=== PATIENT | female | born 1950 | race African-American/Black ===

== ENCOUNTER 2017-02-05 13:53 | Inpatient (IN) | payer MEDICARE, MEDICAID ==
[~2017-02-05] VITALS: Ht 165.1 cm; Wt 55.8 kg
[~2017-02-05 13:53] MED LIST: AMITIZA24 MCG ORAL; BISACODYL5 MG ORAL; IMIPRAMINE HCL50 MG PO; METOPROLOL TART50 M1 ORAL; NORVASC5 MG ORAL; PERCOCET 10-321 EACH ORAL; PLAVIX75 MG ORAL; PROTONIX40 MG ORAL; ZOFRAN8 MG ORAL; ZOLPIDEM TARTRA10 MG ORAL
[2017-02-05] MEDS ORDERED: RANITIDINE HCL150 M2 (19:43)
[2017-02-05] MEDS ORDERED: OXYCODONE-ACET1 EAC5 (19:43)
[2017-02-05] MEDS ORDERED: METOPROLOL TART25 MG (19:43)
[2017-02-05] MEDS ORDERED: ATORVASTATIN CA10 MG (19:43)
[2017-02-05] MEDS ORDERED: BETHANECHOL CHL10 MG (19:43)
[2017-02-05 20:05] VITALS: BP 154/96
[2017-02-05] MEDS ORDERED: Metoclopramide 10mg/2ml Inj IVP PRN (20:15)
[2017-02-05] MEDS ORDERED: TOFRANIL50 MG ORAL (20:31)
[2017-02-05] MEDS ORDERED: Bisacodyl EC 5mg tab ORAL PRN (21:00)
[2017-02-05 21:41] LABS: TROPONIN I < 0.30 ng/mL (<=0.30)
[2017-02-05] MEDS: Amitiza 24mcg cap ORAL SCH (21:48)
[2017-02-05] MEDS: Metoprolol 25mg tab ORAL SCH (21:48)
[2017-02-05] MEDS: D5NS 1,000 ML IV SCH (22:13)
[2017-02-05] MEDS: Nitroglycerin 2% oint pkt TOPIC SCH (23:45)
[2017-02-06 00:20] VITALS: BP 108/77
[2017-02-06 01:25] LABS: APPEARANCE,URINE CLEAR; KETONES,URINE 3+ (NEGATIVE); LEUKOCYTE ESTERASE ,URINE 1+ (NEGATIVE); NITRITE,URINE NEGATIVE (NEGATIVE); PH,URINE 5 (4.5-8.0); PROTEIN,URINE 2+ (NEGATIVE); UROBILINOGEN,URINE NORMAL MG/DL (0.0-1.0)
[2017-02-06 01:35] LABS: SQUAMOUS EPITHELIAL CELL,UR MANY /LPF (NONE/OCC)
[2017-02-06 01:36] LABS: BACTERIA,URINE FEW /HPF; MUCUS,URINE FEW /LPF (NONE/OCC)
--- NOTE | 2017-02-06 01:58 | Consultation ---
DATE OF CONSULTATION: 02/05/2017 CARDIOLOGY CONSULTATION REQUESTING PHYSICIAN: Sudhakar Conti M.D. REASON FOR CONSULTATION: Management of uncontrolled hypertension in the setting of intractable vomiting and ischemic cardiomyopathy. HISTORY OF PRESENT ILLNESS: This is a pleasant 66-year-old, female, known to me from prior care. She has a known history of ischemic heart disease with prior myocardial infarction and multivessel coronary artery stenting. She also has a history of labile hypertension complicated by episodes of cyclic vomiting that limit oral intake the later of which then began over the past day or two. The patient has not had any chest pain or shortness of breath but has had severe abdominal pain due to vomiting. PAST MEDICAL HISTORY: Includes coronary artery disease, hypertensive heart disease, gastroparesis with cyclic vomiting, hyperlipidemia, osteoarthritis, degenerative disk disease, and fibromyalgia. MEDICATION: Reviewed and reconciled. ALLERGIES: None. SOCIAL HISTORY: Former smoker. No alcohol or substance abuse. FAMILY HISTORY: Notable for hypertension in her mother. REVIEW OF SYSTEMS: Outpatient echocardiogram in the last six months has revealed normal ejection fraction with concentric hypertrophy and a diastolic relaxation abnormality. An exercise stress test was negative for inducible ischemia although exercise capacity was limited. There is no history of seizure or stroke. There is no history of diabetes or thyroid impairment. There is no history of blood clots in the legs. She has been on anti-lipid therapy. PHYSICAL EXAMINATION: GENERAL: Thin and frail, in moderate distress. VITAL SIGNS: Blood pressure 154/96, pulse 79, respirations 20, and afebrile. Room air oxygen saturation is 98%. HEENT: Conjunctivae are pink. Oropharynx is clear. Mucous membranes dry. NECK: Supple. No jugular venous distention. LUNGS: Clear. CARDIAC: Regular rhythm and rate. Normal S1 and S2 with a fourth heart sound. ABDOMEN: Soft and nondistended. Mild diffuse tenderness. No guarding or rebound. EXTREMITIES: Without edema. LABORATORY DATA: Troponin is negative. IMPRESSION: 1. Cyclic vomiting with acute episode at this time. 2. Mild hypovolemia and dehydration. 3. Hypertensive heart disease with accelerated blood pressure. 4. Ischemic cardiomyopathy presently with stable angina. PLAN: 1. Antiemetics. 2. Hydration. 3. Topical antihypertensives and nitrates. 4. Continue anti-platelet therapy and beta-blockade as tolerated. 5. May hold anti-lipid drug at this time. Jamar Pabon M.D. DR: CARLO JOB#: [id number] CC:
[2017-02-06 04:00] VITALS: BP 129/74
[2017-02-06] MEDS: Nitroglycerin 2% oint pkt TOPIC SCH ×3 (06:00→19:55)
[2017-02-06] MEDS: D5NS 1,000 ML IV SCH ×2 (06:10→19:55)
[2017-02-06 07:24] LABS: BASOPHILS % (AUTO) 1.1 % (0.0-2.0); EOSINOPHILS % (AUTO) 0.1 % (0.0-3.0); LYMPHOCYTES % (AUTO) 16.1 % (20.0-45.0); MEAN CORPUSCULAR HEMOGLOBIN 27.3 PG (27.0-31.0); MEAN CORPUSCULAR VOLUME 83 FL (80-99); MEAN PLATELET VOLUME 6.6 FL (6.5-10.1); MONOCYTES % (AUTO) 6.4 % (1.0-10.0); NEUTROPHILS % (AUTO) 76.3 % (45.0-75.0); PLATELET COUNT 334 K/UL (150-450); RED BLOOD COUNT 4.82 M/UL (4.20-5.40); RED CELL DISTRIBUTION WIDTH 13.4 % (11.6-14.8); WHITE BLOOD COUNT 10.7 K/UL (4.8-10.8)
[2017-02-06 07:43] LABS: ALANINE AMINOTRANSFERASE 8 U/L (3-33); ALBUMIN/GLOBULIN RATIO 1.4 (1.0-2.7); ANION GAP 17 (5-15); ASPARTATE AMINO TRANSFERASE 13 U/L (5-40); CARBON DIOXIDE 26 mEQ/L (20-30); CHLORIDE 100 mEQ/L (98-107); CREATININE 0.7 mg/dL (0.5-0.9); GLOMERULAR FILTRATION RATE > 60 mL/min (>60); HEMOLYSIS 1; POTASSIUM 3.7 mEQ/L (3.4-4.9); SODIUM 143 mEQ/L (135-145); TOTAL PROTEIN 7.2 g/dL (6.6-8.7)
[2017-02-06 08:01] VITALS: BP 125/73
[2017-02-06] MEDS: Metoprolol 25mg tab ORAL SCH ×2 (08:16→22:00)
[2017-02-06] MEDS: Amitiza 24mcg cap ORAL SCH ×2 (08:16→21:59)
[2017-02-06] MEDS ORDERED: Lidocaine 1% Plain 30 ml INJ ONE (10:00)
[2017-02-06] MEDS ORDERED: Heparin 2000 units/Ns 1000ml INJ ONE (10:00)
--- NOTE | 2017-02-06 12:23 | Diagnostic Imaging Report ---
Indication: Abdominal pain Technique: Spiral acquisitions obtained through the abdomen and pelvis. Patient given oral contrast. No IV contrast utilized, per referring physician request.. Multiplanar reconstructions were generated. Total dose length product 721 mGycm. CTDIvol(s) 14 mGy Comparison: 06/25/2015 Findings: Normal appendix. There is colonic diverticulosis again demonstrated. No evidence of acute diverticulitis. No small bowel distention or small bowel wall thickening. No free or loculated intraperitoneal air or fluid. There is equivocal mild wall thickening of the distal esophagus. There is equivocal mild diffuse wall thickening of the stomach, although this is probably artifact of under distention. Lack of IV contrast limits assessment of solid organs. The liver, gallbladder, bile ducts, are unremarkable. The pancreatic duct is mildly ectatic. The pancreas is otherwise unremarkable. Spleen, adrenals, kidneys are unremarkable. No mesenteric or retroperitoneal mass or adenopathy. No pelvic mass or adenopathy. Uterus, ovaries, bladder are unremarkable. The lung bases demonstrate posterior dependent atelectatic changes. The bones are unremarkable. Numerous bilateral buttock calcified injection granulomata are again demonstrated. Impression: Equivocal mild distal esophageal wall thickening, could indicate process such as esophagitis Equivocal mild gastric wall thickening, probably artifact of under distention, inflammation and not completely excludable. Correlate with clinical findings No definite acute abnormality otherwise Colonic diverticulosis. No evidence of diverticulitis. Other findings as noted, including bilateral basilar pulmonary dependent atelectatic changes, bilateral buttock calcified injection granulomata The CT scanner at [facility] is accredited by the [employer] [place] [employer] and the scans are performed using protocols designed to limit radiation exposure to as low as reasonably achievable to attain images of sufficient resolution adequate for diagnostic evaluation.
[2017-02-06 12:43] VITALS: BP 128/79
--- NOTE | 2017-02-06 13:29 | Diagnostic Imaging Report ---
Indications: Needs long-term IV access Technique: Ultrasound confirms patent compressible left basilic vein. Total sterile technique, including sterile probe cover and sterile gel, hat, mask,, sterile gown, large sterile drape, and preparation with 2% chlorhexidine utilized. Local anesthesia with 1% lidocaine. Under real-time ultrasound guidance, puncture basilic vein using 21-gauge needle, documented and archived, passage 0.018 guidewire under direct fluoroscopy, which was used to determine appropriate catheter length, exchange for 5 Lao peel-away sheath. 5 Lao Bard dual-lumen power PICC cut to 42 cm. It was inserted through the peel-away sheath. Peel-away sheath and guidewire removed. Catheter fixed to the skin. Both catheter ports aspirated and flushed. Patient tolerated procedure well, without immediate complication. Digital radiograph documents satisfactory catheter tip position, at the cavoatrial junction. Total fluoroscopy time 0.7 minutes. Total dose area product 7.4 dGycm2 Impression: Successful placement of left arm PICC under sonographic and fluoroscopic guidance, as described above.
[2017-02-06 16:00] VITALS: BP 129/73
--- NOTE | 2017-02-06 16:58 | History and Physical Report ---
DATE OF ADMISSION: 02/05/2017 CHIEF COMPLAINT: Intractable nausea and vomiting and possible gastrointestinal bleed. HISTORY OF PRESENT ILLNESS: The patient is a 66-year-old female, well known to me. She has a history of ischemic cardiomyopathy, hypertension, and fibromyalgia. She has a history of degenerative disk disease and cervical radiculopathy. She has had prior episodes of cyclic vomiting for the last several days. She has had intractable nausea and vomiting with over 20 episodes of vomiting a day. She had been unable to tolerate fluids or orals and was becoming progressively weaker. persistent nausea, vomiting, and dehydration. She is now admitted for further evaluation and care. The patient has had several episodes now of coffee-ground bloody emesis. She continues to have abdominal pain. There are no reports of any melena. The patient is on antiplatelet therapy for her coronary artery disease. PAST MEDICAL HISTORY: As above. PAST SURGICAL HISTORY: Includes neck and shoulder surgery. CURRENT MEDICATIONS: Reconciled and reviewed. ALLERGIES: Include oranges. FAMILY HISTORY: Noncontributory. SOCIAL HISTORY: Negative for tobacco, ethanol, or drugs. REVIEW OF SYSTEMS: General: No fever or chills. HEENT: No headaches or visual changes. Cardiopulmonary: No chest pain. No shortness of breath. GASTROINTESTINAL: Positive nausea and vomiting. Positive hematemesis. No melena. GENITOURINARY: No urgency or frequency. MUSCULOSKELETAL: Positive history of chronic lower back pain, neck pain, and shoulder pain. NEUROLOGIC: No evidence of seizures. PHYSICAL EXAMINATION: VITAL SIGNS: Temperature was 98 degrees, blood pressure 108/77, pulse 122, and respirations 20. GENERAL: The patient is a well-developed thin female, in no apparent distress. She is awake, alert, and oriented x4. HEENT: Her mucous membranes are dry. NECK: Supple. There is no jugular venous distention. HEART: Regular rate and rhythm. LUNGS: Clear. ABDOMEN: Soft, but diffusely tender with guarding, but there is no rebound. EXTREMITIES: Without clubbing, cyanosis, or edema. LABORATORY DATA: White count 11, hemoglobin 13, hematocrit 39, and platelet count 334,000. Sodium 143. Creatinine was 0.7. Alkaline phosphatase is 116. UA was clear. ASSESSMENT: This is a pleasant female admitted with complaints of intractable nausea and vomiting. She does have some coffee ground and bloody emesis, therefore, she may have a gastrointestinal bleed possible Zkaiya-Garvin tear. 1. Cyclic vomiting. 2. Possible upper gastrointestinal bleed. 3. Hypertension. 4. Ischemic cardiomyopathy. 5. History of chronic lower back pain and fibromyalgia. PLAN: 1. NPO. 2. Intravenous fluids. 3. Intravenous antiemetic therapy. 4. Continue IV proton pump inhibitor. 5. We will order a CAT scan of the abdomen and Cardiology evaluation has been obtained. 6. We will reassess the patient's anti-platelet therapy if she continues to have bloody emesis. Sudhakar Conti M.D. DR: DEREK JOB#: [id number] CC:
[2017-02-06 20:00] VITALS: BP 129/73
[2017-02-06] MEDS ORDERED: Imipramine 10mg tab ORAL ONE (21:00)
--- NOTE | 2017-02-06 21:38 | Consultation ---
DATE OF CONSULTATION: 02/06/2017 GASTROENTEROLOGY CONSULTATION: CHIEF COMPLAINT: I was asked to see this patient for evaluation of nausea and vomiting. HISTORY OF PRESENT ILLNESS: The patient is a pleasant 66-year-old woman with a previous history of cyclic nausea and vomiting syndrome, who comes in with vomiting. The patient states that this episode of vomiting subsided just one day prior to admission, but was severe and eventually resulted in hematemesis which is another reason for the consultation. The patient states that she gets these episodes about two times a year and that they only last a few days. She has been diagnosed with cyclic nausea and vomiting syndrome and she has been given imipramine. The patient also has severe chronic constipation and I have placed the patient as an outpatient on Linzess and Amitiza with effective results. I have advised the patient to always take the Amitiza with food. The patient saw me about a week or so ago for recurrent nausea and vomiting. At that time, she was placed on bethanechol at night for motility support and she was advised to return if symptoms persist. PAST MEDICAL HISTORY: History of coronary artery disease, history of hiatal hernia, gastritis, hypertension, gastroparesis, gastroesophageal reflux disease, recent incomplete colonoscopy, history of fibromyalgia, history of degenerative joint disease, osteoarthritis, status post cardiac stent placement, status post shoulder surgery, and carpal tunnel surgery. ALLERGIES: None. FAMILY HISTORY: Positive for hypertension in mother. SOCIAL HISTORY: The patient is a former smoker, but she does not drink alcohol. REVIEW OF SYSTEMS: Otherwise negative. PHYSICAL EXAMINATION: GENERAL: This is a pleasant woman, seen in her room HEENT: Normocephalic and atraumatic. Sclerae anicteric. Oropharynx clear. NECK: Supple. CHEST: Clear to auscultation. CARDIOVASCULAR: Revealed regular rate. ABDOMEN: Soft with good bowel sounds. There is no organomegaly. EXTREMITIES: Revealed no edema. NEUROLOGIC: Nonfocal. LABORATORY DATA: Noted . ASSESSMENT: This patient presents with recurrent bouts of nausea, vomiting, and now with hematemesis. The amount of hematemesis small and I suspect this may be due to Zakiya-Garvin tear. More importantly however, management for long-term recurrent nausea and vomiting which has presumably been diagnosed with cyclic nausea vomiting syndrome. Imipramine has been tried, but a trial of Elavil can be given instead. I would also resume bethanechol for motility support since Reglan with complication of of long-term side effects. Should the patient's symptoms persist, further evaluation may be necessary. RECOMMENDATIONS: 1. Proton pump inhibitor. 2. Elavil trial . 3. Oral diet to clear liquids as tolerated. 4. Follow symptoms and her vomiting pattern. Thank you for asking me to participate in care of this patient . Kim Varghese M.D. DR: Lilia JOB#: [id number] CC:
[2017-02-07] VITALS (10 sets, daily range): BP systolic 114–154; BP diastolic 69–97
--- NOTE | 2017-02-07 02:58 | Progress Note ---
DATE: 02/06/2017 CARDIOLOGY PROGRESS NOTE SUBJECTIVE: The patient has had vomiting and retching with some blood in the emesis as well. She notes pain in her chest with the vomiting, but pressure-like sensation as well. She is pretty sure, "that it is not her heart pain." OBJECTIVE: VITAL SIGNS: Blood pressure of 129/73, pulse 70, respirations 20, and afebrile. NECK: Supple. LUNGS: Clear. CARDIAC: Regular rhythm and rate. Normal S1 and S2. ABDOMEN: Soft, mildly distended, and mildly tender. EXTREMITIES: No edema. LABORATORY AND DIAGNOSTIC DATA: CAT scan of the abdomen, gastric wall thickening and esophageal wall thickening distally. Hemoglobin is 13.2. Potassium is 3.7. Urinalysis with 2 to 4 white cells. IMPRESSION: 1. Hematemesis. 2. Possible esophagitis and gastritis. 3. History of cyclic vomiting. 4. Ischemic cardiomyopathy with history of myocardial infarction and multivessel coronary stents. 5. Possible anginal syndrome. PLAN: 1. NPO. 2. Hold anti-platelet therapy. 3. Check troponin level. 4. Proton pump inhibitor. 5. Anticipate endoscopy. Jamar Pabon M.D. DR: GUNNAR JOB#: [id number] CC:
[2017-02-07] MEDS: D5NS 1,000 ML IV SCH ×2 (05:02→13:00)
[2017-02-07] MEDS: Nitroglycerin 2% oint pkt TOPIC SCH ×3 (05:15→18:42)
[2017-02-07 06:37] LABS: BASOPHILS % (AUTO) 0.8 % (0.0-2.0); EOSINOPHILS % (AUTO) 1.2 % (0.0-3.0); LYMPHOCYTES % (AUTO) 26.4 % (20.0-45.0); MEAN CORPUSCULAR HEMOGLOBIN 27.5 PG (27.0-31.0); MEAN CORPUSCULAR HGB CONC 32.5 G/DL (32.0-36.0); MEAN CORPUSCULAR VOLUME 85 FL (80-99); MEAN PLATELET VOLUME 6.5 FL (6.5-10.1); MONOCYTES % (AUTO) 6.6 % (1.0-10.0); NEUTROPHILS % (AUTO) 64.9 % (45.0-75.0); PLATELET COUNT 267 K/UL (150-450); RED BLOOD COUNT 4.24 M/UL (4.20-5.40); RED CELL DISTRIBUTION WIDTH 13.6 % (11.6-14.8); WHITE BLOOD COUNT 8.1 K/UL (4.8-10.8)
[2017-02-07 07:02] LABS: TROPONIN I < 0.30 ng/mL (<=0.30)
[2017-02-07 07:03] LABS: ALANINE AMINOTRANSFERASE 7 U/L (3-33); ALBUMIN/GLOBULIN RATIO 1.5 (1.0-2.7); ANION GAP 16 (5-15); ASPARTATE AMINO TRANSFERASE 17 U/L (5-40); CALCIUM 8.8 mg/dL (8.6-10.2); CARBON DIOXIDE 26 mEQ/L (20-30); CHLORIDE 102 mEQ/L (98-107); CREATININE 0.7 mg/dL (0.5-0.9); GLOMERULAR FILTRATION RATE > 60 mL/min (>60); HEMOLYSIS 2; MAGNESIUM 1.7 mg/dL (1.7-2.5); POTASSIUM 3.1 mEQ/L (3.4-4.9); SODIUM 144 mEQ/L (135-145); TOTAL PROTEIN 6.2 g/dL (6.6-8.7)
[2017-02-07] MEDS: Amitiza 24mcg cap ORAL SCH ×2 (09:13→21:41)
[2017-02-07] MEDS: Metoprolol 25mg tab ORAL SCH ×2 (09:15→21:41)
--- NOTE | 2017-02-07 09:44 | General Progress Note ---
Assessment/Plan Problem List: (1) tachy (2) Dehydration ICD Codes: E86.0 - Dehydration SNOMED: 61786382 (3) Intractable nausea and vomiting ICD Codes: R11.10 - Intractable nausea and vomiting SNOMED: 233155503 (4) Cyclic vomiting syndrome ICD Codes: G43.A0 - Cyclical vomiting, not intractable SNOMED: 66533841 (5) GIB (gastrointestinal bleeding) ICD Codes: K92.2 - Gastrointestinal hemorrhage, unspecified SNOMED: 24905530 (6) CAD (coronary artery disease) ICD Codes: I25.10 - Atherosclerotic heart disease of [place] coronary artery without angina pectoris SNOMED: 66053943 (7) Hypertension ICD Codes: I10 - Essential (primary) hypertension SNOMED: 94395221 Status: stable, progressing Assessment/Plan cont ivf pain rx antiemtics egd PPI rx improving slowly Subjective ROS Limited/Unobtainable: No Constitutional: Reports: malaise, weakness HEENT: Reports: no symptoms Cardiovascular: Reports: no symptoms Respiratory: Reports: no symptoms Gastrointestinal/Abdominal: Reports: abdominal pain, poor fluid intake, vomiting Genitourinary: Reports: no symptoms Neurologic/Psychiatric: Reports: no symptoms Endocrine: Reports: no symptoms Hematologic/Lymphatic: Reports: no symptoms Allergies: Coded Allergies: ORANGE JUICE (Verified Allergy, Unknown, 06/25/14) All Systems: reviewed and negative except above Subjective less vomiting. still has some blood in vomitus. on iv pain rx no chest pain no sob no fever or chills npo for egd. Objective Last 24 Hour Vital Signs Date Time Temp Pulse Resp B/P Pulse Ox O2 Delivery O2 Flow Rate FiO2 02/07/17 09:15 80 138/88 02/07/17 05:40 98.2 02/07/17 05:15 137/73 02/07/17 04:00 97.7 75 18 137/73 99 Room Air 02/07/17 00:00 97.2 68 18 117/73 99 Room Air 02/06/17 22:00 70 129/73 02/06/17 20:00 97.3 70 20 129/73 91 Room Air 02/06/17 19:55 129/73 02/06/17 16:00 97.3 70 20 129/73 91 Room Air 02/06/17 12:57 128/79 02/06/17 12:43 98.2 69 20 128/79 95 Room Air Intake and Output 02/06/17 02/07/17 19:00 07:00 Intake Total 900 ml 1480 ml Balance 900 ml 1480 ml Intake Oral 480 ml IV Total 900 ml 1000 ml # Voids 2 Laboratory Tests 02/07/17 05:00: White Blood Count 8.1, Red Blood Count 4.24, Hemoglobin 11.7L, Hematocrit 35.9L , Mean Corpuscular Volume 85, Mean Corpuscular Hemoglobin 27.5, Mean Corpuscular Hemoglobin Concent 32.5, Red Cell Distribution Width 13.6, Platelet Count 267, Mean Platelet Volume 6.5, Neutrophils (%) (Auto) 64.9, Lymphocytes (% ) (Auto) 26.4, Monocytes (%) (Auto) 6.6, Eosinophils (%) (Auto) 1.2, Basophils ( %) (Auto) 0.8, Sodium Level 144, Potassium Level 3.1L, Chloride Level 102, Carbon Dioxide Level 26, Anion Gap 16H, Blood Urea Nitrogen 4L, Creatinine 0.7, Estimat Glomerular Filtration Rate > 60, Glucose Level 93, Calcium Level 8.8, Magnesium Level 1.7, Total Bilirubin 0.2, Aspartate Amino Transf (AST/SGOT) 17, Alanine Aminotransferase (ALT/SGPT) 7, Alkaline Phosphatase 109H, Troponin I < 0.30, Total Protein 6.2L, Albumin 3.8, Globulin 2.4, Albumin/Globulin Ratio 1.5 Height (Feet): 5 Height (Inches): 5.00 Weight (Pounds): 123 General Appearance: WD/WN, alert, mild distress Neck: supple Cardiovascular: normal rate, regular rhythm Respiratory/Chest: chest wall non-tender, lungs clear, normal breath sounds, no respiratory distress, no accessory muscle use Abdomen: normal bowel sounds, soft, no organomegaly, no mass, tender Edema: no edema noted Arm (L), no edema noted Arm (R), no edema noted Leg (L), no edema noted Leg (R), no edema noted Pedal (L), no edema noted Pedal (R), no edema noted Generalized LACY DUFFY Feb 07, 2017 09:44
[2017-02-07] MEDS ORDERED: LR 1000ml ONE (13:00)
[2017-02-07] MEDS ORDERED: Lidocaine 1% MPF 10mg/ml 5ml ONE (13:00)
[2017-02-07] MEDS ORDERED: Propofol 10mg/ml 20ml IV ONE (13:00)
--- NOTE | 2017-02-07 13:21 | Anethesia Preoperative Eval ---
Anesthesia Pre-op PMH/ROS General Date of Evaluation: Feb 07, 2017 Time of Evaluation: 13:19 Anesthesiologist: tracee ASA Score: ASA 2 Mallampati Score Class I : Soft palate, uvula, fauces, pillars visible Class II: Soft palate, uvula, fauces visible Class III: Soft palate, base of uvula visible Class IV: Only hard plate visible Mallampati Classification: Class II Surgeon: romero Diagnosis: vomiting Surgical Procedure: egd Anesthesia History: none Family History: no anesthesia problems Allergies: Coded Allergies: ORANGE JUICE (Verified Allergy, Unknown, 06/25/14) Medications: see eMAR Past Medical History Cardiovascular: Reports: CAD, HTN Pulmonary: Denies: COPD, JEFF, asthma, other Neurologic/Psychiatric: Denies: CVA, TIA, dementia, depression/anxiety, other Endocrine: Denies: DM, hypothyroidism, other, steroids HEENT: Denies: [place] (L), [place] (R), cataract (L), cataract (R), glaucoma, other Hematology/Immune: Denies: DVT, anemia, bleeding disorder, other Musculoskeletal/Integumentary: Denies: DDD, DJD, OA, RA, edema, other PMH Narrative: 1. Cyclic vomiting. 2. Possible upper gastrointestinal bleed. 3. Hypertension. 4. Ischemic cardiomyopathy. 5. History of chronic lower back pain and fibromyalgia. Anesthesia Pre-op Phys. Exam Physician Exam Last Vital Signs Date Time Temp Pulse Resp B/P Pulse Ox O2 Delivery O2 Flow Rate FiO2 02/07/17 11:28 148/97 02/07/17 09:15 80 02/07/17 05:40 98.2 02/07/17 04:00 18 99 Room Air Constitutional: NAD Neurologic: CN 2-12 intact Cardiovascular: RRR Respiratory: CTA Gastrointestinal: S/NT/ND Airway Exam Mallampati Classification 2 Mallampati Score: Class II MO: full ROM: full Dentures: no lower, no upper Anesthesia Pre-op A/P Labs Hematology Test 02/07/17 05:00 White Blood Count 8.1 K/UL (4.8-10.8) Red Blood Count 4.24 M/UL (4.20-5.40) Hemoglobin 11.7 G/DL (12.0-16.0) L Hematocrit 35.9 % (37.0-47.0) L Mean Corpuscular Volume 85 FL (80-99) Mean Corpuscular Hemoglobin 27.5 PG (27.0-31.0) Mean Corpuscular Hemoglobin Concent 32.5 G/DL (32.0-36.0) Red Cell Distribution Width 13.6 % (11.6-14.8) Platelet Count 267 K/UL (150-450) Mean Platelet Volume 6.5 FL (6.5-10.1) Neutrophils (%) (Auto) 64.9 % (45.0-75.0) Lymphocytes (%) (Auto) 26.4 % (20.0-45.0) Monocytes (%) (Auto) 6.6 % (1.0-10.0) Eosinophils (%) (Auto) 1.2 % (0.0-3.0) Basophils (%) (Auto) 0.8 % (0.0-2.0) Chemistry Test 02/07/17 05:00 Sodium Level 144 mEQ/L (135-145) Potassium Level 3.1 mEQ/L (3.4-4.9) L Chloride Level 102 mEQ/L (98-107) Carbon Dioxide Level 26 mEQ/L (20-30) Anion Gap 16 (5-15) H Blood Urea Nitrogen 4 mg/dL (7-23) L Creatinine 0.7 mg/dL (0.5-0.9) Estimat Glomerular Filtration Rate > 60 mL/min (>60) Glucose Level 93 mg/dL (74-106) Calcium Level 8.8 mg/dL (8.6-10.2) Magnesium Level 1.7 mg/dL (1.7-2.5) Total Bilirubin 0.2 mg/dL (0.0-1.2) Aspartate Amino Transf (AST/SGOT) 17 U/L (5-40) Alanine Aminotransferase (ALT/SGPT) 7 U/L (3-33) Alkaline Phosphatase 109 U/L (35-104) H Troponin I < 0.30 ng/mL (<=0.30) Total Protein 6.2 g/dL (6.6-8.7) L Albumin 3.8 g/dL (3.5-5.2) Globulin 2.4 g/dL Albumin/Globulin Ratio 1.5 (1.0-2.7) Studies Pre-op Studies: EKG - sr Risk Assessment & Plan Plan: mac Status Change Before Surgery: No Pre-Antibiotics Drug: KANNAN Morrissey CRNA Feb 07, 2017 13:21
--- NOTE | 2017-02-07 13:31 | General Progress Note ---
Assessment/Plan Assessment/Plan Assessment - mildly elevated alk phos - h/o cycliic N/V syndrome - UGIB Recommendation - check GGT - NPO - PPI - Elavil trial - EGD today Subjective Allergies: Coded Allergies: ORANGE JUICE (Verified Allergy, Unknown, 06/25/14) Subjective Feels OK no vomiting wants to eat Objective Last 24 Hour Vital Signs Date Time Temp Pulse Resp B/P Pulse Ox O2 Delivery O2 Flow Rate FiO2 02/07/17 11:28 148/97 02/07/17 09:15 80 138/88 02/07/17 05:40 98.2 02/07/17 05:15 137/73 02/07/17 04:00 97.7 75 18 137/73 99 Room Air 02/07/17 00:00 97.2 68 18 117/73 99 Room Air 02/06/17 22:00 70 129/73 02/06/17 20:00 97.3 70 20 129/73 91 Room Air 02/06/17 19:55 129/73 02/06/17 16:00 97.3 70 20 129/73 91 Room Air Intake and Output 02/06/17 02/07/17 19:00 07:00 Intake Total 900 ml 1480 ml Balance 900 ml 1480 ml Intake Oral 480 ml IV Total 900 ml 1000 ml # Voids 2 Laboratory Tests 02/07/17 05:00: White Blood Count 8.1, Red Blood Count 4.24, Hemoglobin 11.7L, Hematocrit 35.9L , Mean Corpuscular Volume 85, Mean Corpuscular Hemoglobin 27.5, Mean Corpuscular Hemoglobin Concent 32.5, Red Cell Distribution Width 13.6, Platelet Count 267, Mean Platelet Volume 6.5, Neutrophils (%) (Auto) 64.9, Lymphocytes (% ) (Auto) 26.4, Monocytes (%) (Auto) 6.6, Eosinophils (%) (Auto) 1.2, Basophils ( %) (Auto) 0.8, Sodium Level 144, Potassium Level 3.1L, Chloride Level 102, Carbon Dioxide Level 26, Anion Gap 16H, Blood Urea Nitrogen 4L, Creatinine 0.7, Estimat Glomerular Filtration Rate > 60, Glucose Level 93, Calcium Level 8.8, Magnesium Level 1.7, Total Bilirubin 0.2, Aspartate Amino Transf (AST/SGOT) 17, Alanine Aminotransferase (ALT/SGPT) 7, Alkaline Phosphatase 109H, Troponin I < 0.30, Total Protein 6.2L, Albumin 3.8, Globulin 2.4, Albumin/Globulin Ratio 1.5 Height (Feet): 5 Height (Inches): 5.00 Weight (Pounds): 123 Objective WDWN AA woman NCAT supple CTA RRR soft ND NT no edema non focal TD QUINN Feb 07, 2017 13:31
--- NOTE | 2017-02-07 13:31 | Pre-Procedure Note/Attestation ---
Pre-Procedure Note/Attestation Complete Prior to Procedure Planned Procedure: not applicable Procedure Narrative: egd Indications for Procedure Pre-Operative Diagnosis: ugib Attestation I attest that I discussed the nature of the procedure; its benefits; risks and complications; and alternatives (and the risks and benefits of such alternatives ), prior to the procedure, with the patient (or the patient's legal distribution sales representative). I attest that, if there was a reasonable possibility of needing a blood transfusion, the patient (or the patient's legal distribution sales representative) was given the [facility] standardized written summary, pursuant to the [place] Blood Safety Act ([place] Health and Safety Code # 1645, as amended). I attest that I re-evaluated the patient just prior to the surgery and that there has been no change in the patient's H&P, except as documented below: TD QUINN Feb 07, 2017 13:31
--- NOTE | 2017-02-07 13:48 | Endoscopy Procedure Note ---
Endoscopy Procedure Note Indication for Procedure: UGIB Procedures Performed: EGD Operative Findings/Diagnosis: 3 cm HH, GERD with 1/2 esoph erosions, bx mid esoph, stomach normal Anesthesiologist: Miranda Anesthesia: moderate sedation Medication Given: see anesthesia record 50 yrs or older w/o bx or poly: Not Applicable 10yrs. F/U not recommended: Not Applicable If not recommended, why?: TD QUINN Feb 07, 2017 13:48
--- NOTE | 2017-02-07 13:49 | Brief Operative Note ---
Immediate Post Operative Note Operative Note Pre-op Diagnosis: ugib Procedure: 3 cm HH, GERD with 1/2 esoph erosions, bx mid esoph, stomach normal Surgeon: aidee Anesthesia: MAC, moderate sedation Specimen: yes Complications: none Condition: stable Estimated Blood Loss: none Drains: none Implant(s) used?: No TD QUINN Feb 07, 2017 13:49
--- NOTE | 2017-02-07 13:50 | Immediate Post-Op Evaluation ---
Immediate Post-Op Evalulation Immediate Post-Op Evalulation Procedure: EGD Date of Evaluation: Feb 07, 2017 Time of Evaluation: 13:49 IV Fluids: 500 Blood Pressure Systolic: 117 Blood Pressure Diastolic: 75 Pulse Rate: 75 Respiratory Rate: 14 O2 Sat by Pulse Oximetry: 97 Temperature (Fahrenheit): 97.0 Nausea: No Vomiting: No Complications none Patient Status: awake, reacts, patent Hydration Status: adequate Drug: none KANNAN IGLESIAS CRNA Feb 07, 2017 13:50
--- NOTE | 2017-02-07 18:33 | Cardiology Report ---
APPROVED REPORT EKG Measurement Heart [id number] Normal sinus rhythm Abnormal QRS-T angle, consider primary T wave abnormality Prolonged QT Abnormal ECG
--- NOTE | 2017-02-07 19:08 | Operative Note - Dictated ---
DATE OF OPERATION: 02/07/2017 PROCEDURE: Upper gastroendoscopy with biopsy. SURGEON: Kim Varghese M.D. ANESTHESIA: Please see the separate anesthesiologist notes for details. PRE-ENDOSCOPIC DIAGNOSIS: Upper gastrointestinal bleeding. POST-ENDOSCOPIC DIAGNOSES: 1. A 1.3 cm hiatal hernia. 2. Extensive gastroesophageal reflux disease with reflux-related erosions in the lower one-third of the esophagus. 3. without evidence of inflammation or other abnormalities. 4. Status post random biopsy of the mid esophagus. PROCEDURE: The procedure, its risks, indications, alternatives, and possible complications were explained. An informed consent was obtained. The patient was then sedated in the left lateral decubitus position. A diagnostic upper endoscope was introduced through the oropharynx and advanced to the duodenum. The endoscope was then gradually withdrawn and the mucosa examined carefully. Examination was notable for above findings. No active bleeding was identified. The endoscope was removed. The patient was sent to recovery in good condition. COMPLICATIONS: None. RECOMMENDATIONS: 1. Followup biopsy results. 2. Reflux precautions. 3. Proton pump inhibitor. 4. By mouth diet. Kim Varghese M.D. DR: JANINE JOB#: [id number] CC:
--- NOTE | 2017-02-07 22:38 | Progress Note ---
DATE: 02/07/2017 CARDIOLOGY PROGRESS NOTE: SUBJECTIVE: The patient had an upper endoscopy today. Findings were notable for esophageal ulcerations and hiatal hernia. The patient still has nausea and vomiting, but less frequent. OBJECTIVE: VITAL SIGNS: Blood pressure is 114/69, pulse 75, respirations 20, and afebrile. NECK: Supple. LUNGS: Clear. CARDIAC: Regular rhythm and rate. Normal S1 and S2 with a fourth heart sound. ABDOMEN: Soft, mildly distended, and tender in the midepigastrium. EXTREMITIES: Without edema. LABORATORY DATA: White count is 8.1 and hemoglobin 11.7. Sodium is 144, potassium 3.1, BUN 4, creatinine 0.7, and bicarbonate 26. Albumin is 3.8. Troponin is negative. Magnesium is 1.7. IMPRESSION: 1. Frequent vomiting. 2. Esophagitis with gastrointestinal bleeding. 3. Ischemic cardiomyopathy. 4. Anginal episode. 5. Hypertensive heart disease. 6. Hypokalemia. 7. Anemia following gastrointestinal blood loss. PLAN: 1. Advanced diet. 2. Replace potassium. 3. Empiric magnesium therapy. 4. Hold anti-platelet drugs. 5. Monitor blood counts. Jamar Pabon M.D. DR: Melida JOB#: [id number] CC:
[2017-02-08] VITALS: BP 136/79
[2017-02-08 04:00] VITALS: BP 129/69
[2017-02-08] MEDS: Nitroglycerin 2% oint pkt TOPIC SCH ×3 (06:56→17:54)
[2017-02-08 07:08] LABS: ANION GAP 15 (5-15); CALCIUM 8.8 mg/dL (8.6-10.2); CARBON DIOXIDE 30 mEQ/L (20-30); CHLORIDE 95 mEQ/L (98-107); CREATININE 0.6 mg/dL (0.5-0.9); GLOMERULAR FILTRATION RATE > 60 mL/min (>60); HEMOLYSIS 3; POTASSIUM 3.1 mEQ/L (3.4-4.9); SODIUM 140 mEQ/L (135-145)
[2017-02-08 07:12] LABS: BASOPHILS % (AUTO) 1.1 % (0.0-2.0); EOSINOPHILS % (AUTO) 3.2 % (0.0-3.0); LYMPHOCYTES % (AUTO) 24.7 % (20.0-45.0); MEAN CORPUSCULAR HEMOGLOBIN 26.9 PG (27.0-31.0); MEAN CORPUSCULAR VOLUME 84 FL (80-99); MONOCYTES % (AUTO) 7.3 % (1.0-10.0); NEUTROPHILS % (AUTO) 63.7 % (45.0-75.0); PLATELET COUNT 242 K/UL (150-450); RED BLOOD COUNT 4.54 M/UL (4.20-5.40); RED CELL DISTRIBUTION WIDTH 13.6 % (11.6-14.8); WHITE BLOOD COUNT 7.5 K/UL (4.8-10.8)
--- NOTE | 2017-02-08 07:37 | General Progress Note ---
Assessment/Plan Problem List: (1) Vomiting ICD Codes: R11.10 - Vomiting, unspecified SNOMED: 746448132 (2) GIB (gastrointestinal bleeding) ICD Codes: K92.2 - Gastrointestinal hemorrhage, unspecified SNOMED: 50542353 Assessment/Plan change protonix to BID add carafate fu labs KCL advance diet Subjective ROS Limited/Unobtainable: Yes Allergies: Coded Allergies: ORANGE JUICE (Verified Allergy, Unknown, 06/25/14) Subjective no event Objective Last 24 Hour Vital Signs Date Time Temp Pulse Resp B/P Pulse Ox O2 Delivery O2 Flow Rate FiO2 02/08/17 07:33 97.9 02/08/17 06:56 129/69 02/08/17 04:00 97.9 78 18 129/69 97 Room Air 02/08/17 00:00 97.5 90 20 136/79 95 Room Air 02/07/17 21:41 75 154/88 02/07/17 20:00 97.5 75 20 154/88 96 Room Air 02/07/17 18:42 146/82 02/07/17 16:00 97.9 74 20 146/82 98 Room Air 02/07/17 14:00 97.3 75 20 114/69 100 Room Air 02/07/17 13:50 75 20 130/79 100 Room Air 02/07/17 13:50 75 14 97 02/07/17 13:45 77 20 125/77 97 Simple Mask 8.0 02/07/17 13:40 97.3 77 20 117/75 97 Simple Mask 8.0 02/07/17 12:00 97.7 95 20 148/97 95 Room Air 02/07/17 11:28 148/97 02/07/17 09:15 80 138/88 02/07/17 08:00 97.0 77 20 145/89 95 Room Air Intake and Output 02/07/17 02/08/17 19:00 07:00 Intake Total 750 ml 1230 ml Balance 750 ml 1230 ml Intake Oral 480 ml IV Total 750 ml 750 ml # Voids 5 Laboratory Tests 02/08/17 06:00: White Blood Count 7.5, Red Blood Count 4.54, Hemoglobin 12.2, Hematocrit 38.2, Mean Corpuscular Volume 84, Mean Corpuscular Hemoglobin 26.9L, Mean Corpuscular Hemoglobin Concent 32.0, Red Cell Distribution Width 13.6, Platelet Count 242, Mean Platelet Volume 6.0L, Neutrophils (%) (Auto) 63.7, Lymphocytes (%) (Auto) 24.7, Monocytes (%) (Auto) 7.3, Eosinophils (%) (Auto) 3.2H, Basophils (%) (Auto ) 1.1, Sodium Level 140, Potassium Level 3.1L, Chloride Level 95L, Carbon Dioxide Level 30, Anion Gap 15, Blood Urea Nitrogen 3L, Creatinine 0.6, Estimat Glomerular Filtration Rate > 60, Glucose Level 100, Calcium Level 8.8 Height (Feet): 5 Height (Inches): 5.00 Weight (Pounds): 123 General Appearance: alert EENT: normal ENT inspection Neck: supple Cardiovascular: normal rate Respiratory/Chest: lungs clear Abdomen: normal bowel sounds, non tender, soft Extremities: non-tender JULIUS SAHU Feb 08, 2017 07:37
[2017-02-08 08:00] VITALS: BP 158/87
[2017-02-08] MEDS: Metoprolol 25mg tab ORAL SCH ×2 (09:02→22:57)
[2017-02-08] MEDS: Amitiza 24mcg cap ORAL SCH ×2 (09:02→22:57)
[2017-02-08] MEDS: Sucralfate 1gm tab ORAL SCH ×4 (09:02→22:56)
--- NOTE | 2017-02-08 11:39 | General Progress Note ---
Assessment/Plan Problem List: (1) tachy (2) Dehydration ICD Codes: E86.0 - Dehydration SNOMED: 64101302 (3) Intractable nausea and vomiting ICD Codes: R11.10 - Intractable nausea and vomiting SNOMED: 640377042 (4) Cyclic vomiting syndrome ICD Codes: G43.A0 - Cyclical vomiting, not intractable SNOMED: 54111838 (5) GIB (gastrointestinal bleeding) ICD Codes: K92.2 - Gastrointestinal hemorrhage, unspecified SNOMED: 62615960 (6) CAD (coronary artery disease) ICD Codes: I25.10 - Atherosclerotic heart disease of [place] coronary artery without angina pectoris SNOMED: 43166633 (7) Hypertension ICD Codes: I10 - Essential (primary) hypertension SNOMED: 90396360 Status: stable, progressing Assessment/Plan cont ivf pain rx antiemtics replace k PPI rx improving slowly advance diet Subjective ROS Limited/Unobtainable: No Constitutional: Reports: weakness HEENT: Reports: no symptoms Cardiovascular: Reports: no symptoms Respiratory: Reports: no symptoms Gastrointestinal/Abdominal: Reports: abdominal pain, vomiting Genitourinary: Reports: no symptoms Neurologic/Psychiatric: Reports: no symptoms Endocrine: Reports: no symptoms Hematologic/Lymphatic: Reports: no symptoms Allergies: Coded Allergies: ORANGE JUICE (Verified Allergy, Unknown, 06/25/14) All Systems: reviewed and negative except above Subjective no vomiting. only tolerating clears. still with severe abd pain but less. no hematemesis Objective Last 24 Hour Vital Signs Date Time Temp Pulse Resp B/P Pulse Ox O2 Delivery O2 Flow Rate FiO2 02/08/17 09:02 76 158/87 02/08/17 08:00 98.1 76 16 158/87 98 Room Air 02/08/17 07:33 97.9 02/08/17 06:56 129/69 02/08/17 04:00 97.9 78 18 129/69 97 Room Air 02/08/17 00:00 97.5 90 20 136/79 95 Room Air 02/07/17 21:41 75 154/88 02/07/17 20:00 97.5 75 20 154/88 96 Room Air 02/07/17 18:42 146/82 02/07/17 16:00 97.9 74 20 146/82 98 Room Air 02/07/17 14:00 97.3 75 20 114/69 100 Room Air 02/07/17 13:50 75 20 130/79 100 Room Air 02/07/17 13:50 75 14 97 02/07/17 13:45 77 20 125/77 97 Simple Mask 8.0 02/07/17 13:40 97.3 77 20 117/75 97 Simple Mask 8.0 02/07/17 12:00 97.7 95 20 148/97 95 Room Air Intake and Output 02/07/17 02/08/17 19:00 07:00 Intake Total 750 ml 1230 ml Balance 750 ml 1230 ml Intake Oral 480 ml IV Total 750 ml 750 ml # Voids 5 Laboratory Tests 02/08/17 06:00: White Blood Count 7.5, Red Blood Count 4.54, Hemoglobin 12.2, Hematocrit 38.2, Mean Corpuscular Volume 84, Mean Corpuscular Hemoglobin 26.9L, Mean Corpuscular Hemoglobin Concent 32.0, Red Cell Distribution Width 13.6, Platelet Count 242, Mean Platelet Volume 6.0L, Neutrophils (%) (Auto) 63.7, Lymphocytes (%) (Auto) 24.7, Monocytes (%) (Auto) 7.3, Eosinophils (%) (Auto) 3.2H, Basophils (%) (Auto ) 1.1, Sodium Level 140, Potassium Level 3.1L, Chloride Level 95L, Carbon Dioxide Level 30, Anion Gap 15, Blood Urea Nitrogen 3L, Creatinine 0.6, Estimat Glomerular Filtration Rate > 60, Glucose Level 100, Calcium Level 8.8 Height (Feet): 5 Height (Inches): 5.00 Weight (Pounds): 123 Objective General Appearance: WD/WN, alert, mild distress Neck: supple Cardiovascular: normal rate, regular rhythm Respiratory/Chest: chest wall non-tender, lungs clear, normal breath sounds, no respiratory distress, no accessory muscle use Abdomen: normal bowel sounds, soft, no organomegaly, no mass, tender Edema: no edema noted Arm (L), no edema noted Arm (R), no edema noted Leg (L), no edema noted Leg (R), no edema noted Pedal (L), no edema noted Pedal (R), no edema noted Generalized LACY DUFFY Feb 08, 2017 11:39
[2017-02-08 11:59] VITALS: BP 144/83
[2017-02-08 16:00] VITALS: BP 133/85
[2017-02-08 20:00] VITALS: BP 136/81
[2017-02-08] MEDS ORDERED: ceFAZolin sod 1 GM in D5W 55 ML IVPB SCH (23:45)
[2017-02-09] VITALS: BP 130/77
--- NOTE | 2017-02-09 00:18 | Progress Note ---
DATE: 02/08/2017 CARDIOLOGY PROGRESS NOTE SUBJECTIVE: The patient with less pain, less nausea. Tolerating some intake. No chest pain. OBJECTIVE: VITAL SIGNS: Blood pressure 158/87, earlier 129/69, heart rate 76, respiratory rate 16, and afebrile. NECK: Supple. LUNGS: Clear. CARDIAC: Regular. Normal S1 and S2 with a fourth heart sound. ABDOMEN: Soft. Minimal midepigastric pain. No edema. LABORATORY AND DIAGNOSTIC DATA: Urine culture with E. coli. White count 7.5 and hemoglobin 12.2. Potassium 3.1, BUN 3, and creatinine 0.6. IMPRESSION: 1. Cyclic vomiting. 2. Hiatal hernia. 3. Esophageal ulcers. 4. Hypokalemia. 5. Hypomagnesemia. 6. Coronary artery disease. 7. Stable angina. 8. Escherichia coli urinary tract infection. 9. Hypertensive heart disease. PLAN: Continue beta-liz, advance dosing, topical nitrates, intravenous antibiotics, and proton pump inhibitor. Hold antiplatelet therapy. Jamar Pabon M.D. DR: Vanessa JOB#: [id number] CC:
[2017-02-09 04:00] VITALS: BP 116/55
[2017-02-09] MEDS: Nitroglycerin 2% oint pkt TOPIC SCH ×3 (05:41→18:06)
[2017-02-09 06:20] LABS: BASOPHILS % (AUTO) 1.1 % (0.0-2.0); EOSINOPHILS % (AUTO) 4.8 % (0.0-3.0); LYMPHOCYTES % (AUTO) 28.3 % (20.0-45.0); MEAN CORPUSCULAR HEMOGLOBIN 26.5 PG (27.0-31.0); MEAN CORPUSCULAR HGB CONC 31.4 G/DL (32.0-36.0); MEAN CORPUSCULAR VOLUME 84 FL (80-99); MEAN PLATELET VOLUME 6.9 FL (6.5-10.1); MONOCYTES % (AUTO) 8.2 % (1.0-10.0); NEUTROPHILS % (AUTO) 57.6 % (45.0-75.0); PLATELET COUNT 241 K/UL (150-450); RED BLOOD COUNT 4.42 M/UL (4.20-5.40); RED CELL DISTRIBUTION WIDTH 13.5 % (11.6-14.8)
[2017-02-09 06:33] LABS: MAGNESIUM 1.8 mg/dL (1.7-2.5)
[2017-02-09 06:38] LABS: ALANINE AMINOTRANSFERASE 13 U/L (3-33); ALBUMIN/GLOBULIN RATIO 1.4 (1.0-2.7); ANION GAP 16 (5-15); ASPARTATE AMINO TRANSFERASE 28 U/L (5-40); CALCIUM 9.1 mg/dL (8.6-10.2); CARBON DIOXIDE 28 mEQ/L (20-30); CHLORIDE 97 mEQ/L (98-107); CREATININE 0.7 mg/dL (0.5-0.9); GLOMERULAR FILTRATION RATE > 60 mL/min (>60); HEMOLYSIS 2; POTASSIUM 3.7 mEQ/L (3.4-4.9); SODIUM 141 mEQ/L (135-145); TOTAL PROTEIN 6.2 g/dL (6.6-8.7)
[2017-02-09 08:00] VITALS: BP 133/74
--- NOTE | 2017-02-09 08:02 | General Progress Note ---
Assessment/Plan Problem List: (1) Vomiting ICD Codes: R11.10 - Vomiting, unspecified SNOMED: 077788811 (2) GIB (gastrointestinal bleeding) ICD Codes: K92.2 - Gastrointestinal hemorrhage, unspecified SNOMED: 35017559 Assessment/Plan protonix to BID carafate reflux measures fu labs tolerates diet Subjective ROS Limited/Unobtainable: Yes Allergies: Coded Allergies: ORANGE JUICE (Verified Allergy, Unknown, 06/25/14) Subjective no event Objective Last 24 Hour Vital Signs Date Time Temp Pulse Resp B/P Pulse Ox O2 Delivery O2 Flow Rate FiO2 02/09/17 06:23 97.9 02/09/17 05:41 132/80 02/09/17 04:00 97.9 75 19 116/55 91 Room Air 02/09/17 00:00 98.1 78 19 130/77 96 Room Air 02/08/17 22:57 90 136/81 02/08/17 20:00 97.9 90 18 136/81 98 Room Air 02/08/17 17:54 133/85 02/08/17 16:00 98.2 75 18 133/85 99 Room Air 02/08/17 12:53 144/83 02/08/17 11:59 98.4 74 16 144/83 97 Room Air 02/08/17 09:02 76 158/87 Intake and Output 02/08/17 02/09/17 19:00 07:00 Intake Total 800 ml 775 ml Balance 800 ml 775 ml Intake Oral 800 ml 720 ml IV Total 55 ml # Voids 2 3 Laboratory Tests 02/09/17 05:00: White Blood Count 6.0, Red Blood Count 4.42, Hemoglobin 11.7L, Hematocrit 37.3, Mean Corpuscular Volume 84, Mean Corpuscular Hemoglobin 26.5L, Mean Corpuscular Hemoglobin Concent 31.4L, Red Cell Distribution Width 13.5, Platelet Count 241, Mean Platelet Volume 6.9, Neutrophils (%) (Auto) 57.6, Lymphocytes (%) (Auto) 28.3, Monocytes (%) (Auto) 8.2, Eosinophils (%) (Auto) 4.8H, Basophils (%) (Auto ) 1.1, Sodium Level 141, Potassium Level 3.7, Chloride Level 97L, Carbon Dioxide Level 28, Anion Gap 16H, Blood Urea Nitrogen 5L, Creatinine 0.7, Estimat Glomerular Filtration Rate > 60, Glucose Level 89, Calcium Level 9.1, Magnesium Level 1.8, Total Bilirubin 0.3, Aspartate Amino Transf (AST/SGOT) 28, Alanine Aminotransferase (ALT/SGPT) 13, Alkaline Phosphatase 131H, Pro-B-Type Natriuretic Peptide 158H, Total Protein 6.2L, Albumin 3.7, Globulin 2.5, Albumin /Globulin Ratio 1.4 Height (Feet): 5 Height (Inches): 5.00 Weight (Pounds): 123 General Appearance: alert EENT: PERRL/EOMI Neck: supple Cardiovascular: normal rate Respiratory/Chest: lungs clear Abdomen: normal bowel sounds, non tender, soft Extremities: non-tender JULIUS SAHU Feb 09, 2017 08:01
[2017-02-09] MEDS: Amitiza 24mcg cap ORAL SCH ×2 (08:07→22:06)
[2017-02-09] MEDS: Sucralfate 1gm tab ORAL SCH ×4 (08:07→22:05)
[2017-02-09] MEDS: Metoprolol 25mg tab ORAL SCH ×2 (08:07→22:06)
[2017-02-09] MEDS: ceFAZolin sod 1 GM in NS 55 ML IVPB SCH ×3 (08:08→23:42)
--- NOTE | 2017-02-09 08:33 | General Progress Note ---
Assessment/Plan Problem List: (1) tachy (2) Dehydration ICD Codes: E86.0 - Dehydration SNOMED: 68600223 (3) Intractable nausea and vomiting ICD Codes: R11.10 - Intractable nausea and vomiting SNOMED: 399439947 (4) Cyclic vomiting syndrome ICD Codes: G43.A0 - Cyclical vomiting, not intractable SNOMED: 09792454 (5) GIB (gastrointestinal bleeding) ICD Codes: K92.2 - Gastrointestinal hemorrhage, unspecified SNOMED: 22767484 (6) CAD (coronary artery disease) ICD Codes: I25.10 - Atherosclerotic heart disease of [place] coronary artery without angina pectoris SNOMED: 96939483 (7) Hypertension ICD Codes: I10 - Essential (primary) hypertension SNOMED: 78216679 Status: stable, progressing Assessment/Plan cont ivf until pos better pain rx antiemtics replace k asnneded PPI rx improving slowly advance diet tylenol and fiorecet for SANTA Subjective ROS Limited/Unobtainable: No Constitutional: Reports: malaise, weakness HEENT: Reports: no symptoms Cardiovascular: Reports: no symptoms Respiratory: Reports: no symptoms Gastrointestinal/Abdominal: Reports: abdominal pain, nausea Genitourinary: Reports: no symptoms Neurologic/Psychiatric: Reports: headache Endocrine: Reports: no symptoms Hematologic/Lymphatic: Reports: no symptoms Allergies: Coded Allergies: ORANGE JUICE (Verified Allergy, Unknown, 06/25/14) All Systems: reviewed and negative except above Subjective no vomiting. only small amounts po. 1/2 muffin. severe headache. Objective Last 24 Hour Vital Signs Date Time Temp Pulse Resp B/P Pulse Ox O2 Delivery O2 Flow Rate FiO2 02/09/17 08:07 90 133/74 02/09/17 06:23 97.9 02/09/17 05:41 132/80 02/09/17 04:00 97.9 75 19 116/55 91 Room Air 02/09/17 00:00 98.1 78 19 130/77 96 Room Air 02/08/17 22:57 90 136/81 02/08/17 20:00 97.9 90 18 136/81 98 Room Air 02/08/17 17:54 133/85 02/08/17 16:00 98.2 75 18 133/85 99 Room Air 02/08/17 12:53 144/83 02/08/17 11:59 98.4 74 16 144/83 97 Room Air 02/08/17 09:02 76 158/87 Intake and Output 02/08/17 02/09/17 19:00 07:00 Intake Total 800 ml 775 ml Balance 800 ml 775 ml Intake Oral 800 ml 720 ml IV Total 55 ml # Voids 2 3 Laboratory Tests 02/09/17 05:00: White Blood Count 6.0, Red Blood Count 4.42, Hemoglobin 11.7L, Hematocrit 37.3, Mean Corpuscular Volume 84, Mean Corpuscular Hemoglobin 26.5L, Mean Corpuscular Hemoglobin Concent 31.4L, Red Cell Distribution Width 13.5, Platelet Count 241, Mean Platelet Volume 6.9, Neutrophils (%) (Auto) 57.6, Lymphocytes (%) (Auto) 28.3, Monocytes (%) (Auto) 8.2, Eosinophils (%) (Auto) 4.8H, Basophils (%) (Auto ) 1.1, Sodium Level 141, Potassium Level 3.7, Chloride Level 97L, Carbon Dioxide Level 28, Anion Gap 16H, Blood Urea Nitrogen 5L, Creatinine 0.7, Estimat Glomerular Filtration Rate > 60, Glucose Level 89, Calcium Level 9.1, Magnesium Level 1.8, Total Bilirubin 0.3, Aspartate Amino Transf (AST/SGOT) 28, Alanine Aminotransferase (ALT/SGPT) 13, Alkaline Phosphatase 131H, Pro-B-Type Natriuretic Peptide 158H, Total Protein 6.2L, Albumin 3.7, Globulin 2.5, Albumin /Globulin Ratio 1.4 Height (Feet): 5 Height (Inches): 5.00 Weight (Pounds): 123 Objective General Appearance: WD/WN, alert, mild distress Neck: supple Cardiovascular: normal rate, regular rhythm Respiratory/Chest: chest wall non-tender, lungs clear, normal breath sounds, no respiratory distress, no accessory muscle use Abdomen: normal bowel sounds, soft, no organomegaly, no mass, tender Edema: no edema noted Arm (L), no edema noted Arm (R), no edema noted Leg (L), no edema noted Leg (R), no edema noted Pedal (L), no edema noted Pedal (R), no edema noted Generalized LACY DUFFY Feb 09, 2017 08:33
[2017-02-09 12:00] VITALS: BP 119/81
[2017-02-09 16:56] VITALS: BP 135/75
[2017-02-09] MEDS ORDERED: NS 275ml ONE (16:58)
[2017-02-09] MEDS ORDERED: D5NS 1000ml IV ONE (16:58)
[2017-02-09] MEDS ORDERED: Tubing IV Secondary IV ONE (16:58)
[2017-02-09 20:39] VITALS: BP 146/87
--- NOTE | 2017-02-09 22:29 | Progress Note ---
DATE: 02/09/2017 CARDIOLOGY PROGRESS NOTE SUBJECTIVE: The patient continues to have poor appetite, severe headaches, and nausea, but no vomiting. No signs of bleeding noted. The patient had a panendoscopy notable for hiatal hernia and esophagitis with bleeding. The patient remains off anti-platelet therapy. OBJECTIVE: VITAL SIGNS: Blood pressure 133/74, heart rate 90, respiratory rate 19, and afebrile. HEENT: Conjunctivae pallor. NECK: Supple. LUNGS: Clear. CARDIAC: Regular rhythm and rate. Normal S1, S2. Fourth heart sound. ABDOMEN: Soft, slightly tender, and mildly distended. No guarding. EXTREMITIES: No edema. NEUROLOGIC: Nonfocal. LABORATORY RESULTS: Potassium 3.7, magnesium 1.8, and pro-natriuretic peptide 158. IMPRESSION: 1. Gastroparesis. 2. Vomiting. 3. Esophagitis. 4. Gastrointestinal bleeding. 5. Ischemic cardiomyopathy. 6. Stable angina. 7. History of multi-vessel coronary stenting. 8. Hypertensive heart disease. 9. Hyperlipidemia. 10. Hypokalemia. 11. Tension headache. 12. Chronic diastolic congestive heart failure. PLAN: 1. Intravenous fluids, narcotic analgesics, and antiemetics. 2. Continue to hold anti-platelet drugs. 3. We will need to address resumption with Gastrointestinal attending. 4. Continue topical nitrates and beta-blockade. 5. Follow up potassium and magnesium levels and replace as needed. Jamar Pabon M.D. DR: GERTRUDE JOB#: [id number] CC:
[2017-02-10] VITALS: BP 120/77
[2017-02-10 04:20] VITALS: BP 131/78
[2017-02-10] MEDS: Nitroglycerin 2% oint pkt TOPIC SCH ×3 (06:16→17:54)
[2017-02-10 06:57] LABS: ALANINE AMINOTRANSFERASE 27 U/L (3-33); ALBUMIN/GLOBULIN RATIO 1.3 (1.0-2.7); ANION GAP 13 (5-15); ASPARTATE AMINO TRANSFERASE 64 U/L (5-40); CALCIUM 9.3 mg/dL (8.6-10.2); CARBON DIOXIDE 30 mEQ/L (20-30); CHLORIDE 98 mEQ/L (98-107); CREATININE 0.7 mg/dL (0.5-0.9); GLOMERULAR FILTRATION RATE > 60 mL/min (>60); HEMOLYSIS 3; POTASSIUM 3.6 mEQ/L (3.4-4.9); SODIUM 141 mEQ/L (135-145); TOTAL PROTEIN 6.4 g/dL (6.6-8.7)
[2017-02-10] MEDS: ceFAZolin sod 1 GM in NS 55 ML IVPB SCH ×2 (08:07→16:03)
[2017-02-10] MEDS: Sucralfate 1gm tab ORAL SCH ×4 (08:08→20:42)
[2017-02-10] MEDS: Amitiza 24mcg cap ORAL SCH ×2 (08:08→20:41)
[2017-02-10] MEDS: Metoprolol 25mg tab ORAL SCH ×2 (08:08→20:42)
[2017-02-10 08:17] VITALS: BP 141/88
[2017-02-10 11:45] VITALS: BP 125/80
--- NOTE | 2017-02-10 11:59 | General Progress Note ---
Assessment/Plan Assessment/Plan Assessment - mildly elevated LFT, negative CT - h/o cycliic N/V syndrome - UGIB due to GERD Recommendation - push po - PPI - Elavil - OK for anti-platelet therapy from GI standpoint Subjective Allergies: Coded Allergies: ORANGE JUICE (Verified Allergy, Unknown, 06/25/14) Subjective Feels OK no vomiting able to tolerate solids no BM (off of Linzess) Objective Last 24 Hour Vital Signs Date Time Temp Pulse Resp B/P Pulse Ox O2 Delivery O2 Flow Rate FiO2 02/10/17 11:45 97.0 80 20 125/80 94 Room Air 02/10/17 08:17 97.9 92 20 141/88 99 Room Air 02/10/17 08:08 98 131/78 02/10/17 06:57 97.9 02/10/17 06:16 131/78 02/10/17 04:20 97.9 20 131/78 95 Room Air 02/10/17 00:00 98.1 20 120/77 94 Room Air 02/09/17 22:06 98 146/87 02/09/17 20:39 97.0 18 146/87 96 Room Air 02/09/17 18:06 135/75 02/09/17 16:56 98.2 98 18 135/75 98 Room Air 02/09/17 12:38 119/81 02/09/17 12:00 98.2 88 16 119/81 97 Room Air Intake and Output 02/09/17 02/10/17 19:00 07:00 Intake Total 590 ml 655 ml Balance 590 ml 655 ml Intake Oral 480 ml 600 ml IV Total 110 ml 55 ml # Voids 1 3 Laboratory Tests 02/10/17 05:00: Sodium Level 141, Potassium Level 3.6, Chloride Level 98, Carbon Dioxide Level 30, Anion Gap 13, Blood Urea Nitrogen 6L, Creatinine 0.7, Estimat Glomerular Filtration Rate > 60, Glucose Level 102, Calcium Level 9.3, Total Bilirubin 0.3 , Aspartate Amino Transf (AST/SGOT) 64H, Alanine Aminotransferase (ALT/SGPT) 27 , Alkaline Phosphatase 149H, Total Protein 6.4L, Albumin 3.7, Globulin 2.7, Albumin/Globulin Ratio 1.3 Height (Feet): 5 Height (Inches): 5.00 Weight (Pounds): 123 Objective WDWN AA woman NCAT supple CTA RRR soft ND NT no edema non focal TD QUINN Feb 10, 2017 11:59
--- NOTE | 2017-02-10 13:36 | General Progress Note ---
Assessment/Plan Problem List: (1) tachy (2) Dehydration ICD Codes: E86.0 - Dehydration SNOMED: 74370585 (3) Intractable nausea and vomiting ICD Codes: R11.10 - Intractable nausea and vomiting SNOMED: 651819961 (4) Cyclic vomiting syndrome ICD Codes: G43.A0 - Cyclical vomiting, not intractable SNOMED: 66477669 (5) GIB (gastrointestinal bleeding) ICD Codes: K92.2 - Gastrointestinal hemorrhage, unspecified SNOMED: 41336851 (6) CAD (coronary artery disease) ICD Codes: I25.10 - Atherosclerotic heart disease of [place] coronary artery without angina pectoris SNOMED: 35791771 (7) Hypertension ICD Codes: I10 - Essential (primary) hypertension SNOMED: 21122132 Status: stable, progressing Assessment/Plan cont ivf until pos better pain rx antiemtics ?laxatives dc topical nitrates- dc planning today or tomorrow if able to have bm Subjective ROS Limited/Unobtainable: No Constitutional: Reports: malaise, weakness HEENT: Reports: other - headache Cardiovascular: Reports: no symptoms Respiratory: Reports: no symptoms Gastrointestinal/Abdominal: Reports: constipated Neurologic/Psychiatric: Reports: headache Endocrine: Reports: no symptoms Hematologic/Lymphatic: Reports: no symptoms Allergies: Coded Allergies: ORANGE JUICE (Verified Allergy, Unknown, 06/25/14) All Systems: reviewed and negative except above Subjective no vomiting. still with severe headaches. c/o constipation. Objective Last 24 Hour Vital Signs Date Time Temp Pulse Resp B/P Pulse Ox O2 Delivery O2 Flow Rate FiO2 02/10/17 12:11 125/80 02/10/17 11:45 97.0 80 20 125/80 94 Room Air 02/10/17 11:12 97.0 02/10/17 08:17 97.9 92 20 141/88 99 Room Air 02/10/17 08:08 98 131/78 02/10/17 06:16 131/78 02/10/17 04:20 97.9 20 131/78 95 Room Air 02/10/17 00:00 98.1 20 120/77 94 Room Air 02/09/17 22:06 98 146/87 02/09/17 20:39 97.0 18 146/87 96 Room Air 02/09/17 18:06 135/75 02/09/17 16:56 98.2 98 18 135/75 98 Room Air Intake and Output 02/09/17 02/10/17 19:00 07:00 Intake Total 590 ml 655 ml Balance 590 ml 655 ml Intake Oral 480 ml 600 ml IV Total 110 ml 55 ml # Voids 1 3 Laboratory Tests 02/10/17 05:00: Sodium Level 141, Potassium Level 3.6, Chloride Level 98, Carbon Dioxide Level 30, Anion Gap 13, Blood Urea Nitrogen 6L, Creatinine 0.7, Estimat Glomerular Filtration Rate > 60, Glucose Level 102, Calcium Level 9.3, Total Bilirubin 0.3 , Aspartate Amino Transf (AST/SGOT) 64H, Alanine Aminotransferase (ALT/SGPT) 27 , Alkaline Phosphatase 149H, Total Protein 6.4L, Albumin 3.7, Globulin 2.7, Albumin/Globulin Ratio 1.3 Height (Feet): 5 Height (Inches): 5.00 Weight (Pounds): 123 Objective General Appearance: WD/WN, alert, mild distress Neck: supple Cardiovascular: normal rate, regular rhythm Respiratory/Chest: chest wall non-tender, lungs clear, normal breath sounds, no respiratory distress, no accessory muscle use Abdomen: normal bowel sounds, soft, no organomegaly, no mass, tender Edema: no edema noted Arm (L), no edema noted Arm (R), no edema noted Leg (L), no edema noted Leg (R), no edema noted Pedal (L), no edema noted Pedal (R), no edema noted Generalized LACY DUFFY Feb 10, 2017 13:36
[2017-02-10 15:55] VITALS: BP 148/99
[2017-02-10 20:00] VITALS: BP 138/101
[2017-02-11] MEDS: ceFAZolin sod 1 GM in NS 55 ML IVPB SCH ×2 (00:10→08:46)
[2017-02-11 00:19] VITALS: BP 130/99
[2017-02-11 04:00] VITALS: BP 131/93
[2017-02-11] MEDS: Nitroglycerin 2% oint pkt TOPIC SCH (06:00)
[2017-02-11 08:25] VITALS: BP 126/71
[2017-02-11 08:44] VITALS: BP 126/71
[2017-02-11] MEDS: Metoprolol 25mg tab ORAL SCH (08:44)
[2017-02-11] MEDS: Sucralfate 1gm tab ORAL SCH (08:44)
[2017-02-11] MEDS: Amitiza 24mcg cap ORAL SCH (08:44)
[2017-02-11] MEDS ORDERED: NS 275ml ONE (13:59)
--- NOTE | 2017-02-12 01:48 | Progress Note ---
DATE: 02/11/2017 CARDIOLOGY PROGRESS NOTE SUBJECTIVE: The patient has no chest pain. No shortness of breath. Headache improved of nitrates. She has not had any nausea, vomiting, or bleeding. Appetite is improving. She is tolerating some diet. OBJECTIVE: GENERAL: Afebrile. VITAL SIGNS: Blood pressure 131/93, pulse 96, and respirations 16. NECK: Supple. LUNGS: Clear. CARDIAC: Regular rhythm and rate. Normal S1 and S2 with a fourth heart sound. ABDOMEN: Soft. EXTREMITIES: No edema. IMPRESSION: 1. Gastrointestinal bleeding due to esophagitis has recovered. 2. Hiatal hernia, improved. 3. Ischemic cardiomyopathy with stable angina. 4. History of coronary stent. PLAN: 1. Resume anti-platelet therapy. 2. Maintain current gastrointestinal workup. 3. Observe for signs of recurring blood loss. 4. Outpatient followup. Jamar Pabon M.D. DR: CARLO JOB#: [id number] CC:
--- NOTE | 2017-02-12 05:08 | Progress Note ---
DATE: 02/10/2017 CARDIOLOGY PROGRESS NOTE Late entry for 02/10/2017. SUBJECTIVE: The patient was seen and evaluated. No nausea or vomiting. No chest pain. Appetite still poor, but improved. OBJECTIVE: VITAL SIGNS: Blood pressure 125/80, pulse 80, and respirations 20. NECK: Supple. LUNGS: Clear. CARDIAC: Regular rate. Normal S1 and S2. ABDOMEN: Soft. No focal tenderness. EXTREMITIES: No edema. NEUROLOGICAL: The patient has had a worsening headache noted. LABORATORY DATA: Noted from 02/09/2017, potassium today 3.6, BUN 6, creatinine 0.7, and albumin 3.7. IMPRESSION: 1. Gastrointestinal bleed. 2. Esophagitis. 3. Hiatal hernia. 4. Ischemic cardiomyopathy. 5. Nitrate headache. PLAN: Discontinue nitrates. Continue to hold antiplatelet therapy. Maintain beta blockade where they assess safety for resumption of nitrates and final resumption of anti-platelet drugs discussion with GI attending. Jamar Pabon M.D. DR: MICAELA JOB#: [id number] CC:
--- NOTE | 2017-02-13 16:18 | Discharge Summary ---
Discharge Summary Hospital Course Date of Admission Feb 05, 2017 at 18:08 Date of Discharge Feb 11, 2017 at 14:00 Admitting Diagnosis HPI Rena Coy is a 66 year old female who was admitted on Feb 05, 2017 at 18: 08 for Intractable Vomiting Hospital Course [id number] Discharge Discharge Disposition Patient was discharged to Home (01) Discharge Diagnoses: Ingrid Desai NP Feb 13, 2017 16:18
--- NOTE | 2017-02-14 02:08 | Discharge Summary 2 SIG ---
DATE OF ADMISSION: 02/05/2017 DATE OF DISCHARGE: 02/11/2017 CONSULTANTS: 1. Kim Varghese M.D. 2. Jamar Pabon M.D. BRIEF HOSPITAL COURSE: The patient is a 66-year-old female with history of ischemic cardiomyopathy, hypertension, fibromyalgia, history of degenerative disk disease and cervical radiculopathy. She had episodes of cyclic vomiting for the last several days and had intractable nausea and vomiting for over 20 episodes a day. She has been unable to tolerate fluids or orals and has become progressively weak. She had persistent nausea, vomiting and dehydration with several episodes of coffee-ground bloody emesis. The patient is on antiplatelet therapy for coronary artery disease. She was admitted for further workup and was initially placed on NPO and given IV proton pump inhibitors and p.r.n. antiemetics therapy. CAT scan of the abdomen showed equivocal mild distal esophageal wall thickening. Otherwise, no acute definite pathology. She had a PICC line inserted on the left arm. Dr. Varghese was consulted. She was given a trial of Elavil for cyclic nausea and vomiting syndrome and underwent upper GI endoscopy on 02/07/2017 with findings of 1.3 cm hiatal hernia and extensive gastroesophageal reflux disease with reflux related erosions in the lower 1/3 of the esophagus with no evidence of inflammation or other abnormalities. Diet was advanced. She was given Carafate and Protonix b.i.d. Advised reflux measures. Dr. Pabon was also consulted. Antiplatelet therapy was placed on hold. Electrolytes were repleted. GI bleeding due to esophagitis was recovered. The patient was tolerating diet. Antiplatelet therapy was continued to be hold. Nitrates were discontinued. The patient was eventually discharged to home. FINAL DIAGNOSES: 1. Upper gastrointestinal bleed due to esophagitis. 2. Hiatal hernia. 3. Ischemic cardiomyopathy. 4. Nitrate headache. 5. Hypertension. 6. Coronary artery disease. 7. Cyclic vomiting syndrome. 8. Dehydration. 9. Status post esophagogastroduodenoscopy. 10. Gastroesophageal reflux disease. Sudhakar Conti M.D. I have been assigned to dictate discharge summary on this account and I was not involved in the patient's management. Ingrid Desai N.P. DR: WICHO JOB#: [id number] CC: RANDY
== END 2017-02-11 14:00 | disposition home or self-care (01) | DRG 392 ==
LOC: 4W 18:08 → 3E 02-10 23:43
DX: K21.0 Gastro-esophageal reflux disease with esophagitis (principal); I11.9 Hypertensive heart disease without heart failure; K22.8 Other specified diseases of esophagus; G43.A0 Cyclical vomiting, in migraine, not intractable; K44.9 Diaphragmatic hernia without obstruction or gangrene; I25.5 Ischemic cardiomyopathy; I25.2 Old myocardial infarction; M79.7 Fibromyalgia; E86.0 Dehydration; Z95.5 Presence of coronary angioplasty implant and graft; I25.118 Atherosclerotic heart disease of native coronary artery with other forms of angina pectoris; M50.10 Cervical disc disorder with radiculopathy, unspecified cervical region; E86.1 Hypovolemia; R00.0 Tachycardia, unspecified; G44.40 Drug-induced headache, not elsewhere classified, not intractable; T46.3X5A Adverse effect of coronary vasodilators, initial encounter; Y92.239 Unspecified place in hospital as the place of occurrence of the external cause
CPT/HCPCS: 36415; 36569; 74176; 76937; 80048; 80053; 81001; 83735; 83880; 84484; 85025; 87086; 87181; 93005; 94003; 94150; J2405; J2765; J8499

== ENCOUNTER → 2017-04-16 | Outpatient (CLI) | payer MEDICARE, MEDICAID ==
[~2017-04-16] MED LIST changes: +ATORVASTATIN CA10 MG; +BETHANECHOL CHL10 MG; +METOPROLOL TART25 MG; +OXYCODONE-ACET1 EAC5; +RANITIDINE HCL150 M2; +TOFRANIL50 MG ORAL
--- NOTE | 2017-04-16 15:56 | Diagnostic Imaging Report ---
Indication: Abdominal pain Technique: Continuous helical transaxial imaging of the abdomen and pelvis was obtained from the lung bases to the pubic symphysis. No intravenous contrast was administered. Coronal 2-D reformats were also obtained. Total Dose length Product (DLP): [address] Dose Index Volume (CTDIvol): 14 mGy Comparison: 02/06/2017 Findings: The lung bases are clear. There is a small hiatal hernia. There is a tiny hypodensity in the right lobe of the liver too small to characterize. Arterial vascular calcifications are present. Suspect small stones or sludge in the gallbladder. Diverticula noted throughout the colon. In the cecum along the lateral wall there is a suggestion of wall thickening. There is some pericolonic fluid and soft tissue stranding. Findings suspicious for acute diverticulitis. Please correlate clinically. Most of the diverticula of involved sigmoid colon and descending colon but no diverticulitis seen in that area. There is no evidence of abscess. The appendix is seen and appears normal. The uterus is present. Urinary bladder is unremarkable. There is no nephrolithiasis or hydronephrosis. Impression: Suspected acute diverticulitis involving the lateral wall of the cecum. No abscess identified. Normal appendix Atherosclerotic vascular disease Sludge versus small stones in the gallbladder. Small hiatal hernia Tiny low-density focus in the liver too small to characterize. The CT scanner at [facility] is accredited by the [employer] and the scans are performed using dose optimization techniques as appropriate to a performed exam including Automatic Exposure control.
== END | disposition home or self-care (01) ==
LOC: CAT 12:25
DX: R10.31 Right lower quadrant pain (principal); I70.90 Unspecified atherosclerosis; K44.9 Diaphragmatic hernia without obstruction or gangrene
CPT/HCPCS: 74176

== ENCOUNTER 2018-04-13 14:48 | Inpatient (IN) | payer MEDICARE, MEDICAID ==
[~2018-04-13] VITALS: Ht 162.6 cm; Wt 65.6 kg
[2018-04-13 16:00] VITALS: BP 116/79
[2018-04-13] MEDS ORDERED: LINZESS145 MCG PO (16:06)
[2018-04-13] MEDS ORDERED: Morphine Sulfate 4mg/ml Inj IM PRN (17:30)
[2018-04-13] MEDS: Morphine Sulfate 4mg/ml Inj IVP PRN (20:09)
[2018-04-13 21:00] VITALS: BP 139/90
[2018-04-13] MEDS: Zolpidem 5mg tab ORAL PRN (22:54)
[2018-04-13] MEDS: Metoprolol 25mg tab ORAL SCH (22:54)
[2018-04-14] MEDS: Morphine Sulfate 4mg/ml Inj IVP PRN ×6 (02:13→22:33)
[2018-04-14 07:04] LABS: BILIRUBIN, URINE NEGATIVE (NEGATIVE); GLUCOSE, URINE (UA) NEGATIVE (NEGATIVE); KETONES,URINE 1+ (NEGATIVE); LEUKOCYTE ESTERASE ,URINE 2+ (NEGATIVE); NITRITE,URINE NEGATIVE (NEGATIVE); PH,URINE 5 (4.5-8.0); PROTEIN,URINE 2+ (NEGATIVE); UROBILINOGEN,URINE NORMAL MG/DL (0.0-1.0)
[2018-04-14 07:32] LABS: APPEARANCE,URINE SLIGHTLY CLOUDY; COLOR,URINE YELLOW
[2018-04-14 08:00] VITALS: BP 129/85
[2018-04-14] MEDS: Metoprolol 25mg tab ORAL SCH ×2 (09:39→21:00)
[2018-04-14] MEDS: Aspirin Baby 81mg ORAL SCH (09:39)
[2018-04-14] MEDS ORDERED: Lidocaine 1% Plain 30 ml INJ ONE (10:15)
[2018-04-14] MEDS ORDERED: Heparin 2000 units/Ns 1000ml INJ ONE (10:15)
[2018-04-14 12:00] VITALS: BP 111/76
--- NOTE | 2018-04-14 12:23 | Diagnostic Imaging Report ---
Indications: Needs long-term IV access Technique: Ultrasound confirms patent compressible left basilic vein. Total sterile technique, including sterile probe cover and sterile gel, hat, mask,, sterile gown, large sterile drape, and preparation with 2% chlorhexidine utilized. Local anesthesia with 1% lidocaine. Under real-time ultrasound guidance, puncture basilic vein using 21-gauge needle, documented and archived, passage 0.018 guidewire under direct fluoroscopy, which was used to determine appropriate catheter length, exchange for 5 Portuguese peel-away sheath. 5 Portuguese Bard dual-lumen power PICC cut to 40 cm. It was inserted through the peel-away sheath. Peel-away sheath and guidewire removed. Catheter fixed to the skin. Both catheter ports aspirated and flushed. Patient tolerated procedure well, without immediate complication. Digital radiograph documents satisfactory catheter tip position, at the cavoatrial junction. Total fluoroscopy time 0.4 minutes. Total dose area product 7.4 dGycm2 Impression: Successful placement of left arm PICC under sonographic and fluoroscopic guidance, as described above.
[2018-04-14 16:00] VITALS: BP 108/64
--- NOTE | 2018-04-14 17:30 | History and Physical Report ---
DATE OF ADMISSION: 04/13/2018 CHIEF COMPLAINT: Intractable nausea and cyclic vomiting. HISTORY OF PRESENT ILLNESS: The patient is an unfortunate 67-year-old female. She has a history of hypertensive heart disease, degenerative disc disease, and cervical radiculopathy. She has a history of ischemic cardiomyopathy status post stent. She has a history of cyclic vomiting. She presented with complaints of intractable nausea and vomiting for several days. She initially presented to an outside emergency room. At that time, she received IV pain medications, antiemetics, and IV fluids and felt improved and went home, but she had recurrent nausea and vomiting. After her failure to respond to outpatient therapy, she is now admitted for further evaluation and care. PAST MEDICAL HISTORY: As above. PAST SURGICAL HISTORY: History of multiple back and neck surgeries. CURRENT MEDICATIONS: Reconciled and reviewed. ALLERGIES: [place] juice. FAMILY HISTORY: Noncontributory. SOCIAL HISTORY: Negative for tobacco, ethanol, or drugs. REVIEW OF SYSTEMS: GENERAL: No fevers or chills. Positive malaise and weakness. HEENT: No headaches or visual changes. CARDIOPULMONARY: No chest pain. No shortness of breath. GASTROINTESTINAL: Positive nausea and vomiting. Positive abdominal pain. No diarrhea. No melena. No hematemesis. GENITOURINARY: No urgency or frequency. MUSCULOSKELETAL: No joint pain or swelling. NEUROLOGIC: No evidence of seizures. PHYSICAL EXAMINATION: VITAL SIGNS: Temperature 99, pulse 98, respirations 20, and blood pressure 139/90. GENERAL: The patient is well-developed, and in no apparent distress. She appears acutely ill. NECK: Supple. HEART: Regular rate and rhythm. LUNGS: Clear. ABDOMEN: Soft, nontender, and nondistended. EXTREMITIES: Without clubbing or cyanosis. LABORATORY DATA: Pending. ASSESSMENT: This is a pleasant female, admitted with complaints of intractable nausea and vomiting, suspect secondary to exacerbation of her underlying cyclic vomiting. She has a history of hypertension and ischemic cardiomyopathy. PLAN: Clear liquid diet. Advance as tolerated. IV pain medications. IV antiemetics. Continue pain medications and antiemetics. We will follow up pending laboratories and KUB. Sudhakar Conti M.D. DR: DEREK JOB#: [id number] CC:
[2018-04-14 20:00] VITALS: BP 98/60
[2018-04-14 21:48] VITALS: BP 98/60
[2018-04-14] MEDS: Dyna-Hex 2% Top Sol 2oz TOPIC SCH (21:50)
[2018-04-14 22:35] VITALS: BP 108/66
[2018-04-14] MEDS: Zolpidem 5mg tab ORAL PRN (23:19)
[2018-04-15] VITALS: BP 99/60
--- NOTE | 2018-04-15 03:15 | Consultation ---
DATE OF CONSULTATION: 04/13/2018 CARDIOLOGY CONSULTATION CONSULTING PHYSICIAN: Jamar Pabon M.D. REQUESTING PHYSICIAN: Sudhakar Conti M.D. REASON FOR CONSULTATION: Nausea, vomiting, and dehydration in the setting of ischemic cardiomyopathy. HISTORY OF PRESENT ILLNESS: This is a 67-year-old female with a known history of ischemic and hypertensive cardiomyopathy, who also has a known history of cyclic vomiting. She presented to the hospital after several days of recurring vomiting episodes, worsening nausea, and inability to tolerate any oral intake. She could not arrange for outpatient intravenous fluid hydration due to insurance restrictions for payment of the intravenous fluids. She was brought to the hospital for hydration and intravenous antiemetic therapy. Concern has been raised over her underlying cardiomyopathy and I have been asked to assist with care. The patient has not noted any chest pain, but has had some palpitations. PAST MEDICAL HISTORY: 1. Coronary artery disease. 2. History of coronary stenting. 3. History of myocardial infarction. 4. Hypertension. 5. Hyperlipidemia. 6. Cervical radiculopathy. 7. Degenerative disk disease. 8. Fibromyalgia. 9. Cyclic vomiting. 10. Prior laminectomies. MEDICATIONS PRIOR TO ADMISSION: Reviewed and reconciled. ALLERGIES: [place] juice. FAMILY HISTORY: Hypertension and chronic kidney disease in her mother. SOCIAL HISTORY: Nonsmoker. No alcohol or substance abuse. REVIEW OF SYSTEMS: She has class 2 angina. An outpatient echocardiogram in the last three months revealed normal ejection fraction with mild concentric hypertrophy. Her most recent stress echo revealed no inducible ischemia. There is no history of diabetes or thyroid impairment. There is no history of asthma or blood clots in the legs. She is on anti-lipid drugs as well as aspirin. She had been on Plavix as well up until about a year ago. PHYSICAL EXAMINATION: VITAL SIGNS: Blood pressure 116/79, pulse 94, respirations 20, and afebrile. Room air oxygen saturation 96%. HEENT: Normocephalic and atraumatic. Conjunctivae pink. Arcus senilis. Sclerae are anicteric. Oropharynx clear. Mucous membranes dry. NECK: Supple. Jugular venous pressure normal. Carotid upstrokes without delay. LUNGS: Clear. No chest wall deformity or masses. No breast masses. CARDIAC: Regular rhythm and rate. Normal S1, S2 with a fourth heart sound. ABDOMEN: Soft. Mild diffuse tenderness. No guarding or rebound. No masses. EXTREMITIES: No clubbing, cyanosis, or edema. Capillary refill is adequate. NEUROLOGIC: Nonfocal. IMPRESSION: 1. Acute exacerbation of cyclic vomiting syndrome. 2. Hypovolemia and dehydration. 3. Ischemic heart disease with stable angina. 4. History of hyperlipidemia. 5. History of hypertension. PLAN: 1. Peripheral intravenous access. If unobtainable due to her poor venous access, a PICC line will be considered. 2. Intravenous fluid hydration. 3. Continue anti-platelet therapy. 4. Hold statin drugs. 5. Antiemetics. 6. Continue beta-liz. 7. Hold parameters for antihypertensives based on clinical parameters. 8. DVT prophylaxis. Jamar Pabon M.D. DR: GUNNAR JOB#: [id number] CC:
--- NOTE | 2018-04-15 03:45 | Progress Note ---
DATE: 04/14/2018 CARDIOLOGY PROGRESS NOTE SUBJECTIVE: The patient has nausea and less vomiting. No chest pain. No shortness of breath. Intravenous access has been difficult. Laboratories have not been drawn as a result due to poor peripheral access sites and hypovolemia. OBJECTIVE: VITAL SIGNS: Blood pressure 98/60, pulse 78, and respiratory rate 18. HEENT: Conjunctivae are pink. Sclerae are anicteric. Oropharynx clear. NECK: Supple. LUNGS: Clear. CARDIAC: Regular. Normal S1, S2 with a fourth heart sound. ABDOMEN: Soft. No focal tenderness. Mild diffuse tenderness. No guarding or rebound. No edema. IMPRESSION: 1. Intractable vomiting. 2. Dehydration. 3. Hypovolemia. 4. Ischemic cardiomyopathy. 5. Poor peripheral intravenous access. 6. History of coronary stent. PLAN: 1. Central intravenous access with PICC line. 2. Intravenous fluid hydration. 3. Check chemistry panel. 4. Antiemetics. 5. Hold statin drugs. 6. Continue with anti-platelet therapy. 7. Hold beta-liz for low range blood pressure. 8. May need fluid challenge if blood pressure parameters fail to improve. Jamar Pabon M.D. DR: GERTRUDE JOB#: [id number] CC:
[2018-04-15 04:52] VITALS: BP 137/77
[2018-04-15] MEDS: Morphine Sulfate 4mg/ml Inj IVP PRN ×5 (04:54→22:09)
[2018-04-15 07:11] LABS: BASOPHILS % (AUTO) 0.9 % (0.0-2.0); EOSINOPHILS % (AUTO) 3.5 % (0.0-3.0); HEMATOCRIT 34.2 % (37.0-47.0); HEMOGLOBIN 11.1 G/DL (12.0-16.0); LYMPHOCYTES % (AUTO) 33.5 % (20.0-45.0); MEAN CORPUSCULAR VOLUME 82 FL (80-99); MONOCYTES % (AUTO) 9.5 % (1.0-10.0); NEUTROPHILS % (AUTO) 52.6 % (45.0-75.0); PLATELET COUNT 304 K/UL (150-450); RED BLOOD COUNT 4.19 M/UL (4.20-5.40); RED CELL DISTRIBUTION WIDTH 12.7 % (11.6-14.8); WHITE BLOOD COUNT 5.6 K/UL (4.8-10.8)
--- NOTE | 2018-04-15 07:51 | General Progress Note ---
Assessment/Plan Problem List: (1) Dehydration ICD Codes: E86.0 - Dehydration SNOMED: 69942343 (2) Hypertensive urgency ICD Codes: I10 - Hypertensive urgency SNOMED: 957840039 (3) Cyclical vomiting associated with migraine ICD Codes: G43.A0 - Cyclical vomiting associated with migraine SNOMED: 027756878 (4) CAD (coronary artery disease) ICD Codes: I25.10 - Atherosclerotic heart disease of [place] coronary artery without angina pectoris SNOMED: 50219173 (5) Hypertension ICD Codes: I10 - Essential (primary) hypertension SNOMED: 03447525 (6) Vomiting ICD Codes: R11.10 - Vomiting, unspecified SNOMED: 976372140 Status: stable, progressing Assessment/Plan ivf antiemetics pain rx try to advance diet kub ct hips antiplt rx PPI Subjective ROS Limited/Unobtainable: No Constitutional: Reports: malaise, weakness HEENT: Reports: no symptoms Cardiovascular: Reports: no symptoms Respiratory: Reports: no symptoms Gastrointestinal/Abdominal: Reports: abdominal pain, poor appetite, vomiting Genitourinary: Reports: no symptoms Neurologic/Psychiatric: Reports: no symptoms Endocrine: Reports: no symptoms Hematologic/Lymphatic: Reports: no symptoms Allergies: Coded Allergies: ORANGE JUICE (Verified Allergy, Unknown, 06/25/14) All Systems: reviewed and negative except above Subjective still with pain. nausea. poor pos. c/o severe hip pain Objective Last 24 Hour Vital Signs Date Time Temp Pulse Resp B/P (MAP) Pulse Ox O2 Delivery O2 Flow Rate FiO2 04/15/18 04:52 137/77 04/15/18 00:00 98.0 80 18 99/60 97 Room Air 98.0 04/14/18 22:35 82 108/66 04/14/18 21:48 98.2 78 18 98/60 95 Room Air 98.2 04/14/18 21:00 78 98/60 04/14/18 20:00 98.2 78 18 98/60 95 98.2 04/14/18 16:00 98.5 76 17 108/64 100 Room Air 98.5 04/14/18 12:00 98.4 80 19 111/76 100 Room Air 98.4 04/14/18 09:39 104 139/88 04/14/18 08:00 98.8 83 17 129/85 96 Room Air 98.8 Intake and Output 04/14/18 04/15/18 19:00 07:00 Intake Total 1375 ml 1375 ml Balance 1375 ml 1375 ml IV Total 1375 ml 1375 ml # Voids 3 2 Laboratory Tests 04/15/18 06:30: White Blood Count 5.6, Red Blood Count 4.19L, Hemoglobin 11.1L, Hematocrit 34.2L , Mean Corpuscular Volume 82, Mean Corpuscular Hemoglobin 26.5L, Mean Corpuscular Hemoglobin Concent 32.4, Red Cell Distribution Width 12.7, Platelet Count 304, Mean Platelet Volume 5.7L, Neutrophils (%) (Auto) 52.6, Lymphocytes ( %) (Auto) 33.5, Monocytes (%) (Auto) 9.5, Eosinophils (%) (Auto) 3.5H, Basophils (%) (Auto) 0.9 Height (Feet): 5 Height (Inches): 4.00 Weight (Pounds): 144 General Appearance: WD/WN, lethargic Neck: supple Cardiovascular: regular rhythm Respiratory/Chest: chest wall non-tender, lungs clear, normal breath sounds Abdomen: normal bowel sounds, no organomegaly, hyperactive bowel sounds, tender Edema: no edema noted Arm (L), no edema noted Arm (R), no edema noted Leg (L), no edema noted Leg (R), no edema noted Pedal (L), no edema noted Pedal (R), no edema noted Generalized Sudhakar oCnti MD Apr 15, 2018 07:51
[2018-04-15 08:00] VITALS: BP 103/64
[2018-04-15] MEDS: Metoprolol 25mg tab ORAL SCH ×2 (09:00→20:43)
[2018-04-15] MEDS: Aspirin Baby 81mg ORAL SCH (09:50)
--- NOTE | 2018-04-15 09:52 | Diagnostic Imaging Report ---
Indication: Bilateral hip pain Technique: Noncontrast spiral acquisitions obtained through the pelvis. Multiplanar reconstructions generated. Total dose length product 411.41 mGycm. CTDIvol(s) 14.54 mGy. Dose reduction achieved using automated exposure control Comparison: Abdomen pelvis CT dated 04/16/2017 Findings: No acute fractures. No dislocations. The bilateral hip joint spaces are preserved, and there are no findings of arthrosis or arthritis. There are mild degenerative proliferative changes of the lumbosacral junction. There is minimal vacuum formation within the bilateral sacroiliac joints. There appears to be transitional lumbosacral anatomy. There are numerous injection granulomata within the bilateral hips and buttocks. No significant soft tissue contusion. There is extensive colonic diverticulosis. No evidence of diverticulitis. The appendix is visualized, unremarkable. The remaining visualized pelvic viscera appear unremarkable. No unusual fluid collections. Previously reported pericecal inflammatory changes are no longer evident Impression: No significant osseous or articular abnormality of the pelvis or either hip to assess etiology of stated clinical history of bilateral hip pain. If clinically indicated, consider MRI to rule out internal derangement Mild degenerative changes of the lumbosacral junction and bilateral sacroiliac joints. Colonic diverticulosis The CT scanner at [facility] is accredited by the [employer] and the scans are performed using protocols designed to limit radiation exposure to as low as reasonably achievable to attain images of sufficient resolution adequate for diagnostic evaluation.
[2018-04-15 10:56] LABS: ALANINE AMINOTRANSFERASE 12 U/L (12-78); ALBUMIN 2.8 G/DL (3.4-5.0); ALBUMIN/GLOBULIN RATIO 0.8 (1.0-2.7); ALKALINE PHOSPHATASE 96 U/L (46-116); ANION GAP 9 mmol/L (5-15); ASPARTATE AMINO TRANSFERASE 15 U/L (15-37); BILIRUBIN,TOTAL 0.3 MG/DL (0.2-1.0); BLOOD UREA NITROGEN 9 mg/dL (7-18); CALCIUM 8.1 MG/DL (8.5-10.1); CARBON DIOXIDE 26 MMOL/L (21-32); CHLORIDE 106 MMOL/L (98-107); CREATININE 0.6 MG/DL (0.55-1.30); POTASSIUM 3.4 MMOL/L (3.5-5.1); SODIUM 141 MMOL/L (136-145)
[2018-04-15 12:00] VITALS: BP 124/66
--- NOTE | 2018-04-15 12:03 | Diagnostic Imaging Report ---
Indication: Nausea Technique: Supine view of the abdomen Comparison: 03/02/2015 Findings: Gas pattern is unremarkable. No unusual masses. There are extensive bilateral hip and buttock injection granulomata noted. Impression: No acute process
[2018-04-15 16:00] VITALS: BP 141/77
[2018-04-15 20:00] VITALS: BP 118/89
[2018-04-15] MEDS: Dyna-Hex 2% Top Sol 2oz TOPIC SCH (20:42)
[2018-04-15] MEDS: Zolpidem 5mg tab ORAL PRN (22:50)
[2018-04-16] VITALS: BP 115/80
[2018-04-16] MEDS: KCL IV SCH ×5 (02:24→22:30)
[2018-04-16] MEDS: NS IV SCH ×5 (02:24→22:30)
[2018-04-16] MEDS: Morphine Sulfate 4mg/ml Inj IVP PRN ×5 (02:25→20:09)
--- NOTE | 2018-04-16 02:30 | Progress Note ---
DATE: 04/15/2018 CARDIOLOGY PROGRESS NOTE SUBJECTIVE: No vomiting today. Still nauseated. Just started a diet and had a small amount of salad. A PICC line was placed yesterday. OBJECTIVE: VITAL SIGNS: Blood pressure 124/66, pulse 92, respiratory rate 18, afebrile. LUNGS: Clear. CARDIAC: Regular. Normal S1, S2 with a fourth heart sound. ABDOMEN: Soft, diffusely tender, but no guarding. EXTREMITIES: No edema. SKIN: Left upper extremity PICC site clean and dry. LABORATORY DATA: Potassium 3.4. Albumin 2.8. White count 5.6, hemoglobin 11.1. IMPRESSION: 1. Cyclic vomiting. 2. Dehydration. 3. Hypovolemia. 4. Hypokalemia. 5. Moderate protein-calorie malnutrition. 6. Ischemic cardiomyopathy. 7. History of coronary stents. 8. Anemia. PLAN: 1. Follow up imaging studies. 2. Continue IV fluid hydration. 3. Replace potassium. 4. Pain control. 5. Maintain central access. 6. Continue beta-liz and anti-platelet therapy. 7. Hold statin drug for now. Jamar Pabon M.D. DR: Herbert JOB#: [id number] CC:
[2018-04-16 04:00] VITALS: BP 120/69
[2018-04-16 07:27] LABS: ANION GAP 8 mmol/L (5-15); BLOOD UREA NITROGEN 5 mg/dL (7-18); CALCIUM 7.9 MG/DL (8.5-10.1); CARBON DIOXIDE 25 MMOL/L (21-32); CHLORIDE 109 MMOL/L (98-107); CREATININE 0.6 MG/DL (0.55-1.30); POTASSIUM 3.6 MMOL/L (3.5-5.1); SODIUM 142 MMOL/L (136-145)
[2018-04-16 07:32] LABS: % IRON SATURATION 14 % (15-50); IRON 35 ug/dL (50-175); TOTAL IRON BINDING CAPACITY 248 ug/dL (250-450)
[2018-04-16 08:00] VITALS: BP 148/89
--- NOTE | 2018-04-16 08:19 | General Progress Note ---
Assessment/Plan Problem List: (1) Dehydration ICD Codes: E86.0 - Dehydration SNOMED: 19081452 (2) Hypertensive urgency ICD Codes: I10 - Hypertensive urgency SNOMED: 928794132 (3) Cyclical vomiting associated with migraine ICD Codes: G43.A0 - Cyclical vomiting associated with migraine SNOMED: 216164391 (4) CAD (coronary artery disease) ICD Codes: I25.10 - Atherosclerotic heart disease of [place] coronary artery without angina pectoris SNOMED: 11659582 (5) Hypertension ICD Codes: I10 - Essential (primary) hypertension SNOMED: 11950606 (6) Vomiting ICD Codes: R11.10 - Vomiting, unspecified SNOMED: 829481929 Status: stable, progressing Assessment/Plan ivf antiemetics pain rx try to advance diet repeat urine studies antiplt rx PPI Subjective ROS Limited/Unobtainable: No Constitutional: Reports: malaise, weakness HEENT: Reports: no symptoms Cardiovascular: Reports: no symptoms Respiratory: Reports: cough Gastrointestinal/Abdominal: Reports: nausea, poor appetite, vomiting Genitourinary: Reports: no symptoms Neurologic/Psychiatric: Reports: no symptoms Endocrine: Reports: no symptoms Hematologic/Lymphatic: Reports: anemia Allergies: Coded Allergies: ORANGE JUICE (Verified Allergy, Unknown, 06/25/14) All Systems: reviewed and negative except above Subjective still with pain. nausea. poor pos. c/o severe hip pain. ct noted. ?abnormal UA vs contaminant Objective Last 24 Hour Vital Signs Date Time Temp Pulse Resp B/P (MAP) Pulse Ox O2 Delivery O2 Flow Rate FiO2 04/16/18 04:00 97.7 87 19 120/69 96 Room Air 97.7 04/16/18 00:00 97.5 71 18 115/80 97 Room Air 97.5 04/15/18 20:43 85 118/89 04/15/18 20:00 98.5 85 18 118/89 97 Room Air 98.5 04/15/18 16:00 98.3 93 20 141/77 97 Room Air 98.3 04/15/18 12:00 98.5 92 18 124/66 100 Room Air 98.5 04/15/18 09:00 79 103/64 Intake and Output 04/15/18 04/16/18 19:00 07:00 Intake Total 1500 ml 1296 ml Balance 1500 ml 1296 ml IV Total 1500 ml 1296 ml # Voids 3 3 Laboratory Tests 04/15/18 09:50: Sodium Level 141, Potassium Level 3.4L, Chloride Level 106, Carbon Dioxide Level 26, Anion Gap 9, Blood Urea Nitrogen 9, Creatinine 0.6, Estimat Glomerular Filtration Rate > 60, Glucose Level 84, Calcium Level 8.1L, Total Bilirubin 0.3, Aspartate Amino Transf (AST/SGOT) 15, Alanine Aminotransferase ( ALT/SGPT) 12, Alkaline Phosphatase 96, Total Protein 6.2L, Albumin 2.8L, Globulin 3.4, Albumin/Globulin Ratio 0.8L 04/16/18 06:30: Sodium Level 142, Potassium Level 3.6, Chloride Level 109H, Carbon Dioxide Level 25, Anion Gap 8, Blood Urea Nitrogen 5L, Creatinine 0.6, Estimat Glomerular Filtration Rate > 60, Glucose Level 90, Calcium Level 7.9L, Magnesium Level 1.8, Iron Level 35L, Total Iron Binding Capacity 248L, Percent Iron Saturation 14L, Unsaturated Iron Binding 213 Height (Feet): 5 Height (Inches): 4.00 Weight (Pounds): 144 Objective General Appearance: WD/WN, lethargic Neck: supple Cardiovascular: regular rhythm Respiratory/Chest: chest wall non-tender, lungs clear, normal breath sounds Abdomen: normal bowel sounds, no organomegaly, hyperactive bowel sounds, tender Edema: no edema noted Arm (L), no edema noted Arm (R), no edema noted Leg (L), no edema noted Leg (R), no edema noted Pedal (L), no edema noted Pedal (R), no edema noted Generalized Sudhakar Conti MD Apr 16, 2018 08:19
[2018-04-16] MEDS: Aspirin Baby 81mg ORAL SCH (08:26)
[2018-04-16] MEDS: Metoprolol 25mg tab ORAL SCH ×2 (08:26→21:28)
[2018-04-16 11:25] LABS: APPEARANCE,URINE CLEAR; BILIRUBIN, URINE NEGATIVE (NEGATIVE); COLOR,URINE PALE YELLOW; GLUCOSE, URINE (UA) NEGATIVE (NEGATIVE); KETONES,URINE NEGATIVE (NEGATIVE); LEUKOCYTE ESTERASE ,URINE NEGATIVE (NEGATIVE); NITRITE,URINE NEGATIVE (NEGATIVE); PH,URINE 6.5 (4.5-8.0); PROTEIN,URINE NEGATIVE (NEGATIVE); UROBILINOGEN,URINE NORMAL MG/DL (0.0-1.0)
[2018-04-16 12:00] VITALS: BP 134/89
[2018-04-16 17:00] VITALS: BP 123/74
[2018-04-16 20:00] VITALS: BP 135/85
[2018-04-16] MEDS: Dyna-Hex 2% Top Sol 2oz TOPIC SCH (20:09)
[2018-04-16] MEDS: Zolpidem 5mg tab ORAL PRN (22:30)
--- NOTE | 2018-04-16 22:45 | Progress Note ---
DATE: 04/16/2018 CARDIOLOGY PROGRESS NOTE SUBJECTIVE: Still with nausea, abdominal pain and poor appetite. She also has severe pain in her left hip. Her left upper extremity PICC line is functioning appropriately. OBJECTIVE: VITAL SIGNS: Blood pressure 120/69, pulse 87, and respiratory rate 19. LUNGS: Clear. CARDIAC: Regular. Normal S1 and S2 with a fourth heart sound. ABDOMEN: Slightly distended, but soft. Diffuse mild tenderness. No guarding. EXTREMITIES: No edema. PICC line site with no bleeding. LABORATORY AND DIAGNOSTIC DATA: Repeat urinalysis with 0 to 2 white cells. Potassium is 3.6, BUN 5 and creatinine 0.6. Magnesium 1.8. IMPRESSION: 1. Cyclic vomiting. 2. Hypovolemia and dehydration, corrected. 3. Anemia of chronic disease. 4. Ischemic cardiomyopathy. 5. Stable angina. 6. Hyperlipidemia. 7. Poor peripheral IV access status post PICC line. 8. Hypokalemia, improving. 9. Moderate protein-calorie malnutrition. PLAN: 1. Adjust IV fluids. 2. Replace potassium. 3. Continue anti-platelet therapy. 4. Resume statin drug once oral intake and nausea recovered. Jamar Pabon M.D. DR: SHANA JOB#: [id number] CC:
[2018-04-17] VITALS: BP 133/81
[2018-04-17] MEDS: NS IV SCH ×5 (03:27→23:18)
[2018-04-17] MEDS: KCL IV SCH ×5 (03:27→23:18)
[2018-04-17] MEDS: Morphine Sulfate 4mg/ml Inj IVP PRN ×5 (03:59→21:10)
[2018-04-17 04:00] VITALS: BP 137/76
[2018-04-17 08:00] VITALS: BP 147/84
[2018-04-17] MEDS: Aspirin Baby 81mg ORAL SCH (08:17)
[2018-04-17] MEDS: Metoprolol 25mg tab ORAL SCH ×2 (08:17→20:25)
--- NOTE | 2018-04-17 09:38 | General Progress Note ---
Assessment/Plan Problem List: (1) Dehydration ICD Codes: E86.0 - Dehydration SNOMED: 97076494 (2) Hypertensive urgency ICD Codes: I10 - Hypertensive urgency SNOMED: 707138345 (3) Cyclical vomiting associated with migraine ICD Codes: G43.A0 - Cyclical vomiting associated with migraine SNOMED: 150675607 (4) CAD (coronary artery disease) ICD Codes: I25.10 - Atherosclerotic heart disease of [place] coronary artery without angina pectoris SNOMED: 43550280 (5) Hypertension ICD Codes: I10 - Essential (primary) hypertension SNOMED: 42438348 (6) Vomiting ICD Codes: R11.10 - Vomiting, unspecified SNOMED: 392156551 Status: stable, progressing Assessment/Plan ivf start iv abx for uti await cultures/sensitivity antiemetics pain rx mri lumbar spine try to advance diet antiplt rx PPI Subjective ROS Limited/Unobtainable: No Constitutional: Reports: malaise, weakness HEENT: Reports: no symptoms Cardiovascular: Reports: no symptoms Respiratory: Reports: no symptoms Gastrointestinal/Abdominal: Reports: nausea Genitourinary: Reports: no symptoms Neurologic/Psychiatric: Reports: no symptoms Endocrine: Reports: no symptoms Hematologic/Lymphatic: Reports: no symptoms Allergies: Coded Allergies: ORANGE JUICE (Verified Allergy, Unknown, 06/25/14) All Systems: reviewed and negative except above Subjective c/o severe back pain. less nausea and abd pain. requiring iv pain rx atc.Ucx with GNR. Objective Last 24 Hour Vital Signs Date Time Temp Pulse Resp B/P (MAP) Pulse Ox O2 Delivery O2 Flow Rate FiO2 04/17/18 08:17 99.0 04/17/18 08:17 99 147/84 04/17/18 04:00 99.0 74 18 137/76 98 Room Air 99.0 04/17/18 00:00 99.1 75 18 133/81 96 Room Air 99.1 04/16/18 21:28 84 135/85 04/16/18 20:00 98.6 84 18 135/85 97 Room Air 98.6 04/16/18 17:00 97.3 69 19 123/74 96 Room Air 97.3 04/16/18 12:00 97.3 69 19 134/89 96 Room Air 97.3 Intake and Output 04/16/18 04/17/18 19:00 07:00 Intake Total 439 ml 2240 ml Balance 439 ml 2240 ml Intake Oral 240 ml 250 ml IV Total 199 ml 1990 ml # Voids 4 3 Laboratory Tests 04/16/18 10:40: Urine Color Pale yellow, Urine Appearance Clear, Urine pH 6.5, Urine Specific [place] 1.010, Urine Protein Negative, Urine Glucose (UA) Negative, Urine Ketones Negative, Urine Occult Blood 3+H, Urine Nitrite Negative, Urine Bilirubin Negative, Urine Urobilinogen Normal, Urine Leukocyte Esterase Negative , Urine RBC 5-10H, Urine WBC 0-2, Urine Squamous Epithelial Cells Occasional, Urine Bacteria Occasional Height (Feet): 5 Height (Inches): 4.00 Weight (Pounds): 144 Objective General Appearance: WD/WN, lethargic Neck: supple Cardiovascular: regular rhythm Respiratory/Chest: chest wall non-tender, lungs clear, normal breath sounds Abdomen: normal bowel sounds, no organomegaly, hyperactive bowel sounds, tender Edema: no edema noted Arm (L), no edema noted Arm (R), no edema noted Leg (L), no edema noted Leg (R), no edema noted Pedal (L), no edema noted Pedal (R), no edema noted Generalized Sudhakar Conti MD Apr 17, 2018 09:38
[2018-04-17] MEDS: Piperacillin/Tazobactam 3.375 GM in D5W 110 ML IVPB SCH ×2 (11:34→19:41)
[2018-04-17 11:59] VITALS: BP 140/86
--- NOTE | 2018-04-17 12:56 | Diagnostic Imaging Report ---
Indication: Back pain Technique: MRI examination of the Lumbar spine was performed in a 1.5 Priti magnet. Sequences obtained include sagittal and axial T1 and T2 fast spin echo, and sagittal STIR. Comparison: none Findings: Bone marrow signal and alignment are normal. The height and signal of the intervertebral discs are within normal limits. There is no fracture or evidence of an acute injury. The ligaments are unremarkable. Conus medullaris is seen at L1. The visualized part of the distal spinal cord is normal in appearance. L1-2 is unremarkable. L2-3 is unremarkable. L3-4 shows a very mild concentric disc bulge. Mild hypertrophied facets noted. No stenosis of the central canal, lateral recess or neural foramen demonstrated. L4-5 shows mild concentric disc bulge and facet hypertrophy. There is no stenosis of the central canal, lateral recess or neural foramen. L5-S1 disc is mildly narrowed. There are conjoined nerve roots bilaterally present. There is no stenosis of the central canal lateral recess or neural foramen. At S2 there is a slightly left of midline Tarlov cyst measuring 1 cm. IMPRESSION: Mild degenerative disease of the lumbar spine with facet arthropathy at L3-4, L4-5 and L5-S1. Mild degenerative disc disease at L5-S1. 1 cm left sacral perineural cyst at S2
[2018-04-17 16:00] VITALS: BP 163/88
[2018-04-17 20:00] VITALS: BP 149/74
[2018-04-17] MEDS: Dyna-Hex 2% Top Sol 2oz TOPIC SCH (20:25)
[2018-04-17] MEDS: Zolpidem 5mg tab ORAL PRN (22:33)
[2018-04-18] VITALS: BP 142/92
--- NOTE | 2018-04-18 01:15 | Progress Note ---
DATE: 04/17/2018 CARDIOLOGY PROGRESS NOTE SUBJECTIVE: Back pain now is worsening. She is on [id number] pain medications. Urine culture is abnormal. No chest pain or shortness of breath. Blood pressure is trending up. OBJECTIVE: VITAL SIGNS: Blood pressure 147/84, pulse 99, respiratory rate 18, and temperature 99 degrees. NECK: Supple. LUNGS: Clear. CARDIAC: Regular. Normal S1 and S2 with a fourth heart sound. ABDOMEN: Soft. EXTREMITIES: No edema. No CVA tenderness. Paraspinal tenderness is noted. PICC line in the left forearm is intact. IMPRESSION: 1. Acute back pain. 2. Acute urinary tract infection. 3. Ischemic cardiomyopathy with stable angina. 4. Hypertensive heart disease with increasing blood pressure trend, likely due to back pain. 5. Cyclic vomiting with exacerbation, now resolving. 6. Hypovolemia and dehydration, corrected. PLAN: MRI of the spine is pending. Hydration by IV route. Central venous access due to peripheral IV. Pain control. DVT prophylaxis. Maintain beta-liz, anti-platelet and anti-lipid drugs without change at this time. Jamar Pabon M.D. DR: SHANA JOB#: [id number] CC:
[2018-04-18] MEDS: Morphine Sulfate 4mg/ml Inj IVP PRN ×3 (01:17→09:33)
[2018-04-18] MEDS: Piperacillin/Tazobactam 3.375 GM in D5W 110 ML IVPB SCH ×2 (02:34→11:00)
[2018-04-18] MEDS: KCL IV SCH ×2 (02:39→09:22)
[2018-04-18] MEDS: NS IV SCH ×2 (02:39→09:22)
[2018-04-18 04:00] VITALS: BP 142/83
[2018-04-18 08:00] VITALS: BP 139/90
[2018-04-18 08:31] VITALS: BP 139/90
[2018-04-18] MEDS: Metoprolol 25mg tab ORAL SCH (08:31)
[2018-04-18] MEDS: Aspirin Baby 81mg ORAL SCH (09:00)
--- NOTE | 2018-04-18 10:15 | Discharge Summary ---
DATE OF ADMISSION: 04/13/2018 DATE OF DISCHARGE: 04/18/2018 ADMISSION DIAGNOSES: Intractable nausea and vomiting, dehydration, possible pyelonephritis, intractable back pain, hypertension, ischemic cardiomyopathy, and cyclic vomiting. DISCHARGE DIAGNOSES: Intractable nausea and vomiting, dehydration, possible pyelonephritis, intractable back pain, hypertension, ischemic cardiomyopathy, and cyclic vomiting. HOSPITAL COURSE: The patient is a very pleasant female, admitted with complaints of intractable nausea and vomiting. She was diagnosed with cyclic vomiting and pyelonephritis. Urine cultures grew gram-negative rods. She received IV antibiotics. Hospital course complicated by severe intractable back pain. She had an MRI that showed degenerative disc disease with a few disc herniation. She was treated with IV pain medications. She will be discharged home. We will follow up in 2 weeks. DISCHARGE MEDICATIONS: Please see discharge medication list for discharge medications. DIET: Cardiac diet. ACTIVITIES: Ad-osvaldo. FOLLOW-UP: The patient will follow up with me in one to two weeks in the office. Sudhakar Conti M.D. DR: SRI JOB#: [id number] CC:
--- NOTE | 2018-04-18 21:59 | Progress Note ---
DATE: 04/18/2018 SUBJECTIVE: The patient's back pain improved. She was on IV and pain medications yesterday. MRI was notable for some disc herniations. No acute process. Nausea and vomiting have resolved. No chest pain. No shortness of breath. OBJECTIVE: VITAL SIGNS: Blood pressure 142/83, pulse 81, respirations 18, and afebrile. LUNGS: Clear. CARDIAC: Regular. Normal S1, S2 with a fourth heart sound. ABDOMEN: Soft, nontender, no edema. IMPRESSION: 1. Cardiovascular parameters stable, although blood pressure trend is somewhat elevated. 2. At this time, we will continue her current cardiovascular regimen upon discharge including aspirin, statin and current dose of beta-liz. 3. We will further observe blood pressure as an outpatient and consider additional therapy if needed. A component contributing to her blood pressure elevations may be back pain. Jamar Pabon M.D. DR: PAXTON JOB#: [id number] CC:
== END 2018-04-18 11:30 | disposition home or self-care (01) | DRG 103 ==
LOC: 4E 15:00
PROC: 02HV33Z Insertion of Infusion Device into Superior Vena Cava, Percutaneous Approach (ICD-10-PCS; principal; 2018-04-14)
DX: G43.A0 Cyclical vomiting, in migraine, not intractable (principal); N12 Tubulo-interstitial nephritis, not specified as acute or chronic; E44.0 Moderate protein-calorie malnutrition; E86.0 Dehydration; B96.89 Other specified bacterial agents as the cause of diseases classified elsewhere; E86.1 Hypovolemia; I16.0 Hypertensive urgency; I11.9 Hypertensive heart disease without heart failure; M50.10 Cervical disc disorder with radiculopathy, unspecified cervical region; Z95.5 Presence of coronary angioplasty implant and graft; I25.2 Old myocardial infarction; E78.5 Hyperlipidemia, unspecified; M79.7 Fibromyalgia; I25.118 Atherosclerotic heart disease of native coronary artery with other forms of angina pectoris; Z79.02 Long term (current) use of antithrombotics/antiplatelets; E87.6 Hypokalemia; D64.9 Anemia, unspecified; M54.9 Dorsalgia, unspecified
CPT/HCPCS: 36415; 36569; 72148; 72192; 74018; 76937; 80048; 80053; 81001; 81003; 83540; 83550; 83690; 83735; 84484; 85025; 87081; 87086; 87181; J2405

== ENCOUNTER 2018-08-12 11:21 | Outpatient (CLI) | payer MEDICARE, MEDICAID ==
[~2018-08-12 11:21] MED LIST changes: +LINZESS145 MCG PO
--- NOTE | 2018-08-12 13:06 | Diagnostic Imaging Report ---
Indication: Pain, status post fall Technique: 2 views of the left hip Comparison: Hip/pelvic CT dated 04/15/2018 Findings: Numerous eggshell soft tissue calcifications are seen surrounding the hip. These probably represent injection granulomata. Bones are osteoporotic. No acute fractures. No dislocations. The joint spaces are preserved Impression: No acute bony trauma Note, however, that in older osteoporotic patients, displacement fractures can easily be occult. Consider cross-sectional imaging for more sensitive evaluation if there is high clinical suspicion
--- NOTE | 2018-08-12 13:13 | Diagnostic Imaging Report ---
Indications:Probable pain Technique: Three or 4 views of the left elbow Comparison: None Findings: Small ossific density posterior to the olecranon is not completely corticated, could represent a small avulsion fracture or detached osteophyte. There is minimal overlying soft tissue swelling. No joint effusion. No other evidence of fracture or dislocation. The bones appear somewhat demineralized Impression: Ossific density posterior to the olecranon, could represent a small avulsion fracture or detached osteophyte. Correlate with clinical findings. No acute bony trauma otherwise
--- NOTE | 2018-08-13 11:09 | Diagnostic Imaging Report ---
Indication: Knee Pain 3 views of the left knee were obtained. Findings: No acute fracture, malalignment, or joint effusion are identified. Joint space is relatively well-maintained. The lateral view is nondiagnostic due to overexposure. The bones are moderately osteopenic. Impression: Grossly negative for acute injury
== END 2018-08-12 13:21 | disposition home or self-care (01) ==
LOC: RAD 11:21
DX: M25.552 Pain in left hip (principal); M25.562 Pain in left knee; M79.89 Other specified soft tissue disorders
CPT/HCPCS: 72170; 73502

== ENCOUNTER 2020-02-07 21:02 | Inpatient (IN) | payer MEDICARE, MEDICAID ==
[~2020-02-07] VITALS: Ht 160 cm; Wt 70.8 kg
--- NOTE | 2020-02-07 23:13 | NUR ---
NURSE NOTES: Admitted patient direct from home. Brought up to unit via wheelchair. Patient able to transfer from chair to bed with no assistance. Belongings checked and list signed. Home medications at bedside. Patient AOx4. No IV access. Gown and non slip socks given to patient, changed independently Bed low and locked, 2 side rails up.
[2020-02-07] MEDS: HYDROmorphone 1mg/ml Carpuject IVP PRN (23:38)
[2020-02-08] VITALS: BP 147/89
[2020-02-08] MEDS ORDERED: HYDROcodone/Acetamin 10/325 tab ORAL PRN (01:15)
[2020-02-08 01:34] LABS: HEMATOCRIT 41.5 % (37.0-47.0); HEMOGLOBIN 14.5 G/DL (12.0-16.0); MEAN CORPUSCULAR VOLUME 80 FL (80-99); PLATELET COUNT 372 K/UL (150-450); RED BLOOD COUNT 5.22 M/UL (4.20-5.40); RED CELL DISTRIBUTION WIDTH 11.9 % (11.6-14.8); WHITE BLOOD COUNT 11.4 K/UL (4.8-10.8)
[2020-02-08 01:56] LABS: ALANINE AMINOTRANSFERASE 23 U/L (12-78); ALBUMIN 4.3 G/DL (3.4-5.0); ALKALINE PHOSPHATASE 157 U/L (46-116); AMYLASE 74 U/L (25-115); ANION GAP 15 mmol/L (5-15); ASPARTATE AMINO TRANSFERASE 21 U/L (15-37); BILIRUBIN,TOTAL 0.3 MG/DL (0.2-1.0); BLOOD UREA NITROGEN 10 mg/dL (7-18); CALCIUM 9.9 MG/DL (8.5-10.1); CARBON DIOXIDE 24 MMOL/L (21-32); CHLORIDE 102 MMOL/L (98-107); CREATININE 0.8 MG/DL (0.55-1.30); POTASSIUM 3.5 MMOL/L (3.5-5.1); SODIUM 141 MMOL/L (136-145)
[2020-02-08] MEDS: HYDROmorphone 1mg/ml Carpuject IVP PRN (04:49)
--- NOTE | 2020-02-08 07:10 | NUR ---
HAND-OFF: Report given to RODRIGUEZ Kahn. Spoke with pharmacist Kayla, [address] will be brought up by lead pharmacy technician shortly.
[2020-02-08] MEDS: Linaclotide 72mcg ORAL SCH (07:21)
[2020-02-08 07:58] LABS: APPEARANCE,URINE CLEAR; BILIRUBIN, URINE NEGATIVE (NEGATIVE); COLOR,URINE PALE YELLOW; GLUCOSE, URINE (UA) 1+ (NEGATIVE); KETONES,URINE 3+ (NEGATIVE); LEUKOCYTE ESTERASE ,URINE NEGATIVE (NEGATIVE); NITRITE,URINE NEGATIVE (NEGATIVE); PH,URINE 6 (4.5-8.0); PROTEIN,URINE 2+ (NEGATIVE); UROBILINOGEN,URINE NORMAL MG/DL (0.0-1.0)
[2020-02-08 08:00] VITALS: BP 125/85
[2020-02-08] MEDS: Midodrine 10mg tab ORAL SCH ×2 (08:49→18:00)
[2020-02-08] MEDS: Aspirin Baby 81mg ORAL SCH (08:50)
[2020-02-08] MEDS: Pantoprazole Inj IVP SCH (08:50)
[2020-02-08] MEDS: Imdur 30mg tab ORAL SCH (08:50)
[2020-02-08] MEDS: Amitiza 24mcg cap ORAL SCH ×2 (08:50→18:00)
[2020-02-08] MEDS: Heparin 5000 units/ml inj SUBQ SCH ×2 (09:01→20:24)
--- NOTE | 2020-02-08 10:42 | NUR ---
NURSE NOTES: PT AXOX4, STATES PAIN 8-9/10 OF LOWER BACK. RN ADMINISTERED PRN DILAUDID 2MG IVP ORDERED. IN NO APPARENT DISTRESS AT THIS TIME. PT EDUCATED ON FALL/SAFETY PRECAUTIONS AND PT VERBALIZED UNDERSTANDING. PT UNDERSTANDS HOW TO USE CALL LIGHT TO CALL FOR ASSISTANCE. BED IN LOWEST POSITION WITH BEDSIDE RAILS X2 RAISED. WILL CONTINUE TO MONITOR.
[2020-02-08 12:00] VITALS: BP 126/82
[2020-02-08 16:00] VITALS: BP 126/81
--- NOTE | 2020-02-08 16:45 | History and Physical Report ---
DATE OF ADMISSION: 02/07/2020 CHIEF COMPLAINT: Intractable nausea and vomiting, cyclic vomiting, history of ischemic cardiomyopathy. HISTORY OF PRESENT ILLNESS: The patient is a pleasant 69-year-old female, well known to me. She has prior history of ischemic cardiomyopathy, status post stenting, hypertension, hyperlipidemia, history of chronic cervical radiculopathy, admitted with complaints of intractable nausea and vomiting consistent with her prior episodes of cyclic vomiting. According to the patient, she has been doing well until several days prior to admission when she developed intractable nausea and vomiting. She took oral antiemetics and clear liquids, but was unable to tolerate any p.o. She became progressively weaker and dehydrated, and is therefore admitted for further evaluation and care. PAST MEDICAL HISTORY: As above. PAST SURGICAL HISTORY: Includes neck surgery. CURRENT MEDICATIONS: Reconciled and reviewed. ALLERGIES: Include orange juice. FAMILY HISTORY: Noncontributory. SOCIAL HISTORY: There is no known history of tobacco, ethanol, or drugs. REVIEW OF SYSTEMS: GENERAL: No fevers or chills. HEENT: No headaches or visual changes. CARDIOPULMONARY: No chest pain. No shortness of breath. GASTROINTESTINAL: Multiple episodes of nausea and vomiting. No diarrhea. GENITOURINARY: No urgency or frequency. MUSCULOSKELETAL: No joint pain or swelling. NEUROLOGIC: No evidence of seizures. PHYSICAL EXAMINATION: VITAL SIGNS: Temperature 98, pulse 92, respirations 17, blood pressure 126/82. GENERAL: The patient is well developed, in no apparent distress. She is currently retching and dry heaving. NECK: Supple. No jugular venous distention. HEART: Regular rate and rhythm. LUNGS: Clear. ABDOMEN: Soft, nontender, nondistended. EXTREMITIES: Without clubbing, cyanosis, or edema. LABORATORY DATA: White count 11, hemoglobin 14. Sodium 141, potassium 3.5, glucose 161. UA showed 0-2 wbc's. ASSESSMENT: This is a pleasant female, admitted with complaints of intractable nausea and vomiting, consistent with prior episodes of cyclic vomiting. She has a history of ischemic cardiomyopathy as well as hypertension, hyperlipidemia, and chronic back pain. PLAN: Aggressive fluid resuscitation. Cardiology followup regarding the patient's cardiac regimen. GI consultation will also be obtained. We will consider a KUB. IV pain medications. Antiemetics as needed. Anticipate at least 48-hour admission. Sudhakar Conti M.D. DR: Kelli JOB#: [id number] CC:
--- NOTE | 2020-02-08 19:04 | NUR ---
HAND-OFF: Report given to Anibal OLIVAS RN.
--- NOTE | 2020-02-08 19:30 | NUR ---
NURSE NOTES: Patient awake, alert, and verbally responsive. Breathing unlabored on room air without distress. IV noted on right foot intact and patent running IVF. IV on right hand intact and saline locked. Bed placed at the lowest with brake and siderails up for safety. Call light placed within reach. Will continue to monitor.
[2020-02-08 20:00] VITALS: BP 142/79
--- NOTE | 2020-02-08 20:00 | NUR ---
NURSE NOTES: Patient continuously vomiting burgundy colored emesis after an episode of light red colored emesis. Informed Dr. Conti regarding the color of the emesis and patient's abdominal pain 07/20. Received order to perform a stat Abd/pelvis CT without contrast, stat cbc, and one time Dilaudid 2mg IVP for abdominal pain. Order confirmed. Will carry out the order as given.
[2020-02-08] MEDS: Atorvastatin 20mg tab ORAL SCH (20:24)
--- NOTE | 2020-02-08 20:30 | NUR ---
NURSE NOTES: Patient was able to walk independently to a wheelchair when going for a CT abd/pelvis. Minimal supervision needed. Patient preferred independence.
--- NOTE | 2020-02-08 20:50 | Diagnostic Imaging Report ---
Indication: Abdominal pain, nausea, vomiting, vomiting blood Technique: Spiral acquisitions obtained through the abdomen and pelvis. No oral contrast utilized, per emergency room physician request No IV contrast utilized, per referring physician request.. Multiplanar reconstructions were generated. Total dose length product 293 mGycm. CTDIvol(s) 5 mGy. Dose reduction achieved using automated exposure control Comparison: 04/16/2017 Findings: There is fairly extensive colonic diverticulosis. No evidence of acute diverticulitis. The appendix is normal. No small bowel distention. No free or loculated intraperitoneal gas or fluid is evident. There is a small slight type hiatal hernia. The remainder of the stomach and duodenum are unremarkable. There is a tiny umbilical hernia that contains only fat. A few small prominent nodes are seen adjacent to the cecum Lack of IV contrast limits assessment of the solid organs. The liver is unremarkable. The gallbladder contents are somewhat high in attenuation, may indicate milk of calcium bile. The spleen, adrenals, pancreas, kidneys are all unremarkable. No retroperitoneal or mesenteric mass or adenopathy. No pelvic mass or adenopathy. The included lung bases demonstrate some atelectatic changes and scarring. There is minimal bilateral basilar bronchiectasis as well. The bones are unremarkable. When compared to the prior exam, previously demonstrated pericecal inflammatory changes are no longer evident. Impression: No acute abnormality Colonic diverticulosis. No evidence of diverticulitis Small hiatal hernia Basilar pulmonary parenchymal atelectasis and scarring This agrees with the preliminary interpretation provided overnight by [facility] teleradiology service. The CT scanner at [facility] is accredited by the [employer] and the scans are performed using protocols designed to limit radiation exposure to as low as reasonably achievable to attain images of sufficient resolution adequate for diagnostic evaluation.
[2020-02-08 21:07] LABS: BASOPHILS % (AUTO) 1.5 % (0.0-2.0); EOSINOPHILS % (AUTO) 0.4 % (0.0-3.0); HEMATOCRIT 41.2 % (37.0-47.0); LYMPHOCYTES % (AUTO) 29.3 % (20.0-45.0); MEAN CORPUSCULAR VOLUME 84 FL (80-99); MONOCYTES % (AUTO) 7.8 % (1.0-10.0); PLATELET COUNT 406 K/UL (150-450); RED BLOOD COUNT 4.92 M/UL (4.20-5.40); RED CELL DISTRIBUTION WIDTH 14.1 % (11.6-14.8); WHITE BLOOD COUNT 9.4 K/UL (4.8-10.8)
[2020-02-08] MEDS ORDERED: Heparin1,000 units/500ml Premix(Conc:2 units/ml) IV SCH (23:30)
[2020-02-08] MEDS ORDERED: Lidocaine 1% Plain 30 ml INJ SCH (23:30)
[2020-02-09] VITALS: BP 128/80
--- NOTE | 2020-02-09 | Consultation ---
DATE OF CONSULTATION: 02/08/2020 CARDIOLOGY CONSULTATION CONSULTING PHYSICIAN: Jamar Pabon M.D. REQUESTING PHYSICIAN: Sudhakar Conti M.D. REASON FOR CONSULTATION: Management of volume status in the setting of intractable vomiting and ischemic cardiomyopathy. HISTORY OF PRESENT ILLNESS: This is a 69-year-old female with a known history of ischemic heart disease, prior myocardial infarction, and coronary stenting to the left anterior descending circumflex and circumflex distribution. She has been managed medically for a number of years. She has had a stable class 2 anginal pattern. She has been compliant with medications and she has been able to maintain favorable lipid parameters on therapy while continuing on anti-platelet drugs. The patient also has a history of cyclic vomiting and has had several days of intractable nausea with severe vomiting. She has not been able to keep food down for the past three days and has not had any remitting remission in the vomiting despite usual therapies. The patient has not had any chest pain, but notes severe discomfort in her upper chest and lower abdomen due to vomiting. She has not passed out, but has felt lightheaded and dizzy with her vomiting episodes. PAST MEDICAL HISTORY: As outlined above, includes coronary artery disease, hyperlipidemia, hypertension with hypertensive heart disease, cervical radiculopathy with degenerative disk disease, fibromyalgia. ALLERGIES: No known drug allergies. MEDICATIONS: Reviewed and reconciled. FAMILY HISTORY: Notable for hypertension and hyperlipidemia. SOCIAL HISTORY: Negative for smoking, alcohol, or substance abuse. REVIEW OF SYSTEMS: No history of diabetes or thyroid disorder. No history of seizure or stroke. LDL cholesterol has been less than 100. She is on anti-platelet therapy with no bleeding complications. There is no history of cardiac arrhythmias other than nonsustained atrial ectopics. There is no history of rheumatic heart disease or endocarditis. Her most recent echocardiogram revealed normal ejection fraction with mild concentric hypertrophy and minimal degenerative valve disease. Her most recent stress echocardiogram revealed no evidence of flow-limiting coronary artery disease with normal wall motion at peak exercise and good exercise capacity. There is no history of bronchospastic lung disease. PHYSICAL EXAMINATION: VITAL SIGNS: Afebrile, blood pressure 126/82, pulse 92, respirations 17. HEENT: Normocephalic, atraumatic. Conjunctivae pink. Oropharynx clear. Mucous membranes moist. NECK: Supple. Jugular venous pressure normal. LUNGS: Clear. BREASTS: Without discrete masses. CARDIAC: Regular rhythm and rate. Normal S1, S2 with a fourth heart sound. ABDOMEN: Soft. No focal guarding or rebound. There is mild tenderness in all quadrants. EXTREMITIES: No clubbing, cyanosis, or edema. NEUROLOGIC: Nonfocal. LABORATORY DATA: Urinalysis, 0 to 2 white cells. Potassium 3.5. White count 11 and hemoglobin 14. IMPRESSION: 1. Intractable vomiting. 2. History of cyclic vomiting. 3. Mild dehydration and hypovolemia. 4. Ischemic cardiomyopathy with stable angina. 5. Vasovagal mediated near syncope. 6. Hypertensive heart disease with controlled blood pressure. 7. Hyperlipidemia. 8. Poor peripheral intravenous access. PLAN: 1. Volume resuscitation by IV route. 2. Central venous access. 3. Hold statin drug. 4. Continue anti-platelet therapy and beta-liz. 5. Antiemetics as needed. 6. Review EKG. Jamar Pabon M.D. DR: SKY JOB#: [id number] CC:
--- NOTE | 2020-02-09 00:30 | NUR ---
NURSE NOTES: Patient verbalized "feeling better" after a sleep. No additional episodes of vomiting at this time. Will continue to monitor.
[2020-02-09 04:00] VITALS: BP 139/76
[2020-02-09] MEDS: Linaclotide 72mcg ORAL SCH (07:24)
--- NOTE | 2020-02-09 07:29 | NUR ---
HAND-OFF: Report given to RODRIGUEZ Kahn. Plan of care endorsed.
--- NOTE | 2020-02-09 07:47 | NUR ---
NURSE NOTES: PT AXOX4, CALM, RESTING IN BED. PT C/O CONTINUOUS NAUSEA AND VOMITING. PT EDUCATED ON PRN SCHEDULE OF ZOFRAN AND DILAUDID. PT VERBALIZED UNDERSTANDING. PER REPORT, PT WITH BURGUNDY EMESIS. DR DUFFY AWARE. PT TO GET PICC PLACEMENT TODAY. IN NO APPARENT DISTRESS AT THIS TIME. BED IN LOWEST POSITION WITH BEDSIDE RAILS X2 RAISED. CALL LIGHT WITHIN REACH. WILL CONTINUE TO MONITOR.
[2020-02-09 08:00] VITALS: BP 124/72
--- NOTE | 2020-02-09 09:22 | General Progress Note ---
Assessment/Plan Problem List: (1) cyclical vomiting, uti and hypertension (2) GIB (gastrointestinal bleeding) ICD Codes: K92.2 - Gastrointestinal hemorrhage, unspecified SNOMED: 58092635 (3) Dehydration ICD Codes: E86.0 - Dehydration SNOMED: 51213244 (4) Intractable nausea and vomiting ICD Codes: R11.10 - Vomiting, unspecified SNOMED: 230297317 (5) CAD (coronary artery disease) ICD Codes: I25.10 - Atherosclerotic heart disease of [place] coronary artery without angina pectoris SNOMED: 33777907 (6) Hypertension ICD Codes: I10 - Essential (primary) hypertension SNOMED: 89417505 Status: stable Assessment/Plan: Continue IV hydration. IV antiemetics and IV pain medications as needed. Continue IV PPI. We will follow-up pending CBC from this morning. Repeat CBC and labs have been ordered for tomorrow. Blood pressure treatment per cardiology. Cautious antiplatelet therapy. Will reassess after repeat CBC from this morning is back. We will follow-up CT scan. GI consultation is currently pending. Patient may require endoscopy. Subjective ROS Limited/Unobtainable: No Constitutional: Reports: malaise, weakness HEENT: Reports: no symptoms Cardiovascular: Reports: no symptoms Respiratory: Reports: no symptoms Gastrointestinal/Abdominal: Reports: nausea, vomiting Genitourinary: Reports: no symptoms Neurologic/Psychiatric: Reports: no symptoms Endocrine: Reports: no symptoms Hematologic/Lymphatic: Reports: no symptoms Allergies: Coded Allergies: ORANGE JUICE (Verified Allergy, Unknown, 06/25/14) All Systems: reviewed and negative except above Subjective Last night patient had worsening abdominal pain nausea and vomiting. She had a large amount of bright red blood/hematemesis. Stat hemoglobin was stable. This morning she feels improved. She has had no stool melena or bright red blood per rectum. Patient remains on IV hydration. She is on IV PPI. She is requiring IV pain medications and antiemetics [id number]. Objective Last 24 Hour Vital Signs Date Time Temp Pulse Resp B/P (MAP) Pulse Ox O2 Delivery O2 Flow Rate FiO2 02/09/20 09:00 Room Air 02/09/20 08:00 98.1 67 16 124/72 (89) 96 02/09/20 04:00 97.6 80 19 139/76 (97) 97 02/09/20 00:00 98.0 94 20 128/80 (96) 98 02/08/20 21:00 Room Air 02/08/20 20:24 85 142/79 02/08/20 20:00 97.0 85 20 142/79 (100) 94 02/08/20 16:00 98.4 98 20 126/81 (96) 99 02/08/20 12:00 98.3 90 17 126/82 (97) 97 Intake and Output 02/08/20 02/09/20 18:59 06:59 Intake Total 1625 ml 1020 ml Output Total 800 ml Balance 1625 ml 220 ml Intake Oral 800 ml 120 ml IV Total 825 ml 900 ml Output Urine Total 800 ml # Voids 2 # Bowel Movements 1 Laboratory Tests 02/08/20 20:48: White Blood Count 9.4, Red Blood Count 4.92, Hemoglobin 13.0, Hematocrit 41.2, Mean Corpuscular Volume 84, Mean Corpuscular Hemoglobin 26.5L, Mean Corpuscular Hemoglobin Concent 31.7L, Red Cell Distribution Width 14.1, Platelet Count 406, Mean Platelet Volume 6.7, Neutrophils (%) (Auto) 61.0, Lymphocytes (%) (Auto) 29.3, Monocytes (%) (Auto) 7.8, Eosinophils (%) (Auto) 0.4, Basophils (%) (Auto ) 1.5 Height (Feet): 5 Height (Inches): 4.00 Weight (Pounds): 156 General Appearance: WD/WN, alert Neck: supple Cardiovascular: normal rate, regular rhythm Respiratory/Chest: chest wall non-tender, lungs clear, normal breath sounds, no respiratory distress Abdomen: normal bowel sounds, non tender, soft, no organomegaly, no mass Edema: no edema noted Arm (L), no edema noted Arm (R), no edema noted Leg (L), no edema noted Leg (R), no edema noted Pedal (L), no edema noted Pedal (R), no edema noted Generalized Edema: trace edema 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
[2020-02-09] MEDS: Midodrine 10mg tab ORAL SCH ×2 (10:26→17:19)
[2020-02-09] MEDS: Pantoprazole Inj IVP SCH (10:26)
[2020-02-09] MEDS: Amitiza 24mcg cap ORAL SCH ×2 (10:26→17:19)
[2020-02-09] MEDS: Aspirin Baby 81mg ORAL SCH (10:27)
[2020-02-09] MEDS: Imdur 30mg tab ORAL SCH (10:27)
[2020-02-09] MEDS: Heparin 5000 units/ml inj SUBQ SCH ×2 (10:27→20:50)
[2020-02-09 12:00] VITALS: BP 145/76
--- NOTE | 2020-02-09 12:58 | NUR ---
CASE MANAGEMENT: INITIAL REVIEW 69YR OLD FEMALE FROM HOME HX: CYCLIC VOMITING, ISCHEMIC CARDIOMYOPATHY, MYOCARDIAL INFARCTION CC: INTRACTABLE NAUSEA AND VOMITING SI:INTRACTABLE VOMITING . EPISODE CYCLIC VOMITING 98.3 95 18 147/89 99% ON RA WBC 11.4 BG 161 ALKP 157 IS: IV NS@75ML/HR MIDODRINE PO BID AMITIZA PO BID IV PROTONIX QD LINACLOTIDE PO QAC LOPRESSOR PO BID IMDUR PO QD ASA PO QD HEPARIN SQ BID LIPITOR PO QHS \4E MED SURG UNIT DCP: HOME WHEN STABLE PLAN: CONTROL PAIN OBSERVE VOMITING AND RECORD AMOUNT MEDICATION ADJUSTMENT PATIENT REPORTS VOMITING BLOOD IV LINE PLACEMENT IN FOOT-DUE TO HARD STICK CASE MANAGEMENT: REVIEW 02/09/20 SI:INTRACTABLE VOMITING . EPISODE CYCLIC VOMITING . UTI . GI BLEED 98.0 94 20 128/80 98% ON RA IS: IV NS@75ML/HR MIDODRINE PO BID AMITIZA PO BID IV PROTONIX QD LINACLOTIDE PO QAC LOPRESSOR PO BID IMDUR PO QD ASA PO QD HEPARIN SQ BID LIPITOR PO QHS \4E MED SURG UNIT DCP: HOME WHEN STABLE PLAN: PICC LINE PLACEMENT- IV SITE IN FOOT CLEAR LIQ DIET VOMITING EARLIER THIS AM
[2020-02-09] MEDS: Heparin1,000 units/500ml Premix(Conc:2 units/ml) IV SCH (13:07)
[2020-02-09] MEDS: Lidocaine 1% Plain 30 ml INJ SCH (13:07)
--- NOTE | 2020-02-09 13:53 | Pre-Procedure Note/Attestation ---
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 I attest that, if there was a reasonable possibility of needing a blood transfusion, the patient (or the patient's legal sales representative education courses) was given the [facility] standardized written summary, pursuant to the [place] Blood Safety Act ([place] Health and Safety Code # 1645, as amended). I attest that I re-evaluated the patient just prior to the surgery and that there has been no change in the patient's H&P, except as documented below: Matthias Bolanos MD Feb 09, 2020 13:53
--- NOTE | 2020-02-09 13:54 | Brief Operative Note ---
Immediate Post Operative Note Operative Note Pre-op Diagnosis: GIB, needs ocean transportation intermediary venous access Procedure: PICC Post-op Diagnosis: same as pre-op Surgeon: Ray Gallego Anesthesia: local Specimen: none Complications: none Condition: stable Fluids: NONE Implant(s) used?: No Matthias Gallego MD Feb 09, 2020 13:54
--- NOTE | 2020-02-09 14:02 | NUR ---
RADIOLOGY NOTE: LEFT UPPER EXTREMITY 3L PICC LINE PLACED BY DR. ELISEO OCHOA AT 1300 HRS. FA
[2020-02-09 14:11] LABS: BASOPHILS % (AUTO) 1.5 % (0.0-2.0); HEMATOCRIT 36.9 % (37.0-47.0); HEMOGLOBIN 12.1 G/DL (12.0-16.0); LYMPHOCYTES % (AUTO) 25.2 % (20.0-45.0); MEAN CORPUSCULAR VOLUME 82 FL (80-99); MONOCYTES % (AUTO) 5.1 % (1.0-10.0); NEUTROPHILS % (AUTO) 67.3 % (45.0-75.0); PLATELET COUNT 338 K/UL (150-450); RED BLOOD COUNT 4.53 M/UL (4.20-5.40)
--- NOTE | 2020-02-09 14:16 | NUR ---
NURSE NOTES: PT WITH LEFT UPPER ARM PICC LINE, TRIPLE LUMEN. PT IS AXOX4, CALM, RESTING IN BED.
--- NOTE | 2020-02-09 14:35 | Diagnostic Imaging Report ---
Indications: Needs long-term IV access Technique: Ultrasound confirms patent compressible left basilic vein. Total sterile technique, including hand hygiene, sterile probe cover and sterile gel, hat, mask, sterile gown, large sterile drape, and preparation with 2% chlorhexidine utilized. Local anesthesia with 1% lidocaine. Under real-time ultrasound guidance, puncture left basilic vein using 21-gauge needle, documented and archived, passage 0.018 guidewire under direct fluoroscopy, which was used to determine appropriate catheter length, exchange for 4 Stateless peel-away sheath. 4 Stateless Bard dual-lumen power PICC cut to 40 cm. It was inserted through the peel-away sheath. Peel-away sheath and guidewire removed. Catheter fixed to the skin. Both catheter ports aspirated and flushed. Patient tolerated procedure well, without immediate complication. Digital radiograph documents satisfactory catheter tip position, at the cavoatrial junction. Total fluoroscopy time 17.8 seconds. Total dose area product 0.24806 mGym2 Total number of images: 1 Impression: Successful placement of left arm PICC under sonographic and fluoroscopic guidance, as described above.
[2020-02-09 16:00] VITALS: BP 117/73
--- NOTE | 2020-02-09 18:00 | NUR ---
NURSE NOTES: NO EMESIS REPORTED DURING RN'S SHIFT, BUT WITH CONTINUED NAUSEA.
--- NOTE | 2020-02-09 19:12 | NUR ---
HAND-OFF: Report given to Anibal PHILLIPS RN
--- NOTE | 2020-02-09 19:24 | NUR ---
NURSE NOTES: Received patient in bed, awake, alert, oriented x4, able to make her needs known, PICC line is in place, dressing is clean dry and intact, no acute distress noted, call light is within reach, bed is lowered, locked, alarm is on, will continue to monitor for comfort and safety. Will closely monitor episodes of nausea and vomiting.
[2020-02-09 20:00] VITALS: BP 134/80
--- NOTE | 2020-02-09 20:08 | NUR ---
HAND-OFF: Report given to Sarbjit FRIAS.
[2020-02-09] MEDS: Atorvastatin 20mg tab ORAL SCH (20:50)
[2020-02-09] MEDS: Dyna-Hex 2% Top Sol 2oz TOPIC SCH (20:51)
--- NOTE | 2020-02-09 20:59 | NUR ---
NURSE NOTES: Receive pt on the bed alert, oriented, and verbal. No complain of pain,no sob, and skin intact. Bed locked and lower position, call light within reach . We will continue monitoring her.
--- NOTE | 2020-02-09 22:31 | General Progress Note ---
Assessment/Plan Status: stable Assessment/Plan: Assessment - cyclic N/V syndrome - suspect UGIB from MW tear, likely resolved - s/p EGD/Colon 04/27 - gastritis and diverticulosis - mild anemia - chronic constipation Recommendations - PPI - clears - anti emetics - Elavil - no plans for endoscopy at this time, unless bleeding continues Thank you Kim Varghese MD Subjective Allergies: Coded Allergies: ORANGE JUICE (Verified Allergy, Unknown, 06/25/14) Objective Last 24 Hour Vital Signs Date Time Temp Pulse Resp B/P (MAP) Pulse Ox O2 Delivery O2 Flow Rate FiO2 02/09/20 21:00 Room Air 02/09/20 20:51 93 134/80 02/09/20 20:00 98.3 93 18 134/80 (98) 98 02/09/20 16:00 98.2 68 17 117/73 (88) 76 02/09/20 12:00 98.5 81 17 145/76 (99) 96 02/09/20 10:27 124/72 02/09/20 10:26 67 124/72 02/09/20 09:00 Room Air 02/09/20 08:00 98.1 67 16 124/72 (89) 96 02/09/20 04:00 97.6 80 19 139/76 (97) 97 02/09/20 00:00 98.0 94 20 128/80 (96) 98 Intake and Output 02/08/20 02/09/20 19:00 07:00 Intake Total 1625 ml 1020 ml Output Total 800 ml Balance 1625 ml 220 ml Intake Oral 800 ml 120 ml IV Total 825 ml 900 ml Output Urine Total 800 ml # Voids 2 # Bowel Movements 1 Laboratory Tests 02/09/20 13:35: White Blood Count 8.0, Red Blood Count 4.53, Hemoglobin 12.1, Hematocrit 36.9L, Mean Corpuscular Volume 82, Mean Corpuscular Hemoglobin 26.8L, Mean Corpuscular Hemoglobin Concent 32.9, Red Cell Distribution Width 12.0, Platelet Count 338, Mean Platelet Volume 5.5L, Neutrophils (%) (Auto) 67.3, Lymphocytes (%) (Auto) 25.2, Monocytes (%) (Auto) 5.1, Eosinophils (%) (Auto) 1.0, Basophils (%) (Auto ) 1.5 Height (Feet): 5 Height (Inches): 4.00 Weight (Pounds): 156 Kim Varghese MD Feb 09, 2020 22:31
--- NOTE | 2020-02-09 22:45 | Progress Note ---
DATE: 02/09/2020 SUBJECTIVE: The patient continues to have nausea and some vomiting. No chest pain. No shortness of breath. Poor intravenous access. Has necessitated insertion of a PICC line for IV access. OBJECTIVE: VITAL SIGNS: Blood pressure is 124/72, heart rate 67, respiratory rate 16, and afebrile. LUNGS: Clear. CARDIAC: Regular. Normal S1, S2 with a fourth heart sound. ABDOMEN: Distended, but soft. Tender diffusely. No guarding or rebound. EXTREMITIES: Without edema. PICC line site is clean and dry. IMPRESSION: 1. Cyclic vomiting. 2. Persistent vomiting. 3. Hypovolemia and dehydration. 4. Ischemic cardiomyopathy. 5. Stable angina. 6. Hypertensive heart disease with controlled blood pressure. 7. Hyperlipidemia. PLAN: 1. Continue hydration. 2. NPO. 3. Intravenous access. 4. Pain control. 5. Antiemetics. 6. Continue statin drug and anti-platelet therapy as well as beta-blockade. 7. ProAmatine can be discontinued. Jamar Pabon M.D. DR: GUNNAR JOB#: [id number] CC:
--- NOTE | 2020-02-09 23:45 | Consultation ---
DATE OF CONSULTATION: 02/09/2020 GASTROENTEROLOGY CONSULTATION CONSULTING PHYSICIAN: Kim Varghese M.D. CHIEF COMPLAINT: I was asked to see this patient by Dr. Sudhakar Conti for evaluation of upper gastrointestinal bleeding. HISTORY OF PRESENT ILLNESS: The patient is a pleasant 69-year-old woman with a history of cyclic nausea vomiting syndrome as well as a history of chronic constipation, who comes into the hospital with a 2-day history of vomiting and upper gastrointestinal bleeding. The patient has had a longstanding history of cyclic nausea and vomiting and gets an episode of profuse vomiting occasionally. Her last cycle of nausea and vomiting was April of 2019. On this occasion, she has had nausea and vomiting for about 2 days. Initially, it was nonbloody, but last night it became bloody and she was admitted. She has had an endoscopy and colonoscopy in April of 2018 showing gastritis and diverticulosis. She also has chronic constipation, which has been particularly refractory to treatment. She eventually did have a regular bowel regimen using a combination of Amitiza 24 mcg twice a day and Linzess 140 mg daily. She also is on Elavil on a nightly basis for treatment of her cyclic nausea and vomiting. She takes Pepcid 20 mg twice a day for acid suppression. PAST MEDICAL HISTORY: History of cyclic nausea vomiting syndrome, history of anemia, coronary artery disease, hiatal hernia, gastritis, hypertension, diverticulosis, gastroesophageal reflux, constipation. PAST SURGICAL HISTORY: Status post cardiac stent placement, status post shoulder surgery, carpal tunnel surgery. ALLERGIES: None. FAMILY HISTORY: Positive for lung cancer in her father. SOCIAL HISTORY: The patient is previous smoker. She does not drink alcohol. REVIEW OF SYSTEMS: Otherwise negative. PHYSICAL EXAMINATION: GENERAL: This is a pleasant woman, seen in her room, in no distress. HEENT: Normocephalic and atraumatic. Sclerae anicteric. Oropharynx clear. NECK: Supple. CHEST: Clear to auscultation. CARDIOVASCULAR: Revealed a regular rate. ABDOMEN: Soft. Good bowel sounds. There is some mild diffuse tenderness to palpation without guarding or rebound. EXTREMITIES: No edema. LABORATORY DATA: Noted. ASSESSMENT: This patient has a history of cyclic nausea vomiting syndrome, which is likely the cause of her profuse vomiting in this admission. She appears to have improved now and she has had no further hematemesis. It is possible that her condition is resolving spontaneously and could therefore be managed conservatively with some kind of supportive measures. Since the patient's hematocrit is noted to be intact, I would hold off on any plans for endoscopy unless the bleeding continues. In the meantime, she should be given antiemetics, acid blockade. RECOMMENDATIONS: Per above discussion and per orders written in the chart. Thank you for asking me to participate in the care of this patient. Kim Varghese M.D. DR: KANDI JOB#: [id number] CC: RANDY
[2020-02-10] VITALS: BP 138/77
[2020-02-10 04:00] VITALS: BP 128/80
[2020-02-10 06:09] LABS: BASOPHILS % (AUTO) 1.6 % (0.0-2.0); EOSINOPHILS % (AUTO) 1.9 % (0.0-3.0); HEMATOCRIT 35.7 % (37.0-47.0); HEMOGLOBIN 11.8 G/DL (12.0-16.0); LYMPHOCYTES % (AUTO) 30.8 % (20.0-45.0); MEAN CORPUSCULAR VOLUME 82 FL (80-99); MONOCYTES % (AUTO) 4.9 % (1.0-10.0); NEUTROPHILS % (AUTO) 60.9 % (45.0-75.0); PLATELET COUNT 299 K/UL (150-450); RED BLOOD COUNT 4.36 M/UL (4.20-5.40); WHITE BLOOD COUNT 7.5 K/UL (4.8-10.8)
[2020-02-10] MEDS: Linaclotide 72mcg ORAL SCH (07:06)
--- NOTE | 2020-02-10 07:30 | NUR ---
HAND-OFF: Report given to Brenda FRIAS.
--- NOTE | 2020-02-10 07:40 | NUR ---
NURSE NOTES: Received patient in bed awake. No SOB or acute distress. PICC line intact, dressing intact. HOB elevated. Bed locked in lowest position. Call light within reach. Will continue plan of care.
[2020-02-10 08:00] VITALS: BP 133/74
[2020-02-10] MEDS: Lidocaine 1% Plain 30 ml INJ SCH (08:00)
[2020-02-10] MEDS: Heparin1,000 units/500ml Premix(Conc:2 units/ml) IV SCH (08:00)
[2020-02-10] MEDS: Amitiza 24mcg cap ORAL SCH ×2 (09:18→17:45)
[2020-02-10] MEDS: Aspirin Baby 81mg ORAL SCH (09:18)
[2020-02-10] MEDS: Imdur 30mg tab ORAL SCH (09:18)
[2020-02-10] MEDS: Pantoprazole Inj IVP SCH (09:18)
[2020-02-10] MEDS: Heparin 5000 units/ml inj SUBQ SCH ×2 (09:20→21:50)
--- NOTE | 2020-02-10 09:20 | General Progress Note ---
Assessment/Plan Problem List: (1) cyclical vomiting, uti and hypertension (2) GIB (gastrointestinal bleeding) ICD Codes: K92.2 - Gastrointestinal hemorrhage, unspecified SNOMED: 31345764 (3) Dehydration ICD Codes: E86.0 - Dehydration SNOMED: 76763684 (4) Intractable nausea and vomiting ICD Codes: R11.10 - Vomiting, unspecified SNOMED: 908189743 (5) CAD (coronary artery disease) ICD Codes: I25.10 - Atherosclerotic heart disease of [place] coronary artery without angina pectoris SNOMED: 35105863 (6) Hypertension ICD Codes: I10 - Essential (primary) hypertension SNOMED: 04600134 Status: stable, progressing Assessment/Plan: Continue IV hydration. IV antiemetics and IV pain medications as needed. Continue IV PPI. monitor h/h. blood pressure treatment per cardiology. Cautious antiplatelet therapy. CT reviewed- negative Subjective Allergies: Coded Allergies: ORANGE JUICE (Verified Allergy, Unknown, 06/25/14) Subjective Patient continues have episodes of nausea and vomiting. There is no hematemesis. No melena or bright red blood per rectum. Hemoglobin is trended from 14 down to 11. Patient is currently n.p.o. and is scheduled for upper endoscopy today. She is on a proton pump inhibitor. Pain is better controlled. Patient is requiring antiemetics [id number]. Objective Last 24 Hour Vital Signs Date Time Temp Pulse Resp B/P (MAP) Pulse Ox O2 Delivery O2 Flow Rate FiO2 02/10/20 08:00 98.7 78 18 133/74 (93) 96 02/10/20 04:00 98.2 81 18 128/80 (96) 96 02/10/20 00:00 98.9 82 18 138/77 (97) 02/09/20 21:00 Room Air 02/09/20 21:00 Room Air 02/09/20 20:51 93 134/80 02/09/20 20:00 98.3 93 18 134/80 (98) 98 02/09/20 16:00 98.2 68 17 117/73 (88) 76 02/09/20 12:00 98.5 81 17 145/76 (99) 96 02/09/20 10:27 124/72 02/09/20 10:26 67 124/72 Intake and Output 02/09/20 02/10/20 19:00 07:00 Intake Total 990 ml 1380 ml Output Total 950 ml Balance 990 ml 430 ml Intake Oral 240 ml 480 ml IV Total 750 ml 900 ml Output Urine Total 950 ml # Voids 2 2 Laboratory Tests 02/09/20 13:35: White Blood Count 8.0, Red Blood Count 4.53, Hemoglobin 12.1, Hematocrit 36.9L, Mean Corpuscular Volume 82, Mean Corpuscular Hemoglobin 26.8L, Mean Corpuscular Hemoglobin Concent 32.9, Red Cell Distribution Width 12.0, Platelet Count 338, Mean Platelet Volume 5.5L, Neutrophils (%) (Auto) 67.3, Lymphocytes (%) (Auto) 25.2, Monocytes (%) (Auto) 5.1, Eosinophils (%) (Auto) 1.0, Basophils (%) (Auto ) 1.5 02/10/20 04:52: White Blood Count 7.5, Red Blood Count 4.36, Hemoglobin 11.8L, Hematocrit 35.7L , Mean Corpuscular Volume 82, Mean Corpuscular Hemoglobin 27.1, Mean Corpuscular Hemoglobin Concent 33.0, Red Cell Distribution Width 12.0, Platelet Count 299, Mean Platelet Volume 5.0L, Neutrophils (%) (Auto) 60.9, Lymphocytes ( %) (Auto) 30.8, Monocytes (%) (Auto) 4.9, Eosinophils (%) (Auto) 1.9, Basophils (%) (Auto) 1.6 Height (Feet): 5 Height (Inches): 4.00 Weight (Pounds): 156 General Appearance: WD/WN, alert, confused Neck: supple Cardiovascular: normal rate, regular rhythm Respiratory/Chest: chest wall non-tender, lungs clear, normal breath sounds, no respiratory distress Abdomen: normal bowel sounds, non tender, soft, no organomegaly Edema: no edema noted Arm (L), no edema noted Arm (R), no edema noted Leg (L), no edema noted Leg (R), no edema noted Pedal (L), no edema noted Pedal (R), no edema noted 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
--- NOTE | 2020-02-10 11:59 | NUR ---
CASE MANAGEMENT: REVIEW 02/10/20 SI:INTRACTABLE VOMITING . EPISODE CYCLIC VOMITING . UTI . GI BLEED 98.7 78 18 133/74 96% ON RA H/H 11.8/35.7 IS: IV NS@75ML/HR MIDODRINE PO BID AMITIZA PO BID IV PROTONIX QD LINACLOTIDE PO QAC LOPRESSOR PO BID IMDUR PO QD ASA PO QD HEPARIN SQ BID LIPITOR PO QHS \4E MED SURG UNIT DCP: HOME WHEN STABLE PLAN: PICC LINE PLACEMENT-OK TO USE CONT CLEAR LIQ DIET PATIENT CONTINUES TO VOMIT -NO EPISODE OF HEMATEMESIS
[2020-02-10 12:00] VITALS: BP 149/80
[2020-02-10 16:00] VITALS: BP 135/77
--- NOTE | 2020-02-10 18:44 | Progress Note ---
DATE: 02/10/2020 CARDIOLOGY PROGRESS NOTE SUBJECTIVE: The patient continues to have nausea and vomiting [id number]. She is on antiemetics. She has abdominal pain. No chest pain or shortness of breath. OBJECTIVE: VITAL SIGNS: Afebrile. Blood pressure 133/74, pulse 78, respirations 18. LUNGS: Clear. CARDIAC: Regular. Normal S1, S2 with a fourth heart sound. ABDOMEN: Tender diffusely mildly with no guarding or rebound. Bowel sounds are positive. EXTREMITIES: There is no edema. LABORATORY DATA: White count is 7.5, hemoglobin 11.8. IMPRESSION: 1. Refractory nausea and vomiting. 2. Ischemic cardiomyopathy. 3. Fibromyalgia. 4. Hypertensive heart disease. PLAN: 1. IV fluid hydration. 2. Hold statin therapy. 3. Continue anti-platelet therapy if no signs of bleeding. 4. Stable from cardiovascular standpoint to proceed with upper GI endoscopy with routine anesthesia. Jamar Pabon M.D. DR: EDY JOB#: [id number] CC:
--- NOTE | 2020-02-10 19:30 | NUR ---
NURSE NOTES: RECEIVED PATIENT FROM RODRIGUEZ COOPER. PATIENT IS AWAKE, AAOX4, ON ROOM AIR, NO ACUTE DISTRESS NOTED. LEFT UPPER ARM PICC LINE INTACT AND PATENT, RUNNING 1/2 NS @75ML/HR. DENIES PAIN AT THE MOMENT. BED IS LOCKED AND LOW, BED ALARMS ACTIVE, SIDE RAILS UPX2, AND CALL LIGHT IS WITHIN REACH. WILL CONTINUE TO MONITOR.
--- NOTE | 2020-02-10 19:34 | NUR ---
HAND-OFF: Report given to iron.
[2020-02-10 20:00] VITALS: BP 152/75
[2020-02-10] MEDS: Dyna-Hex 2% Top Sol 2oz TOPIC SCH (21:46)
--- NOTE | 2020-02-10 21:46 | General Progress Note ---
Assessment/Plan Status: stable, progressing Assessment/Plan: Assessment - Upper GI Bleed, suspect MW tear -- anemia - persistent nausea - cyclic N/V syndrome - h/o Hiatal hernia - suspect UGIB from MW tear, likely resolved - s/p EGD/Colon 04/27 - gastritis and diverticulosis - chronic constipation Recommendations - PPI - clears - anti emetics - Elavil - EGD tomorrow am, given continued nausea Subjective Allergies: Coded Allergies: ORANGE JUICE (Verified Allergy, Unknown, 06/25/14) Subjective above noted no further hematemesis but continues to have nausea poor PO intake no BM Objective Last 24 Hour Vital Signs Date Time Temp Pulse Resp B/P (MAP) Pulse Ox O2 Delivery O2 Flow Rate FiO2 02/10/20 16:00 98.5 79 19 135/77 (96) 95 02/10/20 12:00 98.8 66 18 149/80 (103) 95 02/10/20 09:18 78 133/74 02/10/20 09:18 133/74 02/10/20 09:00 Room Air 02/10/20 08:00 98.7 78 18 133/74 (93) 96 02/10/20 04:00 98.2 81 18 128/80 (96) 96 02/10/20 00:00 98.9 82 18 138/77 (97) Intake and Output 02/09/20 02/10/20 19:00 07:00 Intake Total 990 ml 1380 ml Output Total 950 ml Balance 990 ml 430 ml Intake Oral 240 ml 480 ml IV Total 750 ml 900 ml Output Urine Total 950 ml # Voids 2 2 Laboratory Tests 02/10/20 04:52: White Blood Count 7.5, Red Blood Count 4.36, Hemoglobin 11.8L, Hematocrit 35.7L , Mean Corpuscular Volume 82, Mean Corpuscular Hemoglobin 27.1, Mean Corpuscular Hemoglobin Concent 33.0, Red Cell Distribution Width 12.0, Platelet Count 299, Mean Platelet Volume 5.0L, Neutrophils (%) (Auto) 60.9, Lymphocytes ( %) (Auto) 30.8, Monocytes (%) (Auto) 4.9, Eosinophils (%) (Auto) 1.9, Basophils (%) (Auto) 1.6 Height (Feet): 5 Height (Inches): 4.00 Weight (Pounds): 156 Objective Thin AA woman NCAT RR abd soft flat mild TTP no edema non focal Kim Varghese MD Feb 10, 2020 21:46
[2020-02-11] VITALS (9 sets, daily range): BP systolic 125–168; BP diastolic 70–90
[2020-02-11] MEDS: Linaclotide 72mcg ORAL SCH (06:47)
[2020-02-11 07:20] LABS: BASOPHILS % (AUTO) 1.2 % (0.0-2.0); EOSINOPHILS % (AUTO) 3.1 % (0.0-3.0); HEMOGLOBIN 12.4 G/DL (12.0-16.0); LYMPHOCYTES % (AUTO) 24.5 % (20.0-45.0); MEAN CORPUSCULAR VOLUME 80 FL (80-99); MONOCYTES % (AUTO) 8.7 % (1.0-10.0); NEUTROPHILS % (AUTO) 62.5 % (45.0-75.0); PLATELET COUNT 289 K/UL (150-450)
--- NOTE | 2020-02-11 07:33 | General Progress Note ---
Assessment/Plan Problem List: (1) cyclical vomiting, uti and hypertension (2) GIB (gastrointestinal bleeding) ICD Codes: K92.2 - Gastrointestinal hemorrhage, unspecified SNOMED: 51921730 (3) Dehydration ICD Codes: E86.0 - Dehydration SNOMED: 97770644 (4) Intractable nausea and vomiting ICD Codes: R11.10 - Vomiting, unspecified SNOMED: 634220056 (5) CAD (coronary artery disease) ICD Codes: I25.10 - Atherosclerotic heart disease of [place] coronary artery without angina pectoris SNOMED: 21864230 (6) Hypertension ICD Codes: I10 - Essential (primary) hypertension SNOMED: 16414534 Status: stable, progressing Assessment/Plan: Continue IV hydration. IV antiemetics and IV pain medications as needed. Continue IV PPI. monitor h/h. blood pressure treatment per cardiology. Cautious antiplatelet therapy. CT reviewed- negative endoscopy today Subjective ROS Limited/Unobtainable: No Constitutional: Reports: malaise, weakness HEENT: Reports: no symptoms Cardiovascular: Reports: no symptoms Respiratory: Reports: no symptoms Gastrointestinal/Abdominal: Reports: abdominal pain, nausea, vomiting Genitourinary: Reports: no symptoms Neurologic/Psychiatric: Reports: no symptoms Endocrine: Reports: no symptoms Hematologic/Lymphatic: Reports: no symptoms Allergies: Coded Allergies: ORANGE JUICE (Verified Allergy, Unknown, 06/25/14) All Systems: reviewed and negative except above Subjective better today. no vomiting last night. pain better controlled. resting. d/w night rn. bp controlled. no fever or cough. Objective Last 24 Hour Vital Signs Date Time Temp Pulse Resp B/P (MAP) Pulse Ox O2 Delivery O2 Flow Rate FiO2 02/11/20 04:00 98.1 95 20 148/89 (108) 98 02/11/20 00:00 98.4 88 18 129/83 (98) 98 02/10/20 21:46 90 152/75 02/10/20 21:00 Room Air 02/10/20 20:00 98.5 90 18 152/75 (100) 94 02/10/20 16:00 98.5 79 19 135/77 (96) 95 02/10/20 12:00 98.8 66 18 149/80 (103) 95 02/10/20 09:18 78 133/74 02/10/20 09:18 133/74 02/10/20 09:00 Room Air 02/10/20 08:00 98.7 78 18 133/74 (93) 96 Intake and Output 02/10/20 02/11/20 19:00 07:00 Intake Total 1080 ml 1080 ml Output Total 600 ml 820 ml Balance 480 ml 260 ml Intake Oral 480 ml 480 ml IV Total 600 ml 600 ml Output Urine Total 600 ml 820 ml # Voids 2 Laboratory Tests 02/11/20 06:00: White Blood Count [Pending], Red Blood Count [Pending], Hemoglobin [Pending], Hematocrit [Pending], Mean Corpuscular Volume [Pending], Mean Corpuscular Hemoglobin [Pending], Mean Corpuscular Hemoglobin Concent [Pending], Red Cell Distribution Width [Pending], Platelet Count [Pending], Mean Platelet Volume [ Pending], Neutrophils (%) (Auto) [Pending], Lymphocytes (%) (Auto) [Pending], Monocytes (%) (Auto) [Pending], Eosinophils (%) (Auto) [Pending], Basophils (%) (Auto) [Pending], Sodium Level [Pending], Potassium Level [Pending], Chloride Level [Pending], Carbon Dioxide Level [Pending], Blood Urea Nitrogen [Pending], Creatinine [Pending], Estimat Glomerular Filtration Rate [Pending], Glucose Level [Pending], Calcium Level [Pending], Magnesium Level [Pending], Total Bilirubin [Pending], Aspartate Amino Transf (AST/SGOT) [Pending], Alanine Aminotransferase (ALT/SGPT) [Pending], Alkaline Phosphatase [Pending], Total Protein [Pending], Albumin [Pending], Globulin [Pending] Height (Feet): 5 Height (Inches): 4.00 Weight (Pounds): 156 Objective General Appearance: WD/WN, alert, confused Neck: supple Cardiovascular: normal rate, regular rhythm Respiratory/Chest: chest wall non-tender, lungs clear, normal breath sounds, no respiratory distress Abdomen: normal bowel sounds, non tender, soft, no organomegaly Edema: no edema noted Arm (L), no edema noted Arm (R), no edema noted Leg (L), no edema noted Leg (R), no edema noted Pedal (L), no edema noted Pedal (R), no edema noted Generalized Neurologic: financial accountant II-XII grossly normal, alert, oriented x 3 Sudhakar Conti MD Feb 11, 2020 07:32
[2020-02-11 07:37] LABS: ALANINE AMINOTRANSFERASE 15 U/L (12-78); ALBUMIN 3.2 G/DL (3.4-5.0); ALBUMIN/GLOBULIN RATIO 0.9 (1.0-2.7); ALKALINE PHOSPHATASE 110 U/L (46-116); ANION GAP 13 mmol/L (5-15); ASPARTATE AMINO TRANSFERASE 30 U/L (15-37); BILIRUBIN,TOTAL 0.4 MG/DL (0.2-1.0); BLOOD UREA NITROGEN 10 mg/dL (7-18); CALCIUM 8.8 MG/DL (8.5-10.1); CARBON DIOXIDE 23 MMOL/L (21-32); CHLORIDE 101 MMOL/L (98-107); CREATININE 0.7 MG/DL (0.55-1.30); POTASSIUM 3.6 MMOL/L (3.5-5.1); SODIUM 137 MMOL/L (136-145)
--- NOTE | 2020-02-11 07:55 | NUR ---
HAND-OFF: Report given to RODRIGUEZ Jolly.
--- NOTE | 2020-02-11 08:03 | NUR ---
NURSE NOTES: received report from Jacque,RN. patient in bed. A&Ox4, verbally responsive. no respiratory distress noted. PICC line 3lumen on left upper arm. running 1/2@75/hr. NPO for endoscopy by DR. Varghese. bed in the lowest position and locked. call light within reach. will continue to provide plan of care.
[2020-02-11] MEDS: Imdur 30mg tab ORAL SCH (09:00)
[2020-02-11] MEDS: Aspirin Baby 81mg ORAL SCH (09:00)
[2020-02-11] MEDS: Pantoprazole Inj IVP SCH (09:00)
[2020-02-11] MEDS: Amitiza 24mcg cap ORAL SCH ×2 (09:00→17:36)
[2020-02-11] MEDS: Heparin 5000 units/ml inj SUBQ SCH ×2 (09:00→20:57)
--- NOTE | 2020-02-11 09:44 | NUR ---
RD ASSESSMENT & RECOMMENDATIONS SEE CARE ACTIVITY FOR COMPLETE ASSESSMENT DAILY ESTIMATED NEEDS: Needs based on Cardiac 59.5kg abw 25-30 kcals/kg 2845-6530 total kcals 1-1.2 g protein/kg 60-71 g total protein 25-30 mL/kg 1302-7763 total fluid mLs NUTRITION DIAGNOSIS: Altered GI fxn r/t cyclic vomiting syndrome as evidenced by pt adm w/ N/V, on CLD w/ poor intake and emesis, now NPO for pending EGD. PO DIET RECOMMENDATIONS: CLD as able-> advance to BLAND + Ensure Clear TID ADDITIONAL RECOMMENDATIONS: 1) Rec HgA1C 2) Add D5 w/ poor intake and emesis, pt hypoglycemic this morning 3) Obtain a standing weight as able 4) Lytes daily
--- NOTE | 2020-02-11 10:22 | General Progress Note ---
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 - h/o Hiatal hernia - suspect UGIB from MW tear, likely resolved - s/p EGD/Colon 04/27 - gastritis and diverticulosis - chronic constipation - on Linzess and amitiza Recommendations - PPI / H2B - NPO - anti emetics - Elavil - EGD this am - Monitor BM pattern Subjective Allergies: Coded Allergies: ORANGE JUICE (Verified Allergy, Unknown, 06/25/14) Subjective above noted no further hematemesis but continues to have nausea and near heaves H&H now stabilizing Objective Last 24 Hour Vital Signs Date Time Temp Pulse Resp B/P (MAP) Pulse Ox O2 Delivery O2 Flow Rate FiO2 02/11/20 04:00 98.1 95 20 148/89 (108) 98 02/11/20 00:00 98.4 88 18 129/83 (98) 98 02/10/20 21:46 90 152/75 02/10/20 21:00 Room Air 02/10/20 20:00 98.5 90 18 152/75 (100) 94 02/10/20 16:00 98.5 79 19 135/77 (96) 95 02/10/20 12:00 98.8 66 18 149/80 (103) 95 Intake and Output 02/10/20 02/11/20 19:00 07:00 Intake Total 1080 ml 1080 ml Output Total 600 ml 820 ml Balance 480 ml 260 ml Intake Oral 480 ml 480 ml IV Total 600 ml 600 ml Output Urine Total 600 ml 820 ml # Voids 2 Laboratory Tests 02/11/20 06:00: White Blood Count 7.0, Red Blood Count 4.50, Hemoglobin 12.4, Hematocrit 36.0L, Mean Corpuscular Volume 80, Mean Corpuscular Hemoglobin 27.5, Mean Corpuscular Hemoglobin Concent 34.4, Red Cell Distribution Width 12.0, Platelet Count 289, Mean Platelet Volume 5.4L, Neutrophils (%) (Auto) 62.5, Lymphocytes (%) (Auto) 24.5, Monocytes (%) (Auto) 8.7, Eosinophils (%) (Auto) 3.1H, Basophils (%) (Auto ) 1.2, Sodium Level 137, Potassium Level 3.6, Chloride Level 101, Carbon Dioxide Level 23, Anion Gap 13, Blood Urea Nitrogen 10, Creatinine 0.7, Estimat Glomerular Filtration Rate > 60, Glucose Level 58L, Calcium Level 8.8, Magnesium Level 1.7L, Total Bilirubin 0.4, Aspartate Amino Transf (AST/SGOT) 30 , Alanine Aminotransferase (ALT/SGPT) 15, Alkaline Phosphatase 110, Total Protein 6.6, Albumin 3.2L, Globulin 3.4, Albumin/Globulin Ratio 0.9L Height (Feet): 5 Height (Inches): 4.00 Weight (Pounds): 156 Objective Thin AA woman NCAT RR abd soft flat mild TTP no edema non focal Kim Varghese MD Feb 11, 2020 10:22
--- NOTE | 2020-02-11 10:24 | Pre-Procedure Note/Attestation ---
Pre-Procedure Note/Attestation Complete Prior to Procedure Planned Procedure: not applicable Procedure Narrative: EGD Indications for Procedure Pre-Operative Diagnosis: GI Bleed Attestation I attest that I discussed the nature of the procedure; its benefits; risks and complications; and alternatives (and the risks and benefits of such alternatives ), prior to the procedure, with the patient (or the patient's legal metals sales representative). I attest that, if there was a reasonable possibility of needing a blood transfusion, the patient (or the patient's legal metals sales representative) was given the [facility] standardized written summary, pursuant to the [place] Blood Safety Act ([place] Health and Safety Code # 1645, as amended). I attest that I re-evaluated the patient just prior to the surgery and that there has been no change in the patient's H&P, except as documented below: Kim Varghese MD Feb 11, 2020 10:24
--- NOTE | 2020-02-11 10:49 | NUR ---
NURSE NOTES: patient left unit to GL lab for endoscopy. picc line on left upper arm. flushed. intact. consent signed in the chart. a&Ox4, no respiratory distress noted. stable.
--- NOTE | 2020-02-11 10:55 | Anethesia Preoperative Eval ---
Anesthesia Pre-op PMH/ROS General Date of Evaluation: Feb 11, 2020 Time of Evaluation: 10:52 Anesthesiologist: Leandro ASA Score: ASA 2 Mallampati Score Class I : Soft palate, uvula, fauces, pillars visible Class II: Soft palate, uvula, fauces visible Class III: Soft palate, base of uvula visible Class IV: Only hard plate visible Mallampati Classification: Class II Surgeon: Nohelia Diagnosis: ABdominal pain Surgical Procedure: EGD Anesthesia History: none Family History: no anesthesia problems Allergies: Coded Allergies: ORANGE JUICE (Verified Allergy, Unknown, 06/25/14) Patient NPO?: Yes NPO Date: Feb 11, 2020 NPO Time: 0000 Past Medical History Cardiovascular: Reports: HTN, CAD; Denies: [place], valve dz, arrhythmia, other Pulmonary: Denies: asthma, COPD, JEFF, other Gastrointestinal/Genitourinary: Reports: GERD; Denies: CRI, ESRD, other Neurologic/Psychiatric: Reports: depression/anxiety; Denies: dementia, CVA, TIA, other Endocrine: Reports: hypothyroidism; Denies: DM, steroids, other HEENT: Denies: cataract (L), cataract (R), glaucoma, SQUAXIN (L), SQUAXIN (R), other Hematology/Immune: Reports: anemia; Denies: DVT, bleeding disorder, other Musculoskeletal/Integumentary: Reports: OA; Denies: RA, DJD, DDD, edema, other PMH Narrative: as above PSxH Narrative: see H&P Anesthesia Pre-op Phys. Exam Physician Exam Last Vital Signs Date Time Temp Pulse Resp B/P (MAP) Pulse Ox O2 Delivery O2 Flow Rate FiO2 02/11/20 09:00 Room Air 02/11/20 08:00 98.0 86 17 149/81 (103) 98 Constitutional: NAD Neurologic: CN 2-12 intact Cardiovascular: RRR, no M/R/G Respiratory: CTA Gastrointestinal: S/NT/ND Airway Exam Mallampati Score: Class II MO: full Neck: stiff ROM: full Teeth: missing Dentures: no upper, no lower Anesthesia Pre-op A/P Labs Hematology Test 02/11/20 06:00 White Blood Count 7.0 K/UL (4.8-10.8) Red Blood Count 4.50 M/UL (4.20-5.40) Hemoglobin 12.4 G/DL (12.0-16.0) Hematocrit 36.0 % (37.0-47.0) L Mean Corpuscular Volume 80 FL (80-99) Mean Corpuscular Hemoglobin 27.5 PG (27.0-31.0) Mean Corpuscular Hemoglobin Concent 34.4 G/DL (32.0-36.0) Red Cell Distribution Width 12.0 % (11.6-14.8) Platelet Count 289 K/UL (150-450) Mean Platelet Volume 5.4 FL (6.5-10.1) L Neutrophils (%) (Auto) 62.5 % (45.0-75.0) Lymphocytes (%) (Auto) 24.5 % (20.0-45.0) Monocytes (%) (Auto) 8.7 % (1.0-10.0) Eosinophils (%) (Auto) 3.1 % (0.0-3.0) H Basophils (%) (Auto) 1.2 % (0.0-2.0) Chemistry Test 02/11/20 06:00 Sodium Level 137 MMOL/L (136-145) Potassium Level 3.6 MMOL/L (3.5-5.1) Chloride Level 101 MMOL/L (98-107) Carbon Dioxide Level 23 MMOL/L (21-32) Anion Gap 13 mmol/L (5-15) Blood Urea Nitrogen 10 mg/dL (7-18) Creatinine 0.7 MG/DL (0.55-1.30) Estimat Glomerular Filtration Rate > 60 mL/min (>60) Glucose Level 58 MG/DL (74-106) L Calcium Level 8.8 MG/DL (8.5-10.1) Magnesium Level 1.7 MG/DL (1.8-2.4) L Total Bilirubin 0.4 MG/DL (0.2-1.0) Aspartate Amino Transf (AST/SGOT) 30 U/L (15-37) Alanine Aminotransferase (ALT/SGPT) 15 U/L (12-78) Alkaline Phosphatase 110 U/L (46-116) Total Protein 6.6 G/DL (6.4-8.2) Albumin 3.2 G/DL (3.4-5.0) L Globulin 3.4 g/dL Albumin/Globulin Ratio 0.9 (1.0-2.7) L Risk Assessment & Plan Assessment: ASA 3 Plan: MAC Status Change Before Surgery: Walt Borden MD Feb 11, 2020 10:55
[2020-02-11] MEDS ORDERED: fentaNYL 100 mcg/2 mL IV ONE (11:00)
[2020-02-11] MEDS ORDERED: Propofol 200mg/20ml IV ONE (11:00)
[2020-02-11] MEDS ORDERED: NS 500ML IVPB ONE (11:10)
--- NOTE | 2020-02-11 11:33 | Immediate Post-Op Evaluation ---
Immediate Post-Op Evalulation Immediate Post-Op Evalulation Procedure: EGD with Bx Date of Evaluation: Feb 11, 2020 Time of Evaluation: 11:32 IV Fluids: 200 Blood Products: none Estimated Blood Loss: none Urinary Output: none Blood Pressure Systolic: 125 Blood Pressure Diastolic: 74 Pulse Rate: 86 Respiratory Rate: 20 O2 Sat by Pulse Oximetry: 98 Temperature (Fahrenheit): 97.6 Pain Score (1-10): 1 Nausea: No Vomiting: No Complications none Patient Status: awake, patent, none Hydration Status: adequate Walt Reeves MD Feb 11, 2020 11:33
--- NOTE | 2020-02-11 12:04 | 48 Hour Post Anesthesia Eval ---
Post Anesthesia Evaluation Procedure: EGD with Bx Date of Evaluation: Feb 11, 2020 Time of Evaluation: 12:03 Blood Pressure Systolic: 128 0: 72 Pulse Rate: 68 Respiratory Rate: 20 Temperature (Fahrenheit): 97.6 O2 Sat by Pulse Oximetry: 98 Airway: patent Nausea: No Vomiting: No Pain Intensity: 1 Hydration Status: adequate Cardiopulmonary Status: stable Mental Status/LOC: patient returned to baseline Follow-up Care/Observations: n/a Post-Anesthesia Complications: none Follow-up care needed: N/A Walt Reeves MD Feb 11, 2020 12:04
--- NOTE | 2020-02-11 12:08 | NUR ---
NURSE NOTES: patient was transferred back to unit after endoscopy with stable condition. A&Ox4. verbally responsive. no respiratory distress noted.
--- NOTE | 2020-02-11 12:49 | NUR ---
CASE MANAGEMENT:REVIEW SI;S/R EGD W/BIOPSY TODAY. CYCLICAL VOMITING. GI BLEED. INTRACTABLE NAUSEA/VOMITING 98.4 108 20 152/75 94% ON RA BG 58 IS;IVF NS @ 75 ML/HR PEPCID IV BID ZOFRAN IV Q4 HRS PRN AMITIZA PO BID DILAUDID IV Q4 HRS PRN MED SURG STATUS DCP;FROM HOME PLAN;CONTINUE IV HYDRATION IV ANTIEMETICS IV PPI CLEAR LIQUID DIET
--- NOTE | 2020-02-11 19:21 | NUR ---
HAND-OFF: Report given to RODRIGUEZ Zhu.
--- NOTE | 2020-02-11 20:09 | NUR ---
NURSE NOTES: Patient in bed, awake, alert and verbally responsive. Able to make needs known. Respiration is even and unlabored. No complaint of pain or discomfort noted at this time. Skin is warm and dry to touch. Noted with picc line, iv fluid is infusing. Abdomen is soft. NO s/s of emesis at this time. Tolerating clear liquid at this time. Call light is at the bedside. Will continue plan of care.
[2020-02-11] MEDS: Dyna-Hex 2% Top Sol 2oz TOPIC SCH (20:56)
--- NOTE | 2020-02-11 22:21 | Endoscopy Procedure Note ---
Endoscopy Procedure Note General Indication for Procedure: UGIB Procedures Performed: EGD Operative Findings/Diagnosis: erosive duodenitis, s/p antrum bx Specimen: yes Pt Tolerated Procedure Well: Yes Estimated Blood Loss: none Anesthesia Anesthesiologist: Austin Toribio Anesthesia: MAC Inserted Devices Implant(s) used?: No GI Core Measures 50 yrs or older w/o bx or poly: Not Applicable 10yrs. F/U recommended: Not Applicable Kim Varghese MD Feb 11, 2020 22:21
--- NOTE | 2020-02-11 22:25 | Brief Operative Note ---
Immediate Post Operative Note Operative Note Chief Complaint: Hematemesis Pre-op Diagnosis: GI Bleed Procedure: EGD/Bx Post-op Diagnosis: erosive duodenitis Surgeon: alia Specimen: yes Complications: none Condition: stable Fluids: given Estimated Blood Loss: none Drains: none Implant(s) used?: No Kim Varghese MD Feb 11, 2020 22:25
--- NOTE | 2020-02-12 01:30 | NUR ---
NURSE NOTES: Patient was given PRN pain medication for pain level 9/10. Reassessed. No adverse reaction noted.
[2020-02-12 04:00] VITALS: BP 142/83
--- NOTE | 2020-02-12 05:29 | Progress Note ---
DATE: 02/11/2020 CARDIOLOGY PROGRESS NOTE SUBJECTIVE: No vomiting last night. Endoscopy today revealed erosive gastritis. OBJECTIVE: VITAL SIGNS: Blood pressure parameters somewhat labile. Blood pressure max 148/89, heart rate 95, respiratory rate 20. LUNGS: Clear. CARDIAC: Regular. Normal S1 and S2 with a fourth heart sound. ABDOMEN: With mild diffuse tenderness in the upper quadrant. EXTREMITIES: No edema. IMPRESSION: 1. Erosive gastritis. 2. Hypertensive heart disease. 3. Coronary artery disease. 4. Cyclical vomiting. 5. Hypovolemia. 6. Dehydration. PLAN: 1. IV fluids until vomiting better controlled and oral intake adequate. 2. Continue baseline cardiovascular regimen. 3. Await biopsy results. 4. Anti-reflux and proton pump inhibitor for GI. 5. Follow up laboratory studies and electrolyte evaluation. Jamar Pabon M.D. DR: CINTIA JOB#: [id number] CC:
[2020-02-12] MEDS: Linaclotide 72mcg ORAL SCH (06:20)
--- NOTE | 2020-02-12 07:20 | NUR ---
HAND-OFF: Report given to RODRIGUEZ Chavez.
--- NOTE | 2020-02-12 07:37 | NUR ---
NURSE NOTES: received report from Marko, patient in bed. sleeping. no respiratory distress noted on room air. no facial grimacing. PIcc on left upper arm running 1/2ns@75/hr. bed in the lowest position and locked. call light within reach. will continue to provide plan of care.
[2020-02-12 08:00] VITALS: BP 144/76
[2020-02-12] MEDS: Amitiza 24mcg cap ORAL SCH ×2 (09:01→17:31)
[2020-02-12] MEDS: Pantoprazole Inj IVP SCH (09:01)
[2020-02-12] MEDS: Imdur 30mg tab ORAL SCH (09:02)
[2020-02-12] MEDS: Aspirin Baby 81mg ORAL SCH (09:02)
--- NOTE | 2020-02-12 09:03 | General Progress Note ---
Assessment/Plan Status: stable, progressing Assessment/Plan: Assessment - Upper GI Bleed, suspect MW tear -- anemia - persistent nausea - cyclic N/V syndrome - h/o Hiatal hernia - suspect UGIB from MW tear, likely resolved - s/p EGD/Colon 04/27 - gastritis and diverticulosis - chronic constipation Recommendations - PPI - anti emetics - Elavil - s/p EGD yesterday -will fu Subjective ROS Limited/Unobtainable: Yes Allergies: Coded Allergies: ORANGE JUICE (Verified Allergy, Unknown, 06/25/14) Subjective feeling better Objective Last 24 Hour Vital Signs Date Time Temp Pulse Resp B/P (MAP) Pulse Ox O2 Delivery O2 Flow Rate FiO2 02/12/20 08:00 98.4 75 18 144/76 (98) 98 02/12/20 04:00 98.6 89 18 142/83 (102) 95 02/11/20 23:51 98.5 79 18 136/70 (92) 96 02/11/20 21:00 Room Air 02/11/20 20:56 87 140/83 02/11/20 20:00 98.8 87 18 140/83 (102) 96 02/11/20 16:00 98.6 87 18 168/90 (116) 97 02/11/20 12:04 68 20 98 02/11/20 11:40 82 15 130/73 95 Room Air 02/11/20 11:35 108 20 125/74 94 Room Air 02/11/20 11:33 86 20 98 02/11/20 11:30 98.1 92 20 139/76 97 Nasal Cannula 3 Intake and Output 02/11/20 02/12/20 19:00 07:00 Intake Total 975 ml 1595 ml Output Total 0 ml 1900 ml Balance 975 ml -305 ml Intake Oral 720 ml IV Total 975 ml 375 ml Other 500 ml Output Urine Total 1200 ml Stool Total 700 ml Estimated Blood Loss 0 ml # Voids 2 # Bowel Movements 1 Height (Feet): 5 Height (Inches): 3.00 Weight (Pounds): 156 General Appearance: alert EENT: normal ENT inspection Neck: supple Cardiovascular: normal rate Respiratory/Chest: decreased breath sounds Abdomen: normal bowel sounds, non tender, soft Extremities: non-tender Rosales James MD Feb 12, 2020 09:03
[2020-02-12] MEDS: Heparin 5000 units/ml inj SUBQ SCH ×2 (09:09→20:49)
--- NOTE | 2020-02-12 11:23 | General Progress Note ---
Assessment/Plan Problem List: (1) cyclical vomiting, uti and hypertension (2) GIB (gastrointestinal bleeding) ICD Codes: K92.2 - Gastrointestinal hemorrhage, unspecified SNOMED: 54948626 (3) Dehydration ICD Codes: E86.0 - Dehydration SNOMED: 32683316 (4) Intractable nausea and vomiting ICD Codes: R11.10 - Vomiting, unspecified SNOMED: 797796499 (5) CAD (coronary artery disease) ICD Codes: I25.10 - Atherosclerotic heart disease of [place] coronary artery without angina pectoris SNOMED: 75129585 (6) Hypertension ICD Codes: I10 - Essential (primary) hypertension SNOMED: 50967953 Status: stable, progressing Assessment/Plan: Continue IV hydration. IV antiemetics and IV pain medications as needed. Continue IV PPI. monitor h/h. blood pressure treatment per cardiology. Cautious antiplatelet therapy. CT reviewed- negative endoscopy results pending Subjective ROS Limited/Unobtainable: No Constitutional: Reports: malaise, weakness HEENT: Reports: no symptoms Cardiovascular: Reports: no symptoms Respiratory: Reports: no symptoms Gastrointestinal/Abdominal: Reports: abdominal pain, nausea Genitourinary: Reports: no symptoms Neurologic/Psychiatric: Reports: no symptoms Endocrine: Reports: no symptoms Hematologic/Lymphatic: Reports: no symptoms Allergies: Coded Allergies: ORANGE JUICE (Verified Allergy, Unknown, 06/25/14) All Systems: reviewed and negative except above Subjective Patient is status post endoscopy. Results currently pending. Patient continues to have intermittent abdominal pain and nausea. But no vomiting. She is anxious to eat. She remains on IV fluids IV pain medications and antiemetics. Objective Last 24 Hour Vital Signs Date Time Temp Pulse Resp B/P (MAP) Pulse Ox O2 Delivery O2 Flow Rate FiO2 02/12/20 09:02 144/76 02/12/20 09:01 75 144/76 02/12/20 09:00 Room Air 02/12/20 08:00 98.4 75 18 144/76 (98) 98 02/12/20 04:00 98.6 89 18 142/83 (102) 95 02/11/20 23:51 98.5 79 18 136/70 (92) 96 02/11/20 21:00 Room Air 02/11/20 20:56 87 140/83 02/11/20 20:00 98.8 87 18 140/83 (102) 96 02/11/20 16:00 98.6 87 18 168/90 (116) 97 02/11/20 12:04 68 20 98 02/11/20 11:40 82 15 130/73 95 Room Air 02/11/20 11:35 108 20 125/74 94 Room Air 02/11/20 11:33 86 20 98 02/11/20 11:30 98.1 92 20 139/76 97 Nasal Cannula 3 Intake and Output 02/11/20 02/12/20 19:00 07:00 Intake Total 975 ml 1595 ml Output Total 0 ml 1900 ml Balance 975 ml -305 ml Intake Oral 720 ml IV Total 975 ml 375 ml Other 500 ml Output Urine Total 1200 ml Stool Total 700 ml Estimated Blood Loss 0 ml # Voids 2 # Bowel Movements 1 Height (Feet): 5 Height (Inches): 3.00 Weight (Pounds): 156 Objective General Appearance: WD/WN, alert, confused Neck: supple Cardiovascular: normal rate, regular rhythm Respiratory/Chest: chest wall non-tender, lungs clear, normal breath sounds, no respiratory distress Abdomen: normal bowel sounds, non tender, soft, no organomegaly Edema: no edema noted Arm (L), no edema noted Arm (R), no edema noted Leg (L), no edema noted Leg (R), no edema noted Pedal (L), no edema noted Pedal (R), no edema noted Generalized Neurologic: custodian blood bank II-XII grossly normal, alert, oriented x 3 Sudhakar Conti MD Feb 12, 2020 11:23
[2020-02-12 12:00] VITALS: BP 126/66
[2020-02-12 16:00] VITALS: BP 127/69
--- NOTE | 2020-02-12 19:05 | NUR ---
NURSE NOTES: received patient on bed, awake & alert. verbally responsive. no sob. no complaints of pain and vomiting at the moment. with PICC LINE on the ALVARO, triple lumen, 1 lumen is currently running 1/2 ns @ 75 ml/hr. reiterated to call or ask for assistance. bed locked and in lowest position.call light and light button within easy reach. will continue plan of care.
--- NOTE | 2020-02-12 19:40 | NUR ---
HAND-OFF: Report given to RODRIGUEZ Bergeron.
[2020-02-12 20:00] VITALS: BP 119/69
[2020-02-12] MEDS: Dyna-Hex 2% Top Sol 2oz TOPIC SCH (20:39)
--- NOTE | 2020-02-12 23:15 | Progress Note ---
DATE: 02/12/2020 CARDIOLOGY PROGRESS NOTE SUBJECTIVE: The patient was seen this afternoon. She was very fatigued and sleeping. She has had intermittent abdominal pain and nausea, but no vomiting. OBJECTIVE: VITAL SIGNS: Blood pressure 144/76, pulse 75, respirations 18. LUNGS: Clear. CARDIAC: Regular. ABDOMEN: Slightly distended, but soft. EXTREMITIES: No edema. IMPRESSION: 1. Gastritis. 2. Vomiting. 3. Fibromyalgia. 4. Ischemic cardiomyopathy. 5. Hypertensive heart disease. 6. History of hyperlipidemia. PLAN: 1. Followup endoscopy pathology. 2. Continue hydration. 3. Advanced diet as able. 4. Continue antiemetics and pain medications with frequency based on clinical parameters. Jamar Pabon M.D. DR: CINTIA JOB#: [id number] CC:
[2020-02-13] VITALS: BP 120/71
[2020-02-13 04:00] VITALS: BP 115/76
[2020-02-13] MEDS: Linaclotide 72mcg ORAL SCH (06:15)
--- NOTE | 2020-02-13 07:10 | NUR ---
HAND-OFF: Report given to dominick sierra.
--- NOTE | 2020-02-13 07:25 | NUR ---
NURSE NOTES: received report from RODRIGUEZ Bergeron. patient in bed. A&Ox4, verbally responsive. no respiratory distress noted. pain on finger joints and abd. 4/10. got dilaudid 2mg IVP for pain at 0610. PICC line on left upper arm 3lumen intact running 1/2ns@75/hr. bed in the lowest position and locked. call light within reach. will continue to provide plan of care.
[2020-02-13 08:00] VITALS: BP 132/84
[2020-02-13] MEDS: Amitiza 24mcg cap ORAL SCH (08:17)
[2020-02-13] MEDS: Pantoprazole Inj IVP SCH (08:17)
[2020-02-13] MEDS: Aspirin Baby 81mg ORAL SCH (08:17)
[2020-02-13] MEDS: Imdur 30mg tab ORAL SCH (08:17)
[2020-02-13] MEDS: Heparin 5000 units/ml inj SUBQ SCH (08:17)
--- NOTE | 2020-02-13 09:29 | Discharge Summary ---
DATE OF ADMISSION: 02/07/2020 DATE OF DISCHARGE: 02/13/2020 ADMISSION DIAGNOSES: 1. GI bleed. 2. Intractable nausea and vomiting. 3. History of ischemic cardiomyopathy. 4. Hypertension. DISCHARGE DIAGNOSES: 1. GI bleed. 2. Intractable nausea and vomiting. 3. History of ischemic cardiomyopathy. 4. Hypertension. HOSPITAL COURSE: The patient was admitted with complaints of intractable nausea and vomiting. She had some hematemesis. Her hemoglobin remained relatively stable. She did trend down to around 12 from 14. She received IV proton pump inhibitor. GI and Cardiology evaluations were obtained. The patient underwent upper endoscopy. She had no further evidence of any bleeding. Her hemoglobin remained stable. On discharge, she was stable. DISCHARGE MEDICATIONS: Please see discharge medication list for discharge medications. DIET: Cardiac diet. ACTIVITY: Ad-osvaldo. FOLLOWUP: The patient will follow up in one to two weeks in the office. Sudhakar Conti M.D. DR: OTONIEL JOB#: [id number] CC:
--- NOTE | 2020-02-13 10:03 | General Progress Note ---
Assessment/Plan Status: stable, progressing Assessment/Plan: Assessment - Upper GI Bleed, suspect MW tear -- anemia - persistent nausea - cyclic N/V syndrome - h/o Hiatal hernia - suspect UGIB from MW tear, likely resolved - s/p EGD/Colon 04/27 - gastritis and diverticulosis - chronic constipation Recommendations - PPI - anti emetics - Elavil - s/p EGD on Friday -will fu Subjective Allergies: Coded Allergies: ORANGE JUICE (Verified Allergy, Unknown, 06/25/14) Subjective feeling better Objective Last 24 Hour Vital Signs Date Time Temp Pulse Resp B/P (MAP) Pulse Ox O2 Delivery O2 Flow Rate FiO2 02/13/20 09:00 Room Air 02/13/20 08:17 76 132/84 02/13/20 08:17 132/84 02/13/20 08:00 98.4 76 18 132/84 (100) 97 02/13/20 04:00 98.0 85 20 115/76 (89) 97 02/13/20 02:06 97.8 02/13/20 00:00 97.8 87 20 120/71 (87) 97 02/12/20 21:00 Room Air 02/12/20 21:00 Room Air 02/12/20 20:43 85 120/72 02/12/20 20:00 98.1 85 19 119/69 (86) 98 02/12/20 16:00 98.0 79 18 127/69 (88) 98 02/12/20 12:00 99.1 77 17 126/66 (86) 96 Intake and Output 02/12/20 02/13/20 19:00 07:00 Intake Total 900 ml 1600 ml Balance 900 ml 1600 ml Intake Oral 800 ml IV Total 900 ml Other 800 ml # Voids 2 Height (Feet): 5 Height (Inches): 3.00 Weight (Pounds): 156 General Appearance: alert EENT: normal ENT inspection Neck: supple Cardiovascular: normal rate Respiratory/Chest: decreased breath sounds Abdomen: normal bowel sounds, non tender, soft Extremities: non-tender Rosales James MD Feb 13, 2020 10:03
[2020-02-13 12:00] VITALS: BP 130/80
--- NOTE | 2020-02-13 15:31 | NUR ---
NURSE NOTES: patient wants go home today. she ate more than half of her lunch and has been feeling OK. no nause. no vomiting. notified Sushila Bergeron. and waiting for further order.
--- NOTE | 2020-02-13 15:45 | NUR ---
NURSE NOTES: received call from Dr. Conti and received order dc home today. removed PICC line upon discharge. order noted and carried out.
--- NOTE | 2020-02-13 16:44 | NUR ---
NURSE NOTES: patient dc home with fair condition. A&Ox4, verbally responsive. no respirator distress noted. no pain at this time. no nause no vomiting. given home medications that she brought upon admission. removed picc line on left upper arm. no bleeding noted. checked and counted belongings with patient. provided dc packet. obtained sign.
--- NOTE | 2020-02-13 16:54 | NUR ---
NURSE NOTES: RN assisted patient to the lobby. patient left hospital by son's car safely.
--- NOTE | 2020-02-14 03:15 | Progress Note ---
DATE: 02/13/2020 CARDIOLOGY PROGRESS NOTE SUBJECTIVE: Vomiting is under better control. No nausea is persisting. The patient has controlled pain now. OBJECTIVE: VITAL SIGNS: Blood pressure 132/84, pulse 76, respirations 18. LUNGS: Clear. CARDIAC: Regular, normal S1, S2 with a fourth heart sound. ABDOMEN: Soft, mild midepigastric tenderness. No guarding or rebound. No edema. IMPRESSION: 1. Gastritis. Possible Zakiya Garvin tear, diverticulosis, hiatal hernia. 2. Coronary artery disease. 3. Stable angina. 4. Hypertensive heart disease with controlled blood pressure. 5. Hyperlipidemia. 6. History of coronary stents. PLAN: 1. Resume baseline cardiovascular regimen. 2. Cautious use of anti-platelet therapy. 3. Anti-emetics. 4. Outpatient cardiovascular followup arranged. Jamar Pabon M.D. DR: PAXTON JOB#: [id number] CC:
== END 2020-02-13 16:53 | disposition home or self-care (01) | DRG 379 ==
LOC: 4E 21:48
PROC: 02HV33Z Insertion of Infusion Device into Superior Vena Cava, Percutaneous Approach (ICD-10-PCS; principal; 2020-02-08)
PROC: 0DB78ZX Excision of Stomach, Pylorus, Via Natural or Artificial Opening Endoscopic, Diagnostic (ICD-10-PCS; 2020-02-11)
DX: K29.81 Duodenitis with bleeding (principal); E86.0 Dehydration; R11.15 Cyclical vomiting syndrome unrelated to migraine; I11.9 Hypertensive heart disease without heart failure; I25.5 Ischemic cardiomyopathy; I25.118 Atherosclerotic heart disease of native coronary artery with other forms of angina pectoris; K29.71 Gastritis, unspecified, with bleeding; G89.29 Other chronic pain; M54.9 Dorsalgia, unspecified; I25.2 Old myocardial infarction; K22.6 Gastro-esophageal laceration-hemorrhage syndrome; I25.10 Atherosclerotic heart disease of native coronary artery without angina pectoris; Z95.5 Presence of coronary angioplasty implant and graft; M54.12 Radiculopathy, cervical region; M79.7 Fibromyalgia; E78.5 Hyperlipidemia, unspecified; K44.9 Diaphragmatic hernia without obstruction or gangrene; K57.90 Diverticulosis of intestine, part unspecified, without perforation or abscess without bleeding; Z87.891 Personal history of nicotine dependence; D64.9 Anemia, unspecified; K59.09 Other constipation; K29.61 Other gastritis with bleeding
CPT/HCPCS: 36415; 36569; 74176; 76937; 80053; 81001; 82150; 83690; 83735; 85025; 87086; 94003; 94150; J2405

== ENCOUNTER 2020-09-21 11:28 | Inpatient (IN) | payer MEDICARE, MEDICAID ==
[~2020-09-21] VITALS: Ht 162.6 cm; Wt 62.6 kg
[~2020-09-21 11:28] MED LIST changes: -ATORVASTATIN CA10 MG; +ATORVASTATIN CA10 MG PO; -BETHANECHOL CHL10 MG; +BETHANECHOL CHL10 MG PO; -METOPROLOL TART25 MG; +METOPROLOL TART25 MG PO
--- NOTE | 2020-09-21 12:45 | NUR ---
NURSE NOTES: Patient arrived on unit. Stable, AAOx4. Patient is gagging, no vomiting noted. Patient changed into gown. Paged Dr. Conti regarding admission orders, awaiting response. Patient oriented to room, call light, and unit. Patient instructed to use call light for assistance, verbalized understanding. Skin is c/d/i. Patient is in bed in locked and lowest position with call light within reach. All safety measures provided. All needs met at this time. Will continue to monitor.
--- NOTE | 2020-09-21 13:00 | NUR ---
NURSE NOTES: 22g IV inserted into right hand. patent, flushing, good blood return.
[2020-09-21] MEDS ORDERED: DiphenhydrAMINE 50mg/ml Inj IVP PRN (13:30)
[2020-09-21] MEDS: D5NS 1,000 ML IV SCH ×2 (14:38→23:23)
[2020-09-21 16:00] VITALS: BP 147/95
--- NOTE | 2020-09-21 16:13 | Diagnostic Imaging Report ---
Indication: Abdominal pain Technique: Spiral acquisitions obtained through the abdomen and pelvis. Patient given oral contrast. No IV contrast utilized, per referring physician request.. Multiplanar reconstructions were generated. Total dose length product 219 mGycm. CTDIvol(s) 4 mGy. Dose reduction achieved using automated exposure control Comparison: 02/08/2020 Findings: The appendix is normal. There is questionable subtle infiltration of the pericolonic fat adjacent to the ascending colon. While not evident on the prior study, similar findings are evident on an earlier exam of 04/16/2017. There are somewhat prominent regional lymph nodes in this area. There is extensive stubbs colonic diverticulosis. There is wall thickening of the sigmoid colon, likely on the basis of circular muscle hypertrophy related to the diverticulosis. No small bowel distention. No free or loculated intraperitoneal gas or fluid is evident. The distal esophagus, stomach, duodenum are unremarkable. Lack of IV contrast limits assessment of solid organs. The liver, gallbladder, bile ducts, pancreas, spleen, adrenals, kidneys are all unremarkable. No retroperitoneal or mesenteric mass or adenopathy. No pelvic mass or adenopathy. Included lung bases demonstrate posterior dependent atelectatic changes. The bones are unremarkable. Impression: Slight infiltration of the pericolonic fat adjacent to the ascending colon. This is suspicious for acute mild uncomplicated ascending diverticulitis. Extensive colonic diverticulosis elsewhere Wall thickening sigmoid colon is likely on the basis of circular muscle hypertrophy related to the above No other significant abnormality The CT scanner at [facility] is accredited by the [employer] and the scans are performed using protocols designed to limit radiation exposure to as low as reasonably achievable to attain images of sufficient resolution adequate for diagnostic evaluation.
[2020-09-21] MEDS: Imipramine 10mg tab ORAL SCH (18:07)
--- NOTE | 2020-09-21 18:29 | History and Physical Report ---
DATE OF ADMISSION: 09/21/2020 CHIEF COMPLAINT: Intractable nausea, vomiting. HISTORY OF PRESENT ILLNESS: The patient is a 70-year-old female, well known to me. She has a history of hypertension, ischemic cardiomyopathy, cyclic vomiting, cervical radiculopathy, who presented with complaints of 2 days of intractable nausea and vomiting. According to the patient, she was well until 2 days prior to admission when she developed severe abdominal pain, nausea, and vomiting. Symptoms are similar to prior episodes of her cyclic vomiting attacks. She denies any fevers or chills. No ill contacts. Denies any diarrhea. In light of her intractable nausea and vomiting, she is now admitted for further evaluation and care. PAST MEDICAL HISTORY: As above. PAST SURGICAL HISTORY: Neck surgery and cardiac catheterization and stent placement. CURRENT MEDICATIONS: Reconciled and reviewed. ALLERGIES: Oranges. FAMILY HISTORY: Significant for dementia and hypertension. SOCIAL HISTORY: Negative for tobacco, ethanol, or drugs. REVIEW OF SYSTEMS: GENERAL: No fevers or chills. HEENT: No headaches or visual changes. CARDIOPULMONARY: No chest pain or shortness of breath. GASTROINTESTINAL: Positive nausea, vomiting. No diarrhea. Positive abdominal pain. GENITOURINARY: No urgency or frequency. MUSCULOSKELETAL: No joint pain or swelling. NEUROLOGIC: No history of seizures. PHYSICAL EXAMINATION: VITAL SIGNS: Temperature 98, blood pressure 130/70, pulse 80, respirations 20. GENERAL: The patient is well developed, no apparent distress. HEENT: Head normocephalic, atraumatic. Sclerae anicteric. Oropharynx clear. NECK: Supple. There is no adenopathy. HEART: Regular rate and rhythm without murmurs, rubs, or gallops. LUNGS: Clear to auscultation bilaterally. ABDOMEN: Soft, nontender, nondistended. EXTREMITIES: No clubbing, cyanosis, or edema. LABORATORY DATA: Labs are pending. ASSESSMENT: This is a 70-year-old female with a history of hypertension, ischemic cardiomyopathy, cyclic vomiting, admitted with complaints of intractable nausea and vomiting, suspect due to cyclic vomiting. PLAN: NPO. IV fluids, IV antiemetics, IV pain medications as needed. Continue outpatient cardiac regimen. Continue PPI treatment. Continue tricyclic antidepressant. GI consultation will be obtained. Sudhakar Conti M.D. DR: EARNEST JOB#: [id number] CC:
--- NOTE | 2020-09-21 18:30 | NUR ---
NURSE NOTES: Patient still unable to urinate, awaiting UA collection.
--- NOTE | 2020-09-21 18:46 | NUR ---
NURSE NOTES: RN attempted IV placement unsuccessfully. Insurance Plan Specialist unable to draw blood at this time. Will endorse to next shift.
--- NOTE | 2020-09-21 19:22 | NUR ---
NURSE HAND-OFF: Important Events on Shift: pain management Patient Status: stable Diet: clear liquid Pending Orders: IV placement, blood draw Pending Results/Labs:n/a Pending MD notification:n/a Latest Vital Signs: Temperature 97.3 , Pulse 76 , B/P 147 /95 , Respiratory Rate 18 , O2 SAT 98 , , O2 Flow Rate . Vital Sign Comment: n/a Latest Gibbons Fall Score: 35 Fall Risk: Medium Risk Safety Measures: Call light Within Reach, Bed Alarm , Side Rails Side Rails x2, Bed position Low and Locked. Fall Precautions: Patient Fall Education Report given to Manuela FRIAS.
--- NOTE | 2020-09-21 19:30 | NUR ---
NURSE NOTES: Received report & pt from RODRIGUEZ Tyler. Pt in bed, a&ox4, in room air. No s/s of acute distress & c/o 9/10 pain at this time. Will give pain med when due. IV site intact with IVF running as ordered. Needing new IV site on either foot. Plan of care discussed.
[2020-09-21 20:00] VITALS: BP 133/97
--- NOTE | 2020-09-21 20:04 | NUR ---
NURSE NOTES: urine specimen sent down to lab for UA
[2020-09-21 20:29] LABS: APPEARANCE,URINE SLIGHTLY CLOUDY; BILIRUBIN, URINE NEGATIVE (NEGATIVE); GLUCOSE, URINE (UA) 2+ (NEGATIVE); KETONES,URINE 3+ (NEGATIVE); LEUKOCYTE ESTERASE ,URINE 1+ (NEGATIVE); NITRITE,URINE NEGATIVE (NEGATIVE); PH,URINE 6 (4.5-8.0); PROTEIN,URINE 4+ (NEGATIVE); UROBILINOGEN,URINE NORMAL MG/DL (0.0-1.0)
[2020-09-21 20:30] LABS: COLOR,URINE YELLOW
[2020-09-21] MEDS: Bisacodyl EC 5mg tab ORAL SCH (20:30)
[2020-09-21] MEDS: Metoprolol Tartrate 50mg tab ORAL SCH (20:31)
[2020-09-21] MEDS: Heparin 5000 units/ml inj SUBQ SCH (20:33)
[2020-09-21] MEDS: Zolpidem 5mg tab ORAL SCH (22:13)
[2020-09-22 00:11] VITALS: BP 133/84
[2020-09-22 04:23] VITALS: BP 129/84
--- NOTE | 2020-09-22 05:00 | NUR ---
NURSE NOTES: Pt states still has nausea but no vomiting.
--- NOTE | 2020-09-22 06:27 | NUR ---
NURSE HAND-OFF: Important Events on Shift: pain management, nauseous but no vomiting, new IV site left foot 24g, UA specimen sent to lab Patient Status: stable Diet: clear liquid Pending Orders: none Pending Results/Labs:none Pending MD notification:none Latest Vital Signs: Temperature 98.0 , Pulse 87 , B/P 129 /84 , Respiratory Rate 18 , O2 SAT 95 , Room Air, O2 Flow Rate . Vital Sign Comment: none Latest Gibbons Fall Score: 35 Fall Risk: Medium Risk Safety Measures: Call light Within Reach, Bed Alarm , Side Rails Side Rails x2, Bed position Low and Locked. Fall Precautions: Yellow Socks Door Sign Patient Fall Education Report given to . Addendum: 09/22/20 at 0738 by Manuela Contreras RN Report given to RODRIGUEZ Haley.
[2020-09-22 06:58] LABS: BASOPHILS % (AUTO) 1.1 % (0.0-2.0); EOSINOPHILS % (AUTO) 0.2 % (0.0-3.0); HEMATOCRIT 45.6 % (37.0-47.0); HEMOGLOBIN 14.1 G/DL (12.0-16.0); MEAN CORPUSCULAR VOLUME 87 FL (80-99); MONOCYTES % (AUTO) 6.8 % (1.0-10.0); NEUTROPHILS % (AUTO) 68.9 % (45.0-75.0); PLATELET COUNT 383 K/UL (150-450); RED BLOOD COUNT 5.27 M/UL (4.20-5.40); RED CELL DISTRIBUTION WIDTH 13.5 % (11.6-14.8); WHITE BLOOD COUNT 8.6 K/UL (4.8-10.8)
[2020-09-22 07:34] LABS: ALBUMIN 3.8 G/DL (3.4-5.0); ALBUMIN/GLOBULIN RATIO 0.8 (1.0-2.7); BILIRUBIN,TOTAL 0.5 MG/DL (0.2-1.0); CALCIUM 9.1 MG/DL (8.5-10.1); CREATININE 1.2 MG/DL (0.55-1.30); POTASSIUM 4.2 MMOL/L (3.5-5.1)
--- NOTE | 2020-09-22 07:45 | NUR ---
NURSE NOTES: Pt lying in bed w/bed in lowest position and call light within reach. Pt A&Ox4, VSS, and c/o 8/10 abdominal pain; will administer pain medication. IV sites intact/asymptomatic w/IVF infusing and skin intact. Pt denies N/V; bowel sounds present and abdomen non-distended/non-tender. Will continue to monitor.
[2020-09-22 08:00] VITALS: BP 153/96
[2020-09-22] MEDS: Imipramine 10mg tab ORAL SCH ×2 (08:15→18:19)
[2020-09-22] MEDS: Metoprolol Tartrate 50mg tab ORAL SCH ×2 (08:17→21:54)
[2020-09-22] MEDS: Heparin 5000 units/ml inj SUBQ SCH ×2 (08:21→22:03)
[2020-09-22] MEDS: D5NS 1,000 ML IV SCH ×2 (08:21→18:21)
[2020-09-22] MEDS ORDERED: Lidocaine 1% Plain 30 ml INJ PRN (10:45)
[2020-09-22] MEDS ORDERED: Heparin1,000 units/500ml Premix(Conc:2 units/ml) IV PRN (10:45)
[2020-09-22 12:00] VITALS: BP 159/92
--- NOTE | 2020-09-22 13:57 | General Progress Note ---
Subjective ROS Limited/Unobtainable: No Constitutional: Reports: malaise, weakness HEENT: Reports: no symptoms Cardiovascular: Reports: no symptoms Respiratory: Reports: no symptoms Gastrointestinal/Abdominal: Reports: abdominal pain, nausea, vomiting Genitourinary: Reports: no symptoms Neurologic/Psychiatric: Reports: no symptoms Endocrine: Reports: no symptoms Hematologic/Lymphatic: Reports: no symptoms Allergies: Coded Allergies: ORANGE JUICE (Verified Allergy, Unknown, 06/25/14) All Systems: reviewed and negative except above Subjective no events. still with nausea and vomiting. CT with diverticulitis. + abd pain. requiring iv pain meds and antiemetics around the clock Objective Last 24 Hour Vital Signs Date Time Temp Pulse Resp B/P (MAP) Pulse Ox O2 Delivery O2 Flow Rate FiO2 09/22/20 12:00 98.0 69 18 159/92 (114) 93 09/22/20 09:00 Room Air 09/22/20 08:17 90 153/96 09/22/20 08:00 97.5 90 18 153/96 (115) 96 09/22/20 04:23 98.0 87 18 129/84 (99) 95 09/22/20 00:11 97.6 107 18 133/84 (100) 96 09/21/20 21:00 Room Air 09/21/20 20:31 117 133/97 09/21/20 20:00 98.4 117 18 133/97 (109) 95 09/21/20 16:00 97.3 76 18 147/95 (112) 98 Intake and Output 09/21/20 09/22/20 19:00 07:00 Intake Total 1460 ml Balance 1460 ml Intake Oral 360 ml IV Total 1100 ml # Voids 3 Laboratory Tests 09/21/20 20:01: Urine Color Yellow, Urine Appearance Slightly cloudy, Urine pH 6, Urine Specific [place] 1.020, Urine Protein 4+H, Urine Glucose (UA) 2+H, Urine Ketones 3+H, Urine Blood 4+H, Urine Nitrite Negative, Urine Bilirubin Negative, Urine Urobilinogen Normal, Urine Leukocyte Esterase 1+H, Urine RBC 5-10H, Urine WBC 2- 4, Urine Squamous Epithelial Cells ModerateH, Urine Bacteria Few, Urine Hyaline Casts 0-2H 09/22/20 05:30: White Blood Count 8.6, Red Blood Count 5.27, Hemoglobin 14.1, Hematocrit 45.6, Mean Corpuscular Volume 87, Mean Corpuscular Hemoglobin 26.7L, Mean Corpuscular Hemoglobin Concent 30.8L, Red Cell Distribution Width 13.5, Platelet Count 383, Mean Platelet Volume 5.9L, Neutrophils (%) (Auto) 68.9, Lymphocytes (%) (Auto) 23.0, Monocytes (%) (Auto) 6.8, Eosinophils (%) (Auto) 0.2, Basophils (%) (Auto) 1.1, Sodium Level 139, Potassium Level 4.2, Chloride Level 101, Carbon Dioxide Level 29, Anion Gap 9, Blood Urea Nitrogen 17, Creatinine 1.2, Estimat Glomerular Filtration Rate 54.2, Glucose Level 95, Calcium Level 9.1, Total Bilirubin 0.5, Aspartate Amino Transf (AST/SGOT) 24, Alanine Aminotransferase (ALT/SGPT) 13, Alkaline Phosphatase 115, Total Protein 8.5H, Albumin 3.8, Globulin 4.7, Albumin/Globulin Ratio 0.8L, Lipase 169 Height (Feet): 5 Height (Inches): 4.00 Weight (Pounds): 138 General Appearance: WD/WN, alert EENT: PERRL/EOMI Neck: non-tender, normal alignment, supple Cardiovascular: normal peripheral pulses, normal rate Respiratory/Chest: chest wall non-tender, lungs clear, normal breath sounds Abdomen: soft, tender Edema: no edema noted Arm (L), no edema noted Arm (R) Assessment/Plan Problem List: (1) Diverticulitis ICD Codes: K57.92 - Diverticulitis of intestine, part unspecified, without perforation or abscess without bleeding SNOMED: 633373350 (2) Cyclic vomiting syndrome ICD Codes: G43.A0 - Cyclical vomiting, not intractable SNOMED: 81617595 (3) Hypertension ICD Codes: I10 - Essential (primary) hypertension SNOMED: 02489263 (4) CAD (coronary artery disease) ICD Codes: I25.10 - Atherosclerotic heart disease of [place] coronary artery without angina pectoris SNOMED: 51571294 (5) Dehydration ICD Codes: E86.0 - Dehydration SNOMED: 08234098 Status: stable Assessment/Plan: iv abx added GI and ID called pain rx ivf serial abd exams clears cont current cardiac regime Sudhakar Conti MD Sep 22, 2020 13:57
--- NOTE | 2020-09-22 15:39 | NUR ---
NURSE NOTES: Pt taken down via wheelchair for PICC line placement.
[2020-09-22 16:15] VITALS: BP 140/87
[2020-09-22] MEDS: Piperacillin/Tazobactam 3.375 GM in NS 110 ML IVPB SCH ×2 (16:27→22:08)
--- NOTE | 2020-09-22 16:30 | Brief Operative Note ---
Immediate Post Operative Note Operative Note Pre-op Diagnosis: needs IV access Procedure: PICC Post-op Diagnosis: same as pre-op Surgeon: Ray BOLANOS Anesthesia: local Specimen: none Complications: none Fluids: none Implant(s) used?: No Matthias Bolanos MD Sep 22, 2020 16:30
--- NOTE | 2020-09-22 16:40 | NUR ---
RADIOLOGY NOTE: LEFT UPPER EXTREMITY PICC LINE PLACEMENT BY DR. ELISEO OCHOA AT 1605 HRS. FA
--- NOTE | 2020-09-22 17:12 | NUR ---
CASE MANAGEMENT: INITIAL REVIEW 70 YO F PRESENTED TO HOSPITAL CC: INTRACTABLE N/V PMHx: hypertension, ischemic cardiomyopathy, cyclic vomiting, cervical radiculopathy SI;CYCLICAL VOMITING/ DEHYDRATION. VS: T 98 HR 69 RR 18 B/P 159/92 SATS 93% ON RA LABS: UA (+LEUKS AND BACTERIA) IS:DEXTROSE/NS @ 100 ML/HR ZOSYN IV Q8H LOPRESSOR PO Q12H LIPITOR PO QHS FLAGYL IV Q8H PATIENT ADMITTED TO MED/SURG 09/22/2020 DCP: HOME PLAN OF CARE: NPO. IV fluids, IV antiemetics, IV pain medications as needed. Continue outpatient cardiac regimen. Continue PPI treatment. Continue tricyclic antidepressant. GI consultation will be obtained.
--- NOTE | 2020-09-22 17:56 | Diagnostic Imaging Report ---
Indications: Needs long-term IV access Technique: Ultrasound confirms patent compressible left basilic vein. Total sterile technique, including sterile probe cover and sterile gel, hat, mask, sterile gown, large sterile drape, and preparation with 2% chlorhexidine utilized. Local anesthesia with 1% lidocaine. Under real-time ultrasound guidance with visualization of the needle entering the vein, puncture left arm left basilic vein using 21-gauge needle, documented and archived, passage 0.018 guidewire under direct fluoroscopy, which was used to determine appropriate catheter length, exchange for 4 [place] peel-away sheath. 4 [place] Bard dual-lumen power PICC cut to 44 cm. It was inserted through the peel-away sheath. Peel-away sheath and guidewire removed. Catheter fixed to the skin. Both catheter ports aspirated and flushed. Patient tolerated procedure well, without immediate complication. Digital radiograph documents satisfactory catheter tip position, at the cavoatrial junction. Total fluoroscopy time 27 seconds. Total dose area product 0.37336 mGym2 Total number of images: 1 Impression: Successful placement of left arm PICC under sonographic and fluoroscopic guidance, as described above.
--- NOTE | 2020-09-22 19:30 | NUR ---
NURSE NOTES: Patient awake in bed, alert and oriented x4, in generalized pain of 8/10. Will medicate as ordered. With PICC on left upper arm connected to D5NS@100ml/hr. Instructed to use call light for assistance. Bed in lowest, lock engaged and alarm on. Will continue to monitor.
--- NOTE | 2020-09-22 20:19 | NUR ---
NURSE HAND-OFF: Important Events on Shift: Pt went down to radiology for ALVARO PICC line placement; still c/o severe abdominal pain. Patient Status: Stable Diet: Clear liquids Pending Orders: None Pending Results/Labs:None Pending MD notification:None Latest Vital Signs: Temperature 97.9 , Pulse 82 , B/P 140 /87 , Respiratory Rate 18 , O2 SAT 95 , Room Air, O2 Flow Rate Vital Sign Comment: Stable Latest Gibbons Fall Score: 35 Fall Risk: Medium Risk Safety Measures: Call light Within Reach, Bed Alarm , Side Rails Side Rails x2, Bed position Low and Locked. Fall Precautions: Yellow Socks Door Sign Patient Fall Education Report given to RODRIGUEZ Burton.
[2020-09-22 20:50] VITALS: BP 127/80
[2020-09-22] MEDS: Bisacodyl EC 5mg tab ORAL SCH (21:54)
[2020-09-22] MEDS: Zolpidem 5mg tab ORAL SCH (21:55)
[2020-09-23] VITALS (7 sets, daily range): BP systolic 107–153; BP diastolic 75–94
[2020-09-23] MEDS: D5NS 1,000 ML IV SCH ×2 (02:30→14:15)
--- NOTE | 2020-09-23 04:40 | NUR ---
NURSE NOTES: ZOfran was pulled out but too early to give the next dose. Wasted.
[2020-09-23] MEDS: Piperacillin/Tazobactam 3.375 GM in NS 110 ML IVPB SCH ×3 (05:19→21:05)
--- NOTE | 2020-09-23 07:27 | NUR ---
NURSE HAND-OFF: Important Events on Shift: pain mgt Patient Status: stable Diet: clear liquid Pending Orders: Pending Results/Labs: Pending MD notification: Latest Vital Signs: Temperature 97.3 , Pulse 78 , B/P 107 /76 , Respiratory Rate 18 , O2 SAT 97 , Room Air, O2 Flow Rate . Vital Sign Comment: Latest Gibbons Fall Score: 35 Fall Risk: Medium Risk Safety Measures: Call light Within Reach, Bed Alarm , Side Rails Side Rails x2, Bed position Low and Locked. Fall Precautions: Yellow Socks Door Sign Patient Fall Education Report given to Ms. Ambrosio, RN
--- NOTE | 2020-09-23 07:47 | NUR ---
NURSE NOTES: Received report from RODRIGUEZ Burton. Rounding done with outgoing nurse. Pt a/o x 4, in bed. ALVARO PICC dressing is dry/intact. D5NS running @100ml/hr. Pt c/o pain as 04/19. Pain med will be given as MD ordered. Bed in lowest position, call light within reach. Will continue to monitor.
[2020-09-23] MEDS: Imipramine 10mg tab ORAL SCH ×2 (09:31→17:51)
[2020-09-23] MEDS: Metoprolol Tartrate 50mg tab ORAL SCH ×2 (09:32→20:42)
[2020-09-23] MEDS: Heparin 5000 units/ml inj SUBQ SCH ×2 (09:33→20:38)
--- NOTE | 2020-09-23 14:51 | General Progress Note ---
Subjective ROS Limited/Unobtainable: No Constitutional: Reports: malaise, weakness HEENT: Reports: no symptoms Cardiovascular: Reports: no symptoms Respiratory: Reports: no symptoms Gastrointestinal/Abdominal: Reports: abdominal pain Genitourinary: Reports: no symptoms Neurologic/Psychiatric: Reports: no symptoms Endocrine: Reports: no symptoms Hematologic/Lymphatic: Reports: no symptoms Allergies: Coded Allergies: ORANGE JUICE (Verified Allergy, Unknown, 06/25/14) All Systems: reviewed and negative except above Subjective no events. on iv abx. On ivf. +bausea. no vomiting. tolerating clear liquids. +abd pain. Objective Last 24 Hour Vital Signs Date Time Temp Pulse Resp B/P (MAP) Pulse Ox O2 Delivery O2 Flow Rate FiO2 09/23/20 12:00 98.3 72 18 139/85 (103) 92 09/23/20 09:32 68 123/75 09/23/20 09:00 Room Air 09/23/20 08:00 97.7 68 18 123/75 (91) 96 09/23/20 04:00 97.4 78 18 107/76 (86) 97 09/23/20 00:00 97.3 73 18 124/79 (94) 93 09/22/20 21:54 81 127/80 09/22/20 21:00 Room Air 09/22/20 20:50 97.8 81 17 127/80 (96) 96 09/22/20 16:15 97.9 82 18 140/87 (104) 95 Intake and Output 09/22/20 09/23/20 19:00 07:00 Intake Total 500 ml 1420 ml Balance 500 ml 1420 ml Intake Oral 400 ml 300 ml IV Total 100 ml 1120 ml # Voids 2 2 Height (Feet): 5 Height (Inches): 4.00 Weight (Pounds): 138 General Appearance: WD/WN, alert EENT: PERRL/EOMI, normal ENT inspection Neck: non-tender, normal alignment, supple Cardiovascular: normal peripheral pulses, normal rate, regular rhythm Respiratory/Chest: chest wall non-tender, lungs clear, normal breath sounds, no respiratory distress Abdomen: normal bowel sounds, soft, tender Edema: no edema noted Arm (L), no edema noted Arm (R) Neurologic: transition advisor II-XII grossly normal, no motor/sensory deficits, alert, oriented x 3 Assessment/Plan Problem List: (1) Diverticulitis ICD Codes: K57.92 - Diverticulitis of intestine, part unspecified, without pe rforation or abscess without bleeding SNOMED: 319683731 (2) Cyclic vomiting syndrome ICD Codes: G43.A0 - Cyclical vomiting, not intractable SNOMED: 60358646 (3) Hypertension ICD Codes: I10 - Essential (primary) hypertension SNOMED: 58034796 (4) CAD (coronary artery disease) ICD Codes: I25.10 - Atherosclerotic heart disease of [place] coronary artery without angina pectoris SNOMED: 20414804 (5) Dehydration ICD Codes: E86.0 - Dehydration SNOMED: 66060013 Status: stable Assessment/Plan: iv abx pain rx antiemetics ivf serial abd exams clears cont current cardiac regime monitor bp dvt/stress ulcer prophylaxis Sudhakar Conti MD Sep 23, 2020 14:51
--- NOTE | 2020-09-23 15:00 | Consultation ---
DATE OF CONSULTATION: 09/23/2020 GASTROLOGY CONSULTATION CHIEF COMPLAINT: Abdominal pain. HISTORY OF PRESENT ILLNESS: This is a 70-year-old female, known to this hospital for multiple admissions for nausea and vomiting attributed to possible cyclic vomiting syndrome, also abdominal pain attributed to diverticulitis, admitted again with same symptoms. CT of the abdomen and pelvis showed evidence of mild diverticulitis. The patient was admitted. PAST MEDICAL HISTORY: 1. Cyclic vomiting syndrome. 2. Diverticulitis. 3. Anemia. 4. Coronary artery disease, on anticoagulation. 5. Hiatal hernia. 6. Gastritis. 7. Hypertension. 8. Diverticulosis. 9. Acid reflux disease. 10. Constipation. ALLERGIES: No known drug allergies. MEDICATIONS: Please see medication reconciliation list. SOCIAL HISTORY: The patient has previous prior tobacco usage denies any alcohol or drug abuse. PAST SURGICAL HISTORY: The patient had cardiac stent placement, shoulder surgery, carpal tunnel surgery. Last endoscopy in February 2020, which showed severe duodenitis. Last endoscopy and colonoscopy combined in 2017. PHYSICAL EXAMINATION: VITAL SIGNS: Temperature 97.7, pulse 68, respirations 18, blood pressure is 120/75. HEENT: Normocephalic, atraumatic. Sclerae anicteric. NECK: Supple. No evidence of obvious lymphadenopathy. CARDIOVASCULAR: Regular rate and rhythm, plus S1-S2. LUNGS: Clear to auscultation bilaterally. ABDOMEN: Positive bowel sounds. Soft and nontender. There is tenderness to palpation in the left upper quadrant and epigastric area. No rebound. No guarding. No peritoneal sign. EXTREMITIES: No cyanosis, no clubbing, no edema. LABORATORY DATA: White count is 8.6, hemoglobin 14, hematocrit 45, platelets 383. ASSESSMENT: This is a 70-year-old female with diverticulitis, mild, also acute cyclic vomiting syndrome. PLAN: Antibiotics. Advanced diet to full liquid diet. IV hydration. Pain management. Drug screen to rule out marijuana-induced cyclic vomiting syndrome. Otoniel pool We will follow closely and make further recommendation as we go along. Rosales James M.D. DR: FARHAT JOB#: [id number] CC:
--- NOTE | 2020-09-23 18:49 | NUR ---
NURSE HAND-OFF: Important Events on Shift: pain meds x2 Patient Status: stable Diet: full liquid Pending Orders: - Pending Results/Labs:- Pending MD notification:- Latest Vital Signs: Temperature 99.2 , Pulse 76 , B/P 144 /81 , Respiratory Rate 18 , O2 SAT 96 , Room Air, O2 Flow Rate . Vital Sign Comment: stable Latest Gibbons Fall Score: 35 Fall Risk: Medium Risk Safety Measures: Call light Within Reach, Bed Alarm , Side Rails Side Rails x2, Bed position Low and Locked. Fall Precautions: Yellow Socks Door Sign Patient Fall Education Report given to RODRIGUEZ Frederick.
--- NOTE | 2020-09-23 19:33 | NUR ---
NURSE NOTES: received pt and report from RODRIGUEZ Underwood. pt alert and oriented x 4 with no acute s/s of distress and no co of pain at the moment. PICC line noted clean dry and intact and running fluids as ordered. plan of care discussed.
[2020-09-23] MEDS: Zolpidem 5mg tab ORAL SCH (20:42)
[2020-09-23] MEDS: Bisacodyl EC 5mg tab ORAL SCH (20:42)
--- NOTE | 2020-09-23 22:44 | Consultation ---
DATE OF CONSULTATION: 09/23/2020 INFECTIOUS DISEASE CONSULTATION This consult is for coverage of Dr. Rodriguez. CONSULTING PHYSICIAN: Higinio Adan M.D. PRIMARY ATTENDING PHYSICIAN: Sudhakar Conti M.D. REASON FOR CONSULT: Colonic diverticulitis. HISTORY OF PRESENT ILLNESS: A 70-year-old female admitted on September 21 complaining of nausea and vomiting. The patient has a history of cyclic vomiting syndrome. At this time, it was found that the patient has mild diverticulitis. PAST MEDICAL HISTORY: Significant for hypertension, ischemic cardiomyopathy, cyclic vomiting syndrome, irritable bowel syndrome. PAST SURGICAL HISTORY: Neck surgery, cardiac catheterization, had stent placement x3. MEDICATIONS: Getting Zosyn, Flagyl, heparin, Plavix, atorvastatin, Ambien, Protonix, metoprolol, Bisacodyl, imipramine, Zofran, diphenhydramine, hydromorphone. ALLERGY: [place] juice. SOCIAL HISTORY: . Denies alcohol and drug abuse. Smokes occasionally. REVIEW OF SYSTEMS: No fever. No chills. Occasional cough. No chest pain. Currently has no nausea or vomiting and on liquid diet. Has constipation usually. No dysuria. Has had some abdominal pain in the epigastric area that attributes it to vomiting. PHYSICAL EXAMINATION: VITAL SIGNS: Temperature 98.3, pulse 72, blood pressure 139/85. GENERAL APPEARANCE: No acute distress. Seems to have normal weight. HEAD AND NECK: No oral lesion. HEART: Normal rate. LUNGS: Clear. ABDOMEN: Soft. Mildly tender in the epigastric area. EXTREMITIES: She has no edema. NEUROLOGIC: Awake, alert, and oriented x3. LABORATORY AND DIAGNOSTIC DATA: WBC 8.6, hemoglobin 14.1, hematocrit 45.6, platelets 383. Sodium 139, potassium 4.2, chloride 101, bicarbonate 29, BUN 17, creatinine 1.2, glucose is 95. CT scan of the abdomen and pelvis is slightly stranded pericolonic fat adjacent to ascending colon, suspicious for acute mild uncomplicated ascending diverticulitis, extensive diverticulosis of colon. IMPRESSION: 1. Diverticulitis of ascending colon. 2. Cyclic vomiting syndrome. 3. Hypertension. 4. Diverticulosis of colon. RECOMMENDATION: Continue with Zosyn. We will discontinue IV Flagyl. We will follow up the clinical course. may be discharged with p.o. antibiotic soon. At the end of my exam, I thank Dr. Conti for involving me in the care of this patient. Higinio Adan M.D. DR: ERIC JOB#: [id number] CC: RANDY
--- NOTE | 2020-09-23 23:48 | NUR ---
NURSE NOTES: pt vital signs stable. pt in no acute distress and no co pain. alert and oriented x 4. no other issues present. no complaints currently of abd pain. pt has not had emesis.
[2020-09-24] MEDS: D5NS 1,000 ML IV SCH ×3 (01:22→21:49)
[2020-09-24 03:57] VITALS: BP 129/89
[2020-09-24 04:32] LABS: BASOPHILS % (AUTO) 1.7 % (0.0-2.0); HEMATOCRIT 36.4 % (37.0-47.0); HEMOGLOBIN 11.4 G/DL (12.0-16.0); LYMPHOCYTES % (AUTO) 32.9 % (20.0-45.0); MEAN CORPUSCULAR VOLUME 86 FL (80-99); MONOCYTES % (AUTO) 9.7 % (1.0-10.0); NEUTROPHILS % (AUTO) 50.7 % (45.0-75.0); PLATELET COUNT 273 K/UL (150-450); RED BLOOD COUNT 4.24 M/UL (4.20-5.40); RED CELL DISTRIBUTION WIDTH 12.8 % (11.6-14.8); WHITE BLOOD COUNT 4.7 K/UL (4.8-10.8)
[2020-09-24 04:48] LABS: ANION GAP 5 mmol/L (5-15); BLOOD UREA NITROGEN 4 mg/dL (7-18); CALCIUM 7.6 MG/DL (8.5-10.1); CARBON DIOXIDE 28 MMOL/L (21-32); CHLORIDE 105 MMOL/L (98-107); SODIUM 138 MMOL/L (136-145)
[2020-09-24] MEDS: Piperacillin/Tazobactam 3.375 GM in NS 110 ML IVPB SCH ×3 (05:31→21:49)
--- NOTE | 2020-09-24 06:00 | NUR ---
NURSE NOTES: Dr. Conti notified of pts current WBC level, potassium level and calcium level. 40 mEq KCl PO one time ordered. No other orders received. Will carry out order as soon as verified by Pharmacy.
--- NOTE | 2020-09-24 07:08 | General Progress Note ---
Subjective ROS Limited/Unobtainable: Yes Allergies: Coded Allergies: ORANGE JUICE (Verified Allergy, Unknown, 06/25/14) Objective Last 24 Hour Vital Signs Date Time Temp Pulse Resp B/P (MAP) Pulse Ox O2 Delivery O2 Flow Rate FiO2 09/24/20 03:57 98.1 75 15 129/89 (102) 97 09/23/20 23:53 97.9 83 16 142/91 (108) 97 09/23/20 20:42 83 153/94 09/23/20 20:00 98.0 83 18 153/94 (113) 97 09/23/20 19:51 Room Air 09/23/20 16:00 99.2 76 18 144/81 (102) 96 09/23/20 12:00 98.3 72 18 139/85 (103) 92 09/23/20 09:32 68 123/75 09/23/20 09:00 Room Air 09/23/20 08:00 97.7 68 18 123/75 (91) 96 Intake and Output 09/23/20 09/24/20 19:00 07:00 Intake Total 1710.0 ml 1750 ml Balance 1710.0 ml 1750 ml Intake Oral 500 ml 1050 ml IV Total 1210.0 ml 700 ml # Voids 2 Laboratory Tests 09/23/20 16:45: Urine Opiates Screen Negative, Urine Barbiturates Screen Negative, Phencyclidine (PCP) Screen Negative, Urine Amphetamines Screen Negative, Urine Benzodiazepines Screen PositiveH, Urine Cocaine Screen Negative, Urine Marijuana (THC) Screen PositiveH 09/24/20 04:00: White Blood Count 4.7L, Red Blood Count 4.24, Hemoglobin 11.4L, Hematocrit 36.4L , Mean Corpuscular Volume 86, Mean Corpuscular Hemoglobin 26.9L, Mean Corpuscular Hemoglobin Concent 31.4L, Red Cell Distribution Width 12.8, Platelet Count 273, Mean Platelet Volume 5.9L, Neutrophils (%) (Auto) 50.7, Lymphocytes (%) (Auto) 32.9, Monocytes (%) (Auto) 9.7, Eosinophils (%) (Auto) 5.0H, Basophils (%) (Auto) 1.7, Sodium Level 138, Potassium Level 3.0L, Chloride Level 105, Carbon Dioxide Level 28, Anion Gap 5, Blood Urea Nitrogen 4L, Creatinine 1.0, Estimat Glomerular Filtration Rate > 60, Glucose Level 90, Calcium Level 7.6L Height (Feet): 5 Height (Inches): 4.00 Weight (Pounds): 138 General Appearance: alert EENT: normal ENT inspection Neck: normal alignment Cardiovascular: normal rate Respiratory/Chest: lungs clear Abdomen: soft, tender Extremities: non-tender Assessment/Plan Problem List: (1) Diverticulitis ICD Codes: K57.92 - Diverticulitis of intestine, part unspecified, without perforation or abscess without bleeding SNOMED: 124343770 (2) Hypertension ICD Codes: I10 - Essential (primary) hypertension SNOMED: 66932789 (3) Cyclic vomiting syndrome ICD Codes: G43.A0 - Cyclical vomiting, not intractable SNOMED: 55017635 Status: stable Assessment/Plan: + THC abd pain is better on abx per ID advance diet needs out patient fu for colonoscopy avoid THC replace Rosales Yu MD Sep 24, 2020 07:08
--- NOTE | 2020-09-24 07:22 | NUR ---
NURSE HAND-OFF: Important Events on Shift:Pain management, potassium decreased, 40 mEq KDur given Patient Status: stable Diet: full liquid Pending Orders: NA Pending Results/Labs:NA Pending MD notification:NA Latest Vital Signs: Temperature 98.1 , Pulse 75 , B/P 129 /89 , Respiratory Rate 15 , O2 SAT 97 , Room Air, O2 Flow Rate . Vital Sign Comment: stable through the shift Latest Gibbons Fall Score: 60 Fall Risk: High Risk Safety Measures: Call light Within Reach, Bed Alarm , Side Rails Side Rails x2, Bed position Low and Locked. Fall Precautions: Yellow Socks Door Sign Patient Fall Education Report given to RODRIGUEZ Luis.
--- NOTE | 2020-09-24 07:30 | NUR ---
NURSE NOTES: Received report from thao RN, rounds made pt awake , a/o x 4breaths regular unlabored on RA no s/s distress,denies pain at this time , no c/o nausea and vomiting at this time will continue to monitor pt has IVF via the picc on the ALVARO arm , dressing clean intact with small bruise visible under clear the dressing , pt states bruise was caused on the day if picc line insertion, intact patent asymptomatic , bed in low locked position , side rails up X 2, call light with in reach , will continue to monitor
[2020-09-24 08:00] VITALS: BP 156/90
[2020-09-24] MEDS: Metoprolol Tartrate 50mg tab ORAL SCH ×2 (09:29→20:16)
[2020-09-24] MEDS: Imipramine 10mg tab ORAL SCH ×2 (09:29→17:00)
[2020-09-24] MEDS: Heparin 5000 units/ml inj SUBQ SCH ×2 (09:30→20:16)
--- NOTE | 2020-09-24 11:33 | General Progress Note ---
Subjective ROS Limited/Unobtainable: No Constitutional: Reports: malaise, weakness HEENT: Reports: no symptoms Cardiovascular: Reports: no symptoms Respiratory: Reports: no symptoms Gastrointestinal/Abdominal: Reports: abdominal pain, nausea, vomiting Genitourinary: Reports: no symptoms Neurologic/Psychiatric: Reports: no symptoms Endocrine: Reports: no symptoms Hematologic/Lymphatic: Reports: no symptoms Allergies: Coded Allergies: ORANGE JUICE (Verified Allergy, Unknown, 06/25/14) All Systems: reviewed and negative except above Subjective no events. on iv abx. On ivf. +bausea. no vomiting. tolerating clear liquids. +abd pain. on iv abx. feels like she is improving. Objective Last 24 Hour Vital Signs Date Time Temp Pulse Resp B/P (MAP) Pulse Ox O2 Delivery O2 Flow Rate FiO2 09/24/20 09:29 83 156/90 09/24/20 08:00 98.1 83 17 156/90 (112) 97 09/24/20 03:57 98.1 75 15 129/89 (102) 97 09/23/20 23:53 97.9 83 16 142/91 (108) 97 09/23/20 20:42 83 153/94 09/23/20 20:00 98.0 83 18 153/94 (113) 97 09/23/20 19:51 Room Air 09/23/20 16:00 99.2 76 18 144/81 (102) 96 09/23/20 12:00 98.3 72 18 139/85 (103) 92 Intake and Output 09/23/20 09/24/20 19:00 07:00 Intake Total 1710.0 ml 1750 ml Balance 1710.0 ml 1750 ml Intake Oral 500 ml 1050 ml IV Total 1210.0 ml 700 ml # Voids 2 Laboratory Tests 09/23/20 16:45: Urine Opiates Screen Negative, Urine Barbiturates Screen Negative, Phencyclidine (PCP) Screen Negative, Urine Amphetamines Screen Negative, Urine Benzodiazepines Screen PositiveH, Urine Cocaine Screen Negative, Urine Marijuana (THC) Screen PositiveH 09/24/20 04:00: White Blood Count 4.7L, Red Blood Count 4.24, Hemoglobin 11.4L, Hematocrit 36.4L , Mean Corpuscular Volume 86, Mean Corpuscular Hemoglobin 26.9L, Mean Corpuscular Hemoglobin Concent 31.4L, Red Cell Distribution Width 12.8, Platelet Count 273, Mean Platelet Volume 5.9L, Neutrophils (%) (Auto) 50.7, Lymphocytes (%) (Auto) 32.9, Monocytes (%) (Auto) 9.7, Eosinophils (%) (Auto) 5.0H, Basoph ils (%) (Auto) 1.7, Sodium Level 138, Potassium Level 3.0L, Chloride Level 105, Carbon Dioxide Level 28, Anion Gap 5, Blood Urea Nitrogen 4L, Creatinine 1.0, Estimat Glomerular Filtration Rate > 60, Glucose Level 90, Calcium Level 7.6L Height (Feet): 5 Height (Inches): 4.00 Weight (Pounds): 138 Objective General Appearance: WD/WN, alert EENT: PERRL/EOMI, normal ENT inspection Neck: non-tender, normal alignment, supple Cardiovascular: normal peripheral pulses, normal rate, regular rhythm Respiratory/Chest: chest wall non-tender, lungs clear, normal breath sounds, no respiratory distress Abdomen: normal bowel sounds, soft, tender Edema: no edema noted Arm (L), no edema noted Arm (R) 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 grossly normal, no motor/sensory deficits, alert, oriented x 3 Assessment/Plan Problem List: (1) Diverticulitis ICD Codes: K57.92 - Diverticulitis of intestine, part unspecified, without perforation or abscess without bleeding SNOMED: 777017303 (2) Cyclic vomiting syndrome ICD Codes: G43.A0 - Cyclical vomiting, not intractable SNOMED: 07701090 (3) Hypertension ICD Codes: I10 - Essential (primary) hypertension SNOMED: 97537748 (4) CAD (coronary artery disease) ICD Codes: I25.10 - Atherosclerotic heart disease of [place] coronary artery without angina pectoris SNOMED: 86248196 (5) Dehydration ICD Codes: E86.0 - Dehydration SNOMED: 54882533 Status: stable Assessment/Plan: iv abx pain rx antiemetics ivf serial abd exams advance diet cont current cardiac regime monitor bp dvt/stress ulcer prophylaxis Sudhakar Conti MD Sep 24, 2020 11:33
[2020-09-24 11:54] VITALS: BP 142/88
--- NOTE | 2020-09-24 11:54 | Infectious Diseases Prog Note ---
Assessment/Plan Assessment/Plan antibiotics : zosyn A 1. diverticulitis 2. cardiomyopathy 3. hypertension P 1. continue zosyn 2. will follow up cultures Subjective Constitutional: Denies: fever, chills Respiratory: Denies: shortness of breath, dry cough Gastrointestinal/Abdominal: Denies: nausea, vomiting, diarrhea Musculoskeletal: Reports: pain - abdominal Allergies: Coded Allergies: ORANGE JUICE (Verified Allergy, Unknown, 06/25/14) Objective Last 24 Hour Vital Signs Date Time Temp Pulse Resp B/P (MAP) Pulse Ox O2 Delivery O2 Flow Rate FiO2 09/24/20 09:29 83 156/90 09/24/20 09:00 Room Air 09/24/20 08:00 98.1 83 17 156/90 (112) 97 09/24/20 03:57 98.1 75 15 129/89 (102) 97 09/23/20 23:53 97.9 83 16 142/91 (108) 97 09/23/20 20:42 83 153/94 09/23/20 20:00 98.0 83 18 153/94 (113) 97 09/23/20 19:51 Room Air 09/23/20 16:00 99.2 76 18 144/81 (102) 96 09/23/20 12:00 98.3 72 18 139/85 (103) 92 Height (Feet): 5 Height (Inches): 4.00 Weight (Pounds): 138 Respiratory/Chest: lungs clear Cardiovascular: normal rate, regular rhythm, no gallop/murmur Abdomen: tender - diffusely Extremities: no edema Laboratory Tests Test 09/23/20 16:45 09/24/20 04:00 Urine Opiates Screen Negative (NEGATIVE) Urine Barbiturates Screen Negative (NEGATIVE) Phencyclidine (PCP) Screen Negative (NEGATIVE) Urine Amphetamines Screen Negative (NEGATIVE) Urine Benzodiazepines Screen Positive (NEGATIVE) H Urine Cocaine Screen Negative (NEGATIVE) Urine Marijuana (THC) Screen Positive (NEGATIVE) H White Blood Count 4.7 K/UL (4.8-10.8) L Red Blood Count 4.24 M/UL (4.20-5.40) Hemoglobin 11.4 G/DL (12.0-16.0) L Hematocrit 36.4 % (37.0-47.0) L Mean Corpuscular Volume 86 FL (80-99) Mean Corpuscular Hemoglobin 26.9 PG (27.0-31.0) L Mean Corpuscular Hemoglobin Concent 31.4 G/DL (32.0-36.0) L Red Cell Distribution Width 12.8 % (11.6-14.8) Platelet Count 273 K/UL (150-450) Mean Platelet Volume 5.9 FL (6.5-10.1) L Neutrophils (%) (Auto) 50.7 % (45.0-75.0) Lymphocytes (%) (Auto) 32.9 % (20.0-45.0) Monocytes (%) (Auto) 9.7 % (1.0-10.0) Eosinophils (%) (Auto) 5.0 % (0.0-3.0) H Basophils (%) (Auto) 1.7 % (0.0-2.0) Sodium Level 138 MMOL/L (136-145) Potassium Level 3.0 MMOL/L (3.5-5.1) L Chloride Level 105 MMOL/L (98-107) Carbon Dioxide Level 28 MMOL/L (21-32) Anion Gap 5 mmol/L (5-15) Blood Urea Nitrogen 4 mg/dL (7-18) L Creatinine 1.0 MG/DL (0.55-1.30) Estimat Glomerular Filtration Rate > 60 mL/min (>60) Glucose Level 90 MG/DL (74-106) Calcium Level 7.6 MG/DL (8.5-10.1) L Current Medications Medications (Trade) Dose Ordered Sig/Mauricio Route PRN Reason Start Time Stop Time Status Last Admin Dose Admin Atorvastatin Calcium (Lipitor) 10 mg DAILY ORAL 09/22/20 09:00 12/21/20 08:59 09/24/20 09:29 Bisacodyl (Dulcolax) 10 mg QHS ORAL 09/21/20 21:00 12/20/20 20:59 09/23/20 20:42 Clopidogrel Bisulfate (Plavix) 75 mg DAILY ORAL 09/22/20 09:00 10/22/20 08:59 09/24/20 09:29 Dextrose/Sodium Chloride 1,000 ml @ 100 mls/hr Q10H IV 09/21/20 13:30 10/21/20 13:29 09/24/20 01:22 Diphenhydramine HCl (Benadryl) 25 mg Q6H PRN IVP Itching 09/21/20 13:30 10/21/20 13:29 Heparin Sodium (Porcine) (Heparin 5000 units/ml) 5,000 units EVERY 12 HOURS SUBQ 09/21/20 21:00 11/05/20 20:59 09/24/20 09:30 Hydromorphone HCl (Dilaudid) 2 mg Q4H PRN IVP Severe Pain (Pain Scale 7-10) 09/21/20 13:30 09/28/20 13:29 09/24/20 09:29 Imipramine HCl (Tofranil) 50 mg TWICE A DAY ORAL 09/21/20 18:00 10/21/20 17:59 09/24/20 09:29 Metoprolol Tartrate (Lopressor) 50 mg EVERY 12 HOURS ORAL 09/21/20 21:00 12/20/20 20:59 09/24/20 09:29 Ondansetron HCl (Zofran) 4 mg Q6H PRN IVP Nausea & Vomiting 09/21/20 13:30 10/21/20 13:29 09/24/20 09:29 Pantoprazole (Protonix) 40 mg QHS ORAL 09/21/20 21:00 10/21/20 20:59 09/23/20 20:42 Piperacillin Sod/ Tazobactam Sod 3.375 gm/Sodium Chloride 110 ml @ 27.5 mls/hr EVERY 8 HOURS IVPB 09/22/20 15:00 09/27/20 14:59 09/24/20 05:31 Zolpidem Tartrate (Ambien) 5 mg BEDTIME ORAL 09/21/20 21:00 09/28/20 20:59 09/23/20 20:42 Sharon Rodriguez MD Sep 24, 2020 11:54
[2020-09-24] MEDS ORDERED: D5NS 1000ml IV ONE (15:13)
[2020-09-24] MEDS ORDERED: Tubing IV Secondary IV ONE (15:13)
[2020-09-24 16:00] VITALS: BP 137/91
--- NOTE | 2020-09-24 19:22 | NUR ---
NURSE HAND-OFF: Important Events on Shift:pain management Patient Status: stable Diet: low residual low fiber Pending Orders: Pending Results/Labs: Pending MD notification: Latest Vital Signs: Temperature 97.3 , Pulse 81 , B/P 137 /91 , Respiratory Rate 17 , O2 SAT 95 , Room Air, O2 Flow Rate . Vital Sign Comment: Latest Gibbons Fall Score: 60 Fall Risk: High Risk Safety Measures: Call light Within Reach, Bed Alarm , Side Rails Side Rails x2, Bed position Low and Locked. Fall Precautions: Yellow Socks Door Sign Patient Fall Education Report given to Otoniel FRIAS.
--- NOTE | 2020-09-24 19:25 | NUR ---
NURSE NOTES: received pt and report from RODRIGUEZ Luis. pt alert and oriented x 4 with no acute s/s of distress and no co pain at the moment. PICC site clean dry and intact and running fluids as ordered. plan of care discussed.
[2020-09-24 20:00] VITALS: BP 150/93
[2020-09-24] MEDS: Zolpidem 5mg tab ORAL SCH (20:16)
[2020-09-24] MEDS: Bisacodyl EC 5mg tab ORAL SCH (20:17)
[2020-09-25] VITALS (7 sets, daily range): BP systolic 144–173; BP diastolic 86–103
--- NOTE | 2020-09-25 04:28 | NUR ---
NURSE NOTES: pt vitals are stable and pt is not in any acute distress. she has pain at the moment, will give medication when due. she is alert and oriented x 4. pt has not had emesis so far this shift. she gets out of bed without assist, gait is steady, she ambulates to the bathroom. will continue to monitor.
[2020-09-25] MEDS: Piperacillin/Tazobactam 3.375 GM in NS 110 ML IVPB SCH ×3 (05:03→22:09)
[2020-09-25 05:51] LABS: EOSINOPHILS % (AUTO) 4.8 % (0.0-3.0); HEMATOCRIT 37.5 % (37.0-47.0); HEMOGLOBIN 11.8 G/DL (12.0-16.0); LYMPHOCYTES % (AUTO) 30.3 % (20.0-45.0); MEAN CORPUSCULAR VOLUME 86 FL (80-99); MONOCYTES % (AUTO) 9.6 % (1.0-10.0); NEUTROPHILS % (AUTO) 54.2 % (45.0-75.0); PLATELET COUNT 288 K/UL (150-450); RED BLOOD COUNT 4.37 M/UL (4.20-5.40); WHITE BLOOD COUNT 4.6 K/UL (4.8-10.8)
[2020-09-25 06:21] LABS: ANION GAP 7 mmol/L (5-15); BLOOD UREA NITROGEN 2 mg/dL (7-18); CALCIUM 7.9 MG/DL (8.5-10.1); CARBON DIOXIDE 28 MMOL/L (21-32); CHLORIDE 105 MMOL/L (98-107); CREATININE 0.9 MG/DL (0.55-1.30); POTASSIUM 3.2 MMOL/L (3.5-5.1); SODIUM 140 MMOL/L (136-145)
--- NOTE | 2020-09-25 07:23 | NUR ---
NURSE HAND-OFF: Important Events on Shift: pain management Patient Status: stable Diet: soft diet Pending Orders: NA Pending Results/Labs:NA Pending MD notification:NA Latest Vital Signs: Temperature 98.1 , Pulse 78 , B/P 149 /86 , Respiratory Rate 16 , O2 SAT 95 , Room Air, O2 Flow Rate . Vital Sign Comment: stable through the shift Latest Gibbons Fall Score: 60 Fall Risk: High Risk Safety Measures: Call light Within Reach, Bed Alarm , Side Rails Side Rails x2, Bed position Low and Locked. Fall Precautions: Yellow Socks Door Sign Patient Fall Education Report given to RODRIGUEZ Luis.
--- NOTE | 2020-09-25 07:34 | NUR ---
NURSE NOTES: Received report from RODRIGUEZ osuna, rounds made pt awake , a/o x 4breaths regular unlabored on RA no s/s distress,denies pain at this time , no c/o nausea and vomiting no episode of vomiting over night at this time will continue to monitor pt has IVF via the picc on the ALVARO arm , dressing clean intact with small bruise visible under clear the dressing , pt states bruise was caused on the day if picc line insertion no s/s of infection , intact patent asymptomatic , bed in low locked position , side rails up X 2, call light with in reach , will continue to monitor
[2020-09-25] MEDS: D5NS 1,000 ML IV SCH ×2 (08:19→17:30)
[2020-09-25] MEDS: Imipramine 10mg tab ORAL SCH ×2 (08:20→17:29)
[2020-09-25] MEDS: Metoprolol Tartrate 50mg tab ORAL SCH ×2 (08:20→20:29)
[2020-09-25] MEDS: Heparin 5000 units/ml inj SUBQ SCH ×2 (08:21→20:30)
--- NOTE | 2020-09-25 09:54 | General Progress Note ---
Subjective Allergies: Coded Allergies: ORANGE JUICE (Verified Allergy, Unknown, 06/25/14) Subjective Feels better tolerating po still with abd pain Objective Last 24 Hour Vital Signs Date Time Temp Pulse Resp B/P (MAP) Pulse Ox O2 Delivery O2 Flow Rate FiO2 09/25/20 09:00 Room Air 09/25/20 08:20 74 157/98 09/25/20 07:50 97.9 74 18 157/98 (117) 95 09/25/20 04:00 98.1 78 16 149/86 (107) 95 09/25/20 00:00 98.1 80 14 147/90 (109) 96 09/24/20 21:00 Room Air 09/24/20 20:16 83 150/93 09/24/20 20:00 98.3 83 16 150/93 (112) 98 09/24/20 16:00 97.3 81 17 137/91 (106) 95 09/24/20 11:54 97.9 77 17 142/88 (106) 97 Intake and Output 09/24/20 09/25/20 19:00 07:00 Intake Total 400 ml 1300 ml Balance 400 ml 1300 ml Intake Oral 400 ml 600 ml IV Total 700 ml # Voids 5 3 Laboratory Tests 09/25/20 04:00: White Blood Count 4.6L, Red Blood Count 4.37, Hemoglobin 11.8L, Hematocrit 37.5, Mean Corpuscular Volume 86, Mean Corpuscular Hemoglobin 27.0, Mean Corpuscular Hemoglobin Concent 31.4L, Red Cell Distribution Width 13.0, Platelet Count 288, Mean Platelet Volume 6.1L, Neutrophils (%) (Auto) 54.2, Lymphocytes (%) (Auto) 30.3, Monocytes (%) (Auto) 9.6, Eosinophils (%) (Auto) 4.8H, Basophils (%) (Auto) 1.0, Sodium Level 140, Potassium Level 3.2L, Chloride Level 105, Carbon Dioxide Level 28, Anion Gap 7, Blood Urea Nitrogen 2L, Creatinine 0.9, Estimat Glomerular Filtration Rate > 60, Glucose Level 91, Calcium Level 7.9L, Magnesium Level 1.7L, Pro-B-Type Natriuretic Peptide 575H Height (Feet): 5 Height (Inches): 4.00 Weight (Pounds): 138 Objective WDWN woman NCAT supple CTA RR; abd soft , mild lower abd TTP no edema Assessment/Plan Status: stable Assessment/Plan: Assessment - Chronic constipatioin - diverticulitis - cyclic N/V Recommendations - po as tolerated - abx - restart bowel regimen - Kim Guerra MD Sep 25, 2020 09:54
[2020-09-25] MEDS ORDERED: Sorbitol Solution UD 30ml ORAL SCH (11:00)
--- NOTE | 2020-09-25 11:27 | General Progress Note ---
Subjective ROS Limited/Unobtainable: No Constitutional: Reports: malaise, weakness HEENT: Reports: no symptoms Cardiovascular: Reports: no symptoms Respiratory: Reports: no symptoms Gastrointestinal/Abdominal: Reports: abdominal pain Genitourinary: Reports: no symptoms Neurologic/Psychiatric: Reports: no symptoms Endocrine: Reports: no symptoms Hematologic/Lymphatic: Reports: no symptoms Allergies: Coded Allergies: ORANGE JUICE (Verified Allergy, Unknown, 06/25/14) All Systems: reviewed and negative except above Subjective decreased abd pain. po intake remains poor. low k and Mg noted. no fevers or chills. remains on iv abx. Objective Last 24 Hour Vital Signs Date Time Temp Pulse Resp B/P (MAP) Pulse Ox O2 Delivery O2 Flow Rate FiO2 09/25/20 09:00 Room Air 09/25/20 08:20 74 157/98 09/25/20 07:50 97.9 74 18 157/98 (117) 95 09/25/20 04:00 98.1 78 16 149/86 (107) 95 09/25/20 00:00 98.1 80 14 147/90 (109) 96 09/24/20 21:00 Room Air 09/24/20 20:16 83 150/93 09/24/20 20:00 98.3 83 16 150/93 (112) 98 09/24/20 16:00 97.3 81 17 137/91 (106) 95 09/24/20 11:54 97.9 77 17 142/88 (106) 97 Intake and Output 09/24/20 09/25/20 19:00 07:00 Intake Total 400 ml 1300 ml Balance 400 ml 1300 ml Intake Oral 400 ml 600 ml IV Total 700 ml # Voids 5 3 Laboratory Tests 09/25/20 04:00: White Blood Count 4.6L, Red Blood Count 4.37, Hemoglobin 11.8L, Hematocrit 37.5, Mean Corpuscular Volume 86, Mean Corpuscular Hemoglobin 27.0, Mean Corpuscular Hemoglobin Concent 31.4L, Red Cell Distribution Width 13.0, Platelet Count 288, Mean Platelet Volume 6.1L, Neutrophils (%) (Auto) 54.2, Lymphocytes (%) (Auto) 30.3, Monocytes (%) (Auto) 9.6, Eosinophils (%) (Auto) 4.8H, Basophils (%) (Auto) 1.0, Sodium Level 140, Potassium Level 3.2L, Chloride Level 105, Carbon Dioxide Level 28, Anion Gap 7, Blood Urea Nitrogen 2L, Creatinine 0.9, Estimat Glomerular Filtration Rate > 60, Glucose Level 91, Calcium Level 7.9L, Magnesium Level 1.7L, Pro-B-Type Natriuretic Peptide 575H Height (Feet): 5 Height (Inches): 4.00 Weight (Pounds): 138 Objective General Appearance: WD/WN, alert EENT: PERRL/EOMI, normal ENT inspection Neck: non-tender, normal alignment, supple Cardiovascular: normal peripheral pulses, normal rate, regular rhythm Respiratory/Chest: chest wall non-tender, lungs clear, normal breath sounds, no respiratory distress Abdomen: normal bowel sounds, soft, tender Edema: no edema noted Arm (L), no edema noted Arm (R) Neurologic: therapy assistant II-XII grossly normal, no motor/sensory deficits, alert, oriented x 3 Assessment/Plan Problem List: (1) Diverticulitis ICD Codes: K57.92 - Diverticulitis of intestine, part unspecified, without perforation or abscess without bleeding SNOMED: 486576735 (2) Cyclic vomiting syndrome ICD Codes: G43.A0 - Cyclical vomiting, not intractable SNOMED: 31719428 (3) Hypertension ICD Codes: I10 - Essential (primary) hypertension SNOMED: 40983887 (4) CAD (coronary artery disease) ICD Codes: I25.10 - Atherosclerotic heart disease of [place] coronary artery without angina pectoris SNOMED: 41677974 (5) Dehydration ICD Codes: E86.0 - Dehydration SNOMED: 71527260 Status: stable Assessment/Plan: iv abx pain rx antiemetics ivf serial abd exams advance diet cont current cardiac regime monitor bp dvt/stress ulcer prophylaxis replace k and mg Sudhakar Conti MD Sep 25, 2020 11:27
--- NOTE | 2020-09-25 11:43 | Infectious Diseases Prog Note ---
Assessment/Plan Assessment/Plan antibiotics : zosyn A 1. diverticulitis improving 2. cardiomyopathy 3. hypertension P 1. continue zosyn 2. will follow up cultures Subjective Constitutional: Denies: fever, chills Respiratory: Denies: shortness of breath, dry cough Gastrointestinal/Abdominal: Denies: nausea, vomiting, diarrhea Musculoskeletal: Reports: pain - decreased abdominal Allergies: Coded Allergies: ORANGE JUICE (Verified Allergy, Unknown, 06/25/14) Objective Last 24 Hour Vital Signs Date Time Temp Pulse Resp B/P (MAP) Pulse Ox O2 Delivery O2 Flow Rate FiO2 09/25/20 09:00 Room Air 09/25/20 08:20 74 157/98 09/25/20 07:50 97.9 74 18 157/98 (117) 95 09/25/20 04:00 98.1 78 16 149/86 (107) 95 09/25/20 00:00 98.1 80 14 147/90 (109) 96 09/24/20 21:00 Room Air 09/24/20 20:16 83 150/93 09/24/20 20:00 98.3 83 16 150/93 (112) 98 09/24/20 16:00 97.3 81 17 137/91 (106) 95 09/24/20 11:54 97.9 77 17 142/88 (106) 97 Height (Feet): 5 Height (Inches): 4.00 Weight (Pounds): 138 Respiratory/Chest: lungs clear Cardiovascular: normal rate, regular rhythm, no gallop/murmur Abdomen: tender Extremities: no edema Laboratory Tests Test 09/25/20 04:00 White Blood Count 4.6 K/UL (4.8-10.8) L Red Blood Count 4.37 M/UL (4.20-5.40) Hemoglobin 11.8 G/DL (12.0-16.0) L Hematocrit 37.5 % (37.0-47.0) Mean Corpuscular Volume 86 FL (80-99) Mean Corpuscular Hemoglobin 27.0 PG (27.0-31.0) Mean Corpuscular Hemoglobin Concent 31.4 G/DL (32.0-36.0) L Red Cell Distribution Width 13.0 % (11.6-14.8) Platelet Count 288 K/UL (150-450) Mean Platelet Volume 6.1 FL (6.5-10.1) L Neutrophils (%) (Auto) 54.2 % (45.0-75.0) Lymphocytes (%) (Auto) 30.3 % (20.0-45.0) Monocytes (%) (Auto) 9.6 % (1.0-10.0) Eosinophils (%) (Auto) 4.8 % (0.0-3.0) H Basophils (%) (Auto) 1.0 % (0.0-2.0) Sodium Level 140 MMOL/L (136-145) Potassium Level 3.2 MMOL/L (3.5-5.1) L Chloride Level 105 MMOL/L (98-107) Carbon Dioxide Level 28 MMOL/L (21-32) Anion Gap 7 mmol/L (5-15) Blood Urea Nitrogen 2 mg/dL (7-18) L Creatinine 0.9 MG/DL (0.55-1.30) Estimat Glomerular Filtration Rate > 60 mL/min (>60) Glucose Level 91 MG/DL (74-106) Calcium Level 7.9 MG/DL (8.5-10.1) L Magnesium Level 1.7 MG/DL (1.8-2.4) L Pro-B-Type Natriuretic Peptide 575 pg/mL (0-125) H Current Medications Medications (Trade) Dose Ordered Sig/Mauricio Route PRN Reason Start Time Stop Time Status Last Admin Dose Admin Atorvastatin Calcium (Lipitor) 10 mg DAILY ORAL 09/22/20 09:00 12/21/20 08:59 09/25/20 08:19 Bisacodyl (Dulcolax) 10 mg QHS ORAL 09/21/20 21:00 12/20/20 20:59 09/24/20 20:17 Clopidogrel Bisulfate (Plavix) 75 mg DAILY ORAL 09/22/20 09:00 10/22/20 08:59 09/25/20 08:20 Dextrose/Sodium Chloride 1,000 ml @ 75 mls/hr [id number] IV 09/21/20 13:30 10/21/20 13:29 09/25/20 08:19 Diphenhydramine HCl (Benadryl) 25 mg Q6H PRN IVP Itching 09/21/20 13:30 10/21/20 13:29 Heparin Sodium (Porcine) (Heparin 5000 units/ml) 5,000 units EVERY 12 HOURS SUBQ 09/21/20 21:00 11/05/20 20:59 09/25/20 08:21 Hydralazine HCl (Apresoline) 10 mg Q6H PRN ORAL SBP above 150 or DBP above 95 09/24/20 15:00 12/23/20 14:59 Hydromorphone HCl (Dilaudid) 2 mg Q4H PRN IVP Severe Pain (Pain Scale 7-10) 09/21/20 13:30 09/28/20 13:29 09/25/20 10:18 Imipramine HCl (Tofranil) 50 mg TWICE A DAY ORAL 09/21/20 18:00 10/21/20 17:59 09/25/20 08:20 Linaclotide (Linzess) 290 mcg BEFORE BREAKFAST ORAL 09/26/20 06:30 12/25/20 06:29 Magnesium Sulfate 100 ml @ 100 mls/hr Q1H IVPB 09/25/20 13:00 09/25/20 14:59 Metoprolol Tartrate (Lopressor) 50 mg EVERY 12 HOURS ORAL 09/21/20 21:00 12/20/20 20:59 09/25/20 08:20 Ondansetron HCl (Zofran) 4 mg Q6H PRN IVP Nausea & Vomiting 09/21/20 13:30 10/21/20 13:29 09/25/20 02:05 Pantoprazole (Protonix) 40 mg QHS ORAL 09/21/20 21:00 10/21/20 20:59 09/24/20 20:16 Piperacillin Sod/ Tazobactam Sod 3.375 gm/Sodium Chloride 110 ml @ 27.5 mls/hr EVERY 8 HOURS IVPB 09/22/20 15:00 09/27/20 14:59 09/25/20 05:03 Potassium Chloride (K-Dur) 60 meq ONCE ORAL 09/25/20 13:00 09/25/20 14:00 Sorbitol (sorbitoL) 45 ml ONCE ORAL 09/25/20 11:00 09/25/20 12:30 09/25/20 10:17 Zolpidem Tartrate (Ambien) 5 mg BEDTIME ORAL 09/21/20 21:00 09/28/20 20:59 09/24/20 20:16 Sharon Rodriguez MD Sep 25, 2020 11:43
[2020-09-25] MEDS ORDERED: ASPIRIN EC81 MG ORAL (13:24)
--- NOTE | 2020-09-25 13:36 | NUR ---
CASE MANAGEMENT:REVIEW SI;DIVERTICULITIS. CYCLIC VOMITING SYNDROME. 98.1 80 18 157/98 95% ON RA K+ 3.2 CA 7.9 MAG 1.7 BNP 575 IS;MAG SULFATE IV K-DUR PO ONCE ZOSYN IV Q8 HEPARIN SUBQ Q12 PROTONIX PO QHS ZOFRAN IV Q6 PRN IVF D5NS @ 75 ML/HR DILAUDID IV Q4 PRN MED SURG STATUS DCP;FROM HOME PLAN; DIET UPGRADED
[2020-09-25] MEDS: HydrALAZINE 10mg Tab ORAL PRN ×2 (13:50→20:29)
--- NOTE | 2020-09-25 19:25 | NUR ---
NURSE HAND-OFF: Important Events on Shift: pain management Patient Status: stable Diet: cardiac Pending Orders: Pending Results/Labs: Pending MD notification: Latest Vital Signs: Temperature 98.3 , Pulse 86 , B/P 149 /90 , Respiratory Rate 18 , O2 SAT 96 , Room Air, O2 Flow Rate . Vital Sign Comment: Latest Gibbons Fall Score: 60 Fall Risk: High Risk Safety Measures: Call light Within Reach, Bed Alarm , Side Rails Side Rails x2, Bed position Low and Locked. Fall Precautions: Yellow Socks Door Sign Patient Fall Education Report given to Sarah Roy RN
--- NOTE | 2020-09-25 19:30 | NUR ---
NURSE NOTES: Received report & pt from RODRIGUEZ Luis. Pt in bed, a&ox4, in room air. No s/s of acute distress, no c/o pain at this time. PICC line intact with IVF running as ordered. Plan of care discussed.
[2020-09-25] MEDS: Zolpidem 5mg tab ORAL SCH (20:29)
[2020-09-25] MEDS: Bisacodyl EC 5mg tab ORAL SCH (20:31)
[2020-09-26] VITALS (7 sets, daily range): BP systolic 116–164; BP diastolic 77–97
--- NOTE | 2020-09-26 01:30 | NUR ---
NURSE NOTES: Pt asleep. Breathing unlabored. In no acute distress.
--- NOTE | 2020-09-26 01:33 | Cardiology Progress Note ---
Subjective DATE OF SERVICE: Sep 24, 2020 Still with abdominal pain. Limited po intake Nausea; no vomiting Denies CP or SOB. Notes occasional palpitations. Objective Last 24 Hour Vital Signs 156/90 83 17 afebrile ROS: unchanged from my evaluation of 09/23/20 HEENT: normal ENT inspection LUNGS: lungs clear bilaterally CARDIAC: normal rate, regular rhythm, normal S1 and S2, gallop/S4 ABDOMEN: soft, hyperactive bowel sounds, distended, tender EXTREMITIES: normal range of motion, non-tender, no calf tenderness, No edema Laboratory Tests Test 09/25/20 04:00 White Blood Count 4.6 K/UL (4.8-10.8) L Red Blood Count 4.37 M/UL (4.20-5.40) Hemoglobin 11.8 G/DL (12.0-16.0) L Hematocrit 37.5 % (37.0-47.0) Mean Corpuscular Volume 86 FL (80-99) Mean Corpuscular Hemoglobin 27.0 PG (27.0-31.0) Mean Corpuscular Hemoglobin Concent 31.4 G/DL (32.0-36.0) L Red Cell Distribution Width 13.0 % (11.6-14.8) Platelet Count 288 K/UL (150-450) Mean Platelet Volume 6.1 FL (6.5-10.1) L Neutrophils (%) (Auto) 54.2 % (45.0-75.0) Lymphocytes (%) (Auto) 30.3 % (20.0-45.0) Monocytes (%) (Auto) 9.6 % (1.0-10.0) Eosinophils (%) (Auto) 4.8 % (0.0-3.0) H Basophils (%) (Auto) 1.0 % (0.0-2.0) Sodium Level 140 MMOL/L (136-145) Potassium Level 3.2 MMOL/L (3.5-5.1) L Chloride Level 105 MMOL/L (98-107) Carbon Dioxide Level 28 MMOL/L (21-32) Anion Gap 7 mmol/L (5-15) Blood Urea Nitrogen 2 mg/dL (7-18) L Creatinine 0.9 MG/DL (0.55-1.30) Estimat Glomerular Filtration Rate > 60 mL/min (>60) Glucose Level 91 MG/DL (74-106) Calcium Level 7.9 MG/DL (8.5-10.1) L Magnesium Level 1.7 MG/DL (1.8-2.4) L Pro-B-Type Natriuretic Peptide 575 pg/mL (0-125) H Assessment/Plan Assessment/Plan Diverticulitis Vomitin Dehydration/hypovolemia ANemia HHD CAD with stable angina Hx hyperlipidemia Fibromyalgia with chronic pain. IVF Pain control Titrate antiHTN and anti-anginal meds; topical rx if needed. DVT prophylaxis Animicrobials per ID Hold statin rx for now. (late entry) Jamar Pabon MD Sep 26, 2020 01:33
--- NOTE | 2020-09-26 01:35 | Cardiology Progress Note ---
Subjective DATE OF SERVICE: Sep 25, 2020 Still with abdominal pain; slightly better.. Limited po intake Nausea; no vomiting Denies CP or SOB. No palps. Objective Last 24 Hour Vital Signs Date Time Temp Pulse Resp B/P (MAP) Pulse Ox O2 Delivery O2 Flow Rate FiO2 09/25/20 23:31 98.1 71 16 144/91 (108) 99 09/25/20 21:38 Room Air 09/25/20 20:29 173/103 09/25/20 20:29 85 173/103 09/25/20 20:00 98.5 85 18 173/103 (126) 98 09/25/20 16:00 98.3 86 18 149/90 (109) 96 09/25/20 13:50 167/97 09/25/20 12:00 98.0 74 18 167/97 (120) 95 09/25/20 09:00 Room Air 09/25/20 08:20 74 157/98 09/25/20 07:50 97.9 74 18 157/98 (117) 95 09/25/20 04:00 98.1 78 16 149/86 (107) 95 ROS: unchanged from my evaluation of 09/23/20 HEENT: normal ENT inspection LUNGS: lungs clear bilaterally CARDIAC: normal rate, regular rhythm, normal S1 and S2, gallop/S4 ABDOMEN: soft, hyperactive bowel sounds, distended, tender EXTREMITIES: normal range of motion, non-tender, no calf tenderness, No edema Laboratory Tests Test 09/25/20 04:00 White Blood Count 4.6 K/UL (4.8-10.8) L Red Blood Count 4.37 M/UL (4.20-5.40) Hemoglobin 11.8 G/DL (12.0-16.0) L Hematocrit 37.5 % (37.0-47.0) Mean Corpuscular Volume 86 FL (80-99) Mean Corpuscular Hemoglobin 27.0 PG (27.0-31.0) Mean Corpuscular Hemoglobin Concent 31.4 G/DL (32.0-36.0) L Red Cell Distribution Width 13.0 % (11.6-14.8) Platelet Count 288 K/UL (150-450) Mean Platelet Volume 6.1 FL (6.5-10.1) L Neutrophils (%) (Auto) 54.2 % (45.0-75.0) Lymphocytes (%) (Auto) 30.3 % (20.0-45.0) Monocytes (%) (Auto) 9.6 % (1.0-10.0) Eosinophils (%) (Auto) 4.8 % (0.0-3.0) H Basophils (%) (Auto) 1.0 % (0.0-2.0) Sodium Level 140 MMOL/L (136-145) Potassium Level 3.2 MMOL/L (3.5-5.1) L Chloride Level 105 MMOL/L (98-107) Carbon Dioxide Level 28 MMOL/L (21-32) Anion Gap 7 mmol/L (5-15) Blood Urea Nitrogen 2 mg/dL (7-18) L Creatinine 0.9 MG/DL (0.55-1.30) Estimat Glomerular Filtration Rate > 60 mL/min (>60) Glucose Level 91 MG/DL (74-106) Calcium Level 7.9 MG/DL (8.5-10.1) L Magnesium Level 1.7 MG/DL (1.8-2.4) L Pro-B-Type Natriuretic Peptide 575 pg/mL (0-125) H Assessment/Plan Assessment/Plan Diverticulitis Vomiting Dehydration/hypovolemia Anemia HHD with rising BP trend. CAD with stable angina Hx hyperlipidemia Fibromyalgia with chronic pain. IVF Pain control Titrate antiHTN and anti-anginal meds; topical rx if needed. DVT prophylaxis Animicrobials per ID Hold statin rx for now. Jamar Pabon MD Sep 26, 2020 01:35
--- NOTE | 2020-09-26 04:00 | Consultation ---
DATE OF CONSULTATION: 09/23/2020 CARDIOLOGY CONSULTATION CONSULTING PHYSICIAN: Jamar Pabon MD REQUESTING PHYSICIAN: Sudhakar Conti MD REASON FOR CONSULTATION: Management of coronary artery disease in the setting of acute diverticulitis. HISTORY OF PRESENT ILLNESS: Known to me from prior care, this is a pleasant 70-year-old female with known history of ischemic heart disease, hypertensive heart disease, and prior coronary stents. She has had history of cyclic vomiting and presented to the emergency room with intractable nausea and vomiting. The symptoms began 2 days prior to admission on September 21. Her workup included imaging studies and acute diverticulitis has been noted. The patient is unable to tolerate her medications at this time. I have been asked to assist with cardiovascular care. The patient has not complained of chest pain or shortness of breath. She has been compliant with medications, but has had a lot of vomiting and does not know if she has kept that down. MEDICATIONS: Reviewed and reconciled. ALLERGIES TO MEDICATIONS: None. PAST MEDICAL HISTORY: Includes coronary artery disease, history of myocardial infarction, history of coronary stents, hyperlipidemia, fibromyalgia, degenerative disk disease, status post cervical laminectomy, and hypertension. FAMILY HISTORY: Notable for hypertension. SOCIAL HISTORY: Negative for smoking, alcohol, or substance abuse. REVIEW OF SYSTEMS: No history of abnormal blood clotting. She is on anti-lipid therapy with statin drugs. There is no history of seizure or stroke. There is no history of diabetes or thyroid impairment. She has had a prior heart attack. She had LAD and circumflex marginal stent placed. She has had stable class 2 angina for some time. She had a stress echocardiogram at my office within the last year that revealed the absence of any flow-limiting disease, but that was at low workload due to poor exercise capacity. Her most recent echocardiogram has revealed normal ejection fraction, concentric hypertrophy, and a diastolic relaxation abnormality. There is no history of sustained cardiac arrhythmias. PHYSICAL EXAMINATION: VITAL SIGNS: Afebrile, blood pressure 152/94, heart rate 83, respiratory rate 16, oxygen saturation is 97% on room air. HEENT: Normocephalic and atraumatic. Arcus senilis. Oropharynx clear. NECK: Supple. No jugular venous distention. LUNGS: Clear. CARDIAC: Regular rhythm and rate. Normal S1, S2 with a fourth heart sound. ABDOMEN: Distended, soft, moderately tender diffusely unless in the mid-epigastric region with no guarding or hernias noted. EXTREMITIES: With poor IV access. No edema. LABORATORY DATA: Labs reviewed from yesterday, sodium 139, potassium 4.2, bicarb 29, BUN 17, creatinine 1.2. Albumin 3.8. White count 8.6 and hemoglobin 14.1. Urinalysis on the , with 2-4 white cells, 5-10 red cells, and 1+ leukocyte esterase. IMPRESSION: Acute diverticulitis, cyclic vomiting, dehydration, hypovolemia, coronary artery disease, stable angina, hypertensive heart disease with controlled blood pressure, and history of hyperlipidemia. PLAN: Hydration with IV fluids and pain control. Antimicrobials per Infectious Disease residential sales consultant. Okay to hold statin drug. Titrate antihypertensives based on clinical parameters. If unable to tolerate oral medications, topical nitrates can be considered. We would continue antiplatelet therapy unless signs of bleeding are noted. DVT prophylaxis should be initiated. We will follow with you during this hospital course and adjust therapies as needed. Jamar Pabon M.D. : [place] JOB#: [id number] CC:
[2020-09-26] MEDS: Piperacillin/Tazobactam 3.375 GM in NS 110 ML IVPB SCH (05:05)
--- NOTE | 2020-09-26 06:15 | NUR ---
NURSE NOTES: Dr. Conti made rounds & seen pt. Per MD, pt supposed to be d/c'd today however pt not eating very well. RN to call Sushila for pt update & stability throughout the day & get d/c order from . Will endorse to AM shift.
--- NOTE | 2020-09-26 06:34 | NUR ---
NURSE HAND-OFF: Important Events on Shift: Dr. Conti made rounds & seen pt. Per MD, pt supposed to be d/c'd today however pt not eating very well. RN to call Sushila for pt update & stability throughout the day & get d/c order from MD. Patient Status: poor PO intake Diet: Cardiac diet Pending Orders: Pending Results/Labs: Pending MD notification: Latest Vital Signs: Temperature 97.9 , Pulse 83 , B/P 136 /97 , Respiratory Rate 16 , O2 SAT 97 , Room Air, O2 Flow Rate . Vital Sign Comment: Latest Gibbons Fall Score: 60 Fall Risk: High Risk Safety Measures: Call light Within Reach, Bed Alarm , Side Rails Side Rails x2, Bed position Low and Locked. Fall Precautions: Yellow Socks Door Sign Patient Fall Education Report given to . Addendum: 09/26/20 at 725 by Manuela Contreras RN Report given to RODRIGUEZ Schulte. Addendum: 09/26/20 at 0728 by Manuela Contreras RN Report given to RODRIGUEZ Schulte.
--- NOTE | 2020-09-26 08:05 | NUR ---
NURSE NOTES: Received report from RODRIGUEZ Roy. Rounding done with outgoing nurse. Pt a/o x 4, having breakfast. No respiratory distress noted. Pt c/o abd pain as 02/17. Discussed plan of care today. Verbalized understanding. Bed in lowest position, call light within reach. Will continue to monitor.
[2020-09-26] MEDS: Imipramine 10mg tab ORAL SCH ×2 (08:31→17:21)
[2020-09-26] MEDS: D5NS 1,000 ML IV SCH ×2 (08:31→22:12)
[2020-09-26] MEDS: Metoprolol Tartrate 50mg tab ORAL SCH ×2 (08:32→21:03)
[2020-09-26] MEDS: Heparin 5000 units/ml inj SUBQ SCH (08:33)
--- NOTE | 2020-09-26 09:50 | General Progress Note ---
Subjective ROS Limited/Unobtainable: No Constitutional: Reports: malaise, weakness HEENT: Reports: no symptoms Cardiovascular: Reports: no symptoms Respiratory: Reports: no symptoms Gastrointestinal/Abdominal: Reports: abdominal pain Genitourinary: Reports: no symptoms Neurologic/Psychiatric: Reports: no symptoms Endocrine: Reports: no symptoms Hematologic/Lymphatic: Reports: no symptoms Allergies: Coded Allergies: ORANGE JUICE (Verified Allergy, Unknown, 06/25/14) All Systems: reviewed and negative except above Subjective no change. on regular diet. not eating due to pain. no nausea or vomiting. remains on iv zosyn. all noted. bp better controlled. +diarrhea- received laxative yesterday Objective Last 24 Hour Vital Signs Date Time Temp Pulse Resp B/P (MAP) Pulse Ox O2 Delivery O2 Flow Rate FiO2 09/26/20 08:32 91 116/84 09/26/20 08:00 98.2 91 20 116/84 (95) 96 09/26/20 04:53 97.9 83 16 136/97 (110) 97 09/25/20 23:31 98.1 71 16 144/91 (108) 99 09/25/20 21:38 Room Air 09/25/20 20:29 173/103 09/25/20 20:29 85 173/103 09/25/20 20:00 98.5 85 18 173/103 (126) 98 09/25/20 16:00 98.3 86 18 149/90 (109) 96 09/25/20 13:50 167/97 09/25/20 12:00 98.0 74 18 167/97 (120) 95 Intake and Output0 09/25/20 09/26/20 19:00 07:00 Intake Total 800 ml 1140 ml Balance 800 ml 1140 ml Intake Oral 800 ml 240 ml IV Total 900 ml # Voids 7 2 # Bowel Movements 7 Height (Feet): 5 Height (Inches): 4.00 Weight (Pounds): 138 Objective General Appearance: WD/WN, alert EENT: PERRL/EOMI, normal ENT inspection Neck: non-tender, normal alignment, supple Cardiovascular: normal peripheral pulses, normal rate, regular rhythm Respiratory/Chest: chest wall non-tender, lungs clear, normal breath sounds, no respiratory distress Abdomen: normal bowel sounds, soft, tender Edema: no edema noted Arm (L), no edema noted Arm (R) Neurologic: psychometrist II-XII grossly normal, no motor/sensory deficits, alert, oriented x 3 Assessment/Plan Problem List: (1) Diverticulitis ICD Codes: K57.92 - Diverticulitis of intestine, part unspecified, without perforation or abscess without bleeding SNOMED: 833232012 (2) Cyclic vomiting syndrome ICD Codes: G43.A0 - Cyclical vomiting, not intractable SNOMED: 97570413 (3) Hypertension ICD Codes: I10 - Essential (primary) hypertension SNOMED: 86457982 (4) CAD (coronary artery disease) ICD Codes: I25.10 - Atherosclerotic heart disease of [place] coronary artery without angina pectoris SNOMED: 71011420 (5) Dehydration ICD Codes: E86.0 - Dehydration SNOMED: 53401976 Status: stable Assessment/Plan: iv abx per ID pain rx antiemetics ivf until po intake better serial abd exams advance diet/po as tolerated cont current cardiac regime monitor bp dvt/stress ulcer prophylaxis dc when tolerating pos and off iv abx Sudhakar Conti MD Sep 26, 2020 09:50
--- NOTE | 2020-09-26 11:41 | Infectious Diseases Prog Note ---
Assessment/Plan Assessment/Plan antibiotics : zosyn A 1. diverticulitis improving 2. cardiomyopathy 3. hypertension P 1. d/c zosyn 2. start and continue po levoquin, flagyl 9 more days 3. will follow up cultures Subjective Constitutional: Denies: fever, chills Respiratory: Denies: shortness of breath, dry cough Gastrointestinal/Abdominal: Denies: nausea, vomiting, diarrhea Musculoskeletal: Reports: pain - in abdomen decreased Allergies: Coded Allergies: ORANGE JUICE (Verified Allergy, Unknown, 06/25/14) Objective Last 24 Hour Vital Signs Date Time Temp Pulse Resp B/P (MAP) Pulse Ox O2 Delivery O2 Flow Rate FiO2 09/26/20 09:00 Room Air 09/26/20 08:32 91 116/84 09/26/20 08:00 98.2 91 20 116/84 (95) 96 09/26/20 04:53 97.9 83 16 136/97 (110) 97 09/25/20 23:31 98.1 71 16 144/91 (108) 99 09/25/20 21:38 Room Air 09/25/20 20:29 173/103 09/25/20 20:29 85 173/103 09/25/20 20:00 98.5 85 18 173/103 (126) 98 09/25/20 16:00 98.3 86 18 149/90 (109) 96 09/25/20 13:50 167/97 09/25/20 12:00 98.0 74 18 167/97 (120) 95 Height (Feet): 5 Height (Inches): 4.00 Weight (Pounds): 138 Respiratory/Chest: lungs clear Cardiovascular: normal rate, regular rhythm, no gallop/murmur Abdomen: soft, non tender Extremities: no edema Current Medications Medications (Trade) Dose Ordered Sig/Mauricio Route PRN Reason Start Time Stop Time Status Last Admin Dose Admin Atorvastatin Calcium (Lipitor) 10 mg DAILY ORAL 09/22/20 09:00 12/21/20 08:59 09/26/20 08:32 Bisacodyl (Dulcolax) 10 mg QHS ORAL 09/21/20 21:00 12/20/20 20:59 09/24/20 20:17 Clopidogrel Bisulfate (Plavix) 75 mg DAILY ORAL 09/22/20 09:00 10/22/20 08:59 09/26/20 08:32 Dextrose/Sodium Chloride 1,000 ml @ 75 mls/hr [id number] IV 09/21/20 13:30 10/21/20 13:29 09/26/20 08:31 Diphenhydramine HCl (Benadryl) 25 mg Q6H PRN IVP Itching 09/21/20 13:30 10/21/20 13:29 Hydralazine HCl (Apresoline) 10 mg Q6H PRN ORAL SBP above 150 or DBP above 95 09/24/20 15:00 12/23/20 14:59 09/25/20 20:29 Hydromorphone HCl (Dilaudid) 2 mg Q4H PRN IVP Severe Pain (Pain Scale 7-10) 09/21/20 13:30 09/28/20 13:29 09/26/20 09:33 Imipramine HCl (Tofranil) 50 mg TWICE A DAY ORAL 09/21/20 18:00 10/21/20 17:59 09/26/20 08:31 Lactobacillus Acidophilus (Culturelle) 1 tab THREE TIMES A DAY ORAL 09/26/20 13:00 12/25/20 12:59 Linaclotide (Linzess) 290 mcg BEFORE BREAKFAST ORAL 09/26/20 06:30 12/25/20 06:29 09/26/20 06:09 Metoprolol Tartrate (Lopressor) 50 mg EVERY 12 HOURS ORAL 09/21/20 21:00 12/20/20 20:59 09/26/20 08:32 Ondansetron HCl (Zofran) 4 mg Q6H PRN IVP Nausea & Vomiting 09/21/20 13:30 10/21/20 13:29 09/26/20 04:58 Pantoprazole (Protonix) 40 mg QHS ORAL 09/21/20 21:00 10/21/20 20:59 09/25/20 20:29 Piperacillin Sod/ Tazobactam Sod 3.375 gm/Sodium Chloride 110 ml @ 27.5 mls/hr EVERY 8 HOURS IVPB 09/22/20 15:00 09/27/20 14:59 09/26/20 05:05 Zolpidem Tartrate (Ambien) 5 mg BEDTIME ORAL 09/21/20 21:00 09/28/20 20:59 09/25/20 20:29 Sharon Rodriguez MD Sep 26, 2020 11:41
[2020-09-26] MEDS: Levofloxacin 500mg tab ORAL SCH (12:53)
[2020-09-26] MEDS: Lactobacillus-GG tablet ORAL SCH ×2 (12:53→17:21)
[2020-09-26] MEDS: metroNIDAZOLE 500mg tab ORAL SCH ×2 (14:19→21:03)
[2020-09-26] MEDS: HydrALAZINE 10mg Tab ORAL PRN (16:07)
--- NOTE | 2020-09-26 18:49 | NUR ---
NURSE HAND-OFF: Important Events on Shift: pain meds x3 Patient Status: stable Diet: cardiac diet Pending Orders: n/a Pending Results/Labs:n/a Pending MD notification:n/a Latest Vital Signs: Temperature 98.1 , Pulse 91 , B/P 156 /96 , Respiratory Rate 18 , O2 SAT 95 , Room Air, O2 Flow Rate . Vital Sign Comment: stable Latest Gibbons Fall Score: 60 Fall Risk: High Risk Safety Measures: Call light Within Reach, Bed Alarm , Side Rails Side Rails x2, Bed position Low and Locked. Fall Precautions: Yellow Socks Door Sign Patient Fall Education Report given to RODRIGUEZ Roy.
--- NOTE | 2020-09-26 19:31 | NUR ---
NURSE NOTES: Received report & pt from RODRIGUEZ Schulte. Pt in bed, a&ox4, in room air. No s/s of acute distress & c/o 7/10 pain at this time. Will give PRN pain med when due & pt verbalized understanding. PICC line intact with IVF running as ordered. Plan of care discussed.
[2020-09-26] MEDS: Bisacodyl EC 5mg tab ORAL SCH (21:00)
[2020-09-26] MEDS: Zolpidem 5mg tab ORAL SCH (21:03)
--- NOTE | 2020-09-26 21:43 | General Progress Note ---
Subjective Allergies: Coded Allergies: ORANGE JUICE (Verified Allergy, Unknown, 06/25/14) Subjective Feels better tolerating po multiple loose BM pain better Objective Last 24 Hour Vital Signs Date Time Temp Pulse Resp B/P (MAP) Pulse Ox O2 Delivery O2 Flow Rate FiO2 09/26/20 21:10 Room Air 09/26/20 21:03 89 164/95 09/26/20 20:59 98.6 89 18 164/95 (118) 94 09/26/20 17:20 91 156/96 (116) 09/26/20 16:07 163/90 09/26/20 16:00 98.1 78 18 163/90 (114) 95 09/26/20 12:00 98.2 77 18 119/77 (91) 97 09/26/20 09:00 Room Air 09/26/20 08:32 91 116/84 09/26/20 08:00 98.2 91 20 116/84 (95) 96 09/26/20 04:53 97.9 83 16 136/97 (110) 97 09/25/20 23:31 98.1 71 16 144/91 (108) 99 Intake and Output 09/25/20 09/26/20 19:00 07:00 Intake Total 800 ml 1140 ml Balance 800 ml 1140 ml Intake Oral 800 ml 240 ml IV Total 900 ml # Voids 7 2 # Bowel Movements 7 Height (Feet): 5 Height (Inches): 4.00 Weight (Pounds): 138 Objective WDWN woman NCAT supple CTA RR; abd soft , mild lower abd TTP no edema Assessment/Plan Status: stable Assessment/Plan: Assessment - Chronic constipatioin - diverticulitis - cyclic N/V Recommendations - po as tolerated - abx - bowel regimen - OOB - d/c planning Kim Varghese MD Sep 26, 2020 21:43
--- NOTE | 2020-09-27 00:27 | Cardiology Progress Note ---
Subjective DATE OF SERVICE: Sep 26, 2020 Decreasing abdominal pain; slightly better. Slightly better po intake Nausea; no more vomiting Denies CP or SOB. No palps. Increasing skin bruising Objective Last 24 Hour Vital Signs Date Time Temp Pulse Resp B/P (MAP) Pulse Ox O2 Delivery O2 Flow Rate FiO2 09/26/20 23:22 98.0 70 16 149/93 (111) 98 09/26/20 21:10 Room Air 09/26/20 21:03 89 164/95 09/26/20 20:59 98.6 89 18 164/95 (118) 94 09/26/20 17:20 91 156/96 (116) 09/26/20 16:07 163/90 09/26/20 16:00 98.1 78 18 163/90 (114) 95 09/26/20 12:00 98.2 77 18 119/77 (91) 97 09/26/20 09:00 Room Air 09/26/20 08:32 91 116/84 09/26/20 08:00 98.2 91 20 116/84 (95) 96 09/26/20 04:53 97.9 83 16 136/97 (110) 97 ROS: unchanged from my evaluation of 09/23/20 HEENT: normal ENT inspection LUNGS: lungs clear bilaterally CARDIAC: normal rate, regular rhythm, normal S1 and S2, gallop/S4 ABDOMEN: soft, hyperactive bowel sounds, distended, tender EXTREMITIES: normal range of motion, non-tender, no calf tenderness, No edema, other - ecchymoses on extremities and trunk Assessment/Plan Assessment/Plan Diverticulitis Vomiting Dehydration/hypovolemia Anemia HHD with rising BP trend. CAD with stable angina Hx hyperlipidemia Fibromyalgia with chronic pain. Ecchymoses due to heparin subcut IVF Pain control Titrate antiHTN and anti-anginal meds; topical rx if needed. DVT prophylaxis Animicrobials per ID Hold statin rx for now. DC heparin Add probiotic Jamar Pabon MD Sep 27, 2020 00:26
[2020-09-27] MEDS: metroNIDAZOLE 500mg tab ORAL SCH (06:08)
--- NOTE | 2020-09-27 06:53 | NUR ---
NURSE HAND-OFF: Important Events on Shift:pain management Patient Status: stable Diet: cardiac diet Pending Orders: none Pending Results/Labs:none Pending MD notification:none Latest Vital Signs: Temperature 98.0 , Pulse 70 , B/P 149 /93 , Respiratory Rate 16 , O2 SAT 98 , Room Air, O2 Flow Rate . Vital Sign Comment: none Latest Gibbons Fall Score: 60 Fall Risk: High Risk Safety Measures: Call light Within Reach, Bed Alarm , Side Rails Side Rails x2, Bed position Low and Locked. Fall Precautions: Yellow Socks Door Sign Patient Fall Education Report given to . Addendum: 09/27/20 at 0737 by Manuela Contreras RN Report given to RODRIGUEZ Ordaz.
--- NOTE | 2020-09-27 07:05 | NUR ---
NURSE NOTES: Handoff received from Manuela FRIAS. Patient is awake and alert, reporting level 8 pain. Will medicate as ordered. Patient managed to eat half of her breakfast with no reports of nausea. Patient updated on plan of care and possible discharge this AM. [facility] PICC is patent and running IVF as ordered. Bed is low and locked, side rails up x2, call light is within reach.
[2020-09-27 08:00] VITALS: BP 131/77
[2020-09-27] MEDS: Levofloxacin 500mg tab ORAL SCH (09:00)
--- NOTE | 2020-09-27 09:00 | NUR ---
NURSE NOTES: PO levaquin was too close to last dose to administer per protocol. Patient being discharged.
[2020-09-27] MEDS: Imipramine 10mg tab ORAL SCH (09:02)
[2020-09-27] MEDS: Lactobacillus-GG tablet ORAL SCH (09:02)
[2020-09-27] MEDS: Metoprolol Tartrate 50mg tab ORAL SCH (09:04)
--- NOTE | 2020-09-27 09:15 | Discharge Summary ---
DATE OF ADMISSION: 09/21/2020 DATE OF DISCHARGE: 09/27/2020 ADMISSION DIAGNOSES: 1. Intractable nausea and vomiting. 2. Cyclic vomiting. 3. Ischemic cardiomyopathy. 4. Hypertension. 5. History of cervical radiculopathy. 6. Chronic back pain. 7. History of diverticulosis. DISCHARGE DIAGNOSES: 1. Intractable nausea and vomiting. 2. Cyclic vomiting. 3. Ischemic cardiomyopathy. 4. Hypertension. 5. History of cervical radiculopathy. 6. Chronic back pain. 7. History of diverticulosis. 8. Diverticulitis. HOSPITAL COURSE: The patient was admitted with complaints of intractable nausea and vomiting and abdominal pain. She was hydrated. She received IV pain medications, antiemetics. She had a CAT scan of the abdomen that showed diverticulitis. There was no abscess noted. The patient was initially placed NPO and started on a clear liquid diet. Her diet was advanced gradually. ID, GI consultation and Cardiology consultations were all obtained. The patient improved with conservative treatment. On discharge, was stable. She will be discharged home to complete another week of oral antibiotic therapy for diverticulitis. DISCHARGE MEDICATIONS: Please see discharge medication list for discharge medications. DIET: Cardiac diet. ACTIVITY: Ad-osvaldo. FOLLOWUP: The patient is to follow up in the office in one to two weeks. Sudhakar Conti M.D. DR: OTONIEL JOB#: [id number] CC:
--- NOTE | 2020-09-27 09:48 | NUR ---
NURSE NOTES: Per williams Santana to remove PICC line before discharge
--- NOTE | 2020-09-27 11:26 | Infectious Diseases Prog Note ---
Assessment/Plan Assessment/Plan antibiotics : levoquin, flagyl A 1. diverticulitis improving 2. cardiomyopathy 3. hypertension P 1. continue po levoquin, flagyl 8 more days 2. will follow up cultures Subjective Constitutional: Denies: fever, chills Respiratory: Denies: shortness of breath, dry cough Gastrointestinal/Abdominal: Denies: nausea, vomiting, diarrhea Musculoskeletal: Reports: pain - decreased in abdomen Allergies: Coded Allergies: ORANGE JUICE (Verified Allergy, Unknown, 06/25/14) Objective Last 24 Hour Vital Signs Date Time Temp Pulse Resp B/P (MAP) Pulse Ox O2 Delivery O2 Flow Rate FiO2 09/27/20 09:04 85 131/77 09/27/20 09:00 Room Air 09/27/20 08:17 98.0 09/27/20 08:00 98.4 85 17 131/77 (95) 98 09/26/20 23:22 98.0 70 16 149/93 (111) 98 09/26/20 21:10 Room Air 09/26/20 21:03 89 164/95 09/26/20 20:59 98.6 89 18 164/95 (118) 94 09/26/20 17:20 91 156/96 (116) 09/26/20 16:07 163/90 09/26/20 16:00 98.1 78 18 163/90 (114) 95 09/26/20 12:00 98.2 77 18 119/77 (91) 97 Height (Feet): 5 Height (Inches): 4.00 Weight (Pounds): 138 Respiratory/Chest: lungs clear Cardiovascular: normal rate, regular rhythm, no gallop/murmur Abdomen: soft, non tender Extremities: no edema, other - left arm PICC Current Medications Medications (Trade) Dose Ordered Sig/Mauricio Route PRN Reason Start Time Stop Time Status Last Admin Dose Admin Atorvastatin Calcium (Lipitor) 10 mg DAILY ORAL 09/22/20 09:00 12/21/20 08:59 09/27/20 09:02 Bisacodyl (Dulcolax) 10 mg QHS ORAL 09/21/20 21:00 12/20/20 20:59 09/24/20 20:17 Clopidogrel Bisulfate (Plavix) 75 mg DAILY ORAL 09/22/20 09:00 10/22/20 08:59 09/27/20 09:02 Dextrose/Sodium Chloride 1,000 ml @ 75 mls/hr [id number] IV 09/21/20 13:30 10/21/20 13:29 09/26/20 22:12 Diphenhydramine HCl (Benadryl) 25 mg Q6H PRN IVP Itching 09/21/20 13:30 10/21/20 13:29 Hydralazine HCl (Apresoline) 10 mg Q6H PRN ORAL SBP above 150 or DBP above 95 09/24/20 15:00 12/23/20 14:59 09/26/20 16:07 Hydromorphone HCl (Dilaudid) 2 mg Q4H PRN IVP Severe Pain (Pain Scale 7-10) 09/21/20 13:30 09/28/20 13:29 09/27/20 07:47 Imipramine HCl (Tofranil) 50 mg TWICE A DAY ORAL 09/21/20 18:00 10/21/20 17:59 09/27/20 09:02 Lactobacillus Acidophilus (Culturelle) 1 tab THREE TIMES A DAY ORAL 09/26/20 13:00 12/25/20 12:59 09/27/20 09:02 Levofloxacin (Levaquin) 500 mg DAILY ORAL 09/26/20 12:00 10/03/20 11:59 09/26/20 12:53 Linaclotide (Linzess) 290 mcg BEFORE BREAKFAST ORAL 09/26/20 06:30 12/25/20 06:29 09/26/20 06:09 Metoprolol Tartrate (Lopressor) 50 mg EVERY 12 HOURS ORAL 09/21/20 21:00 12/20/20 20:59 09/27/20 09:04 Metronidazole (Flagyl) 500 mg Q8HR ORAL 09/26/20 14:00 10/03/20 13:59 09/27/20 06:08 Ondansetron HCl (Zofran) 4 mg Q6H PRN IVP Nausea & Vomiting 09/21/20 13:30 10/21/20 13:29 09/26/20 22:32 Pantoprazole (Protonix) 40 mg QHS ORAL 09/21/20 21:00 10/21/20 20:59 09/26/20 21:03 Zolpidem Tartrate (Ambien) 5 mg BEDTIME ORAL 09/21/20 21:00 09/28/20 20:59 09/26/20 21:03 Sharon Rodriguez MD Sep 27, 2020 11:26
[2020-09-27] MEDS: D5NS 1,000 ML IV SCH (11:30)
[2020-09-27 12:00] VITALS: BP 161/91
--- NOTE | 2020-09-27 12:19 | NUR ---
NURSE NOTES: Patient safely discharged from to home via taxi, voucher provided by [facility]. Patient belongings list verified and signed, medications returned from pharmacy, and prescription provided. Patient made followup appointment with Dr. rosario. Patient's questions were answered. PICC line and ID wristband removed.
[2020-09-27] MEDS ORDERED: D5NS 1000ml IV ONE (12:34)
[2020-09-27] MEDS ORDERED: Tubing IV Secondary IV ONE (12:34)
--- NOTE | 2020-09-27 20:43 | General Progress Note ---
Subjective Allergies: Coded Allergies: ORANGE JUICE (Verified Allergy, Unknown, 06/25/14) Subjective Feels better tolerating po for d/c today pain better Objective Last 24 Hour Vital Signs Date Time Temp Pulse Resp B/P (MAP) Pulse Ox O2 Delivery O2 Flow Rate FiO2 09/27/20 12:00 98.3 68 18 161/91 (114) 100 09/27/20 09:04 85 131/77 09/27/20 09:00 Room Air 09/27/20 08:17 98.0 09/27/20 08:00 98.4 85 17 131/77 (95) 98 09/26/20 23:22 98.0 70 16 149/93 (111) 98 09/26/20 21:10 Room Air 09/26/20 21:03 89 164/95 09/26/20 20:59 98.6 89 18 164/95 (118) 94 Intake and Output 09/26/20 09/27/20 19:00 07:00 Intake Total 1185 ml 1500 ml Balance 1185 ml 1500 ml Intake Oral 360 ml 600 ml IV Total 825 ml 900 ml # Voids 2 3 Height (Feet): 5 Height (Inches): 4.00 Weight (Pounds): 138 Objective WDWN woman NCAT supple CTA RR; abd soft , mild lower abd TTP no edema Assessment/Plan Status: stable Assessment/Plan: Assessment - Chronic constipatioin - diverticulitis - cyclic N/V Recommendations - po as tolerated - abx - bowel regimen - OOB - d/c planning - Nati Rx sent to pt pharmacy Kim Varghese MD Sep 27, 2020 20:42
--- NOTE | 2020-09-27 22:43 | Cardiology Progress Note ---
Subjective DATE OF SERVICE: Sep 27, 2020 Decreasing abdominal pain; slightly better. Tolerating a fair amount of po intake Nausea; no more vomiting Denies CP or SOB. No palps. Increasing skin bruising Objective Last 24 Hour Vital Signs Date Time Temp Pulse Resp B/P (MAP) Pulse Ox O2 Delivery O2 Flow Rate FiO2 09/27/20 12:00 98.3 68 18 161/91 (114) 100 09/27/20 09:04 85 131/77 09/27/20 09:00 Room Air 09/27/20 08:17 98.0 09/27/20 08:00 98.4 85 17 131/77 (95) 98 09/26/20 23:22 98.0 70 16 149/93 (111) 98 ROS: unchanged from my evaluation of 09/23/20 HEENT: normal ENT inspection LUNGS: lungs clear bilaterally CARDIAC: normal rate, regular rhythm, normal S1 and S2, gallop/S4 ABDOMEN: soft, hyperactive bowel sounds, distended, tender EXTREMITIES: normal range of motion, non-tender, no calf tenderness, No edema, other - ecchymoses on extremities and trunk Assessment/Plan Assessment/Plan Diverticulitis resolving Vomiting resolved Dehydration/hypovolemia recovered. Anemia HHD with rising BP trend. CAD with stable angina Hx hyperlipidemia Fibromyalgia with chronic pain. Ecchymoses due to heparin subcut Off IVF Pain control Maintain current antiHTN and anti-anginal meds. DVT prophylaxis Animicrobials per ID Resume statin rx now. Continue probiotic Jamar Pabon MD Sep 27, 2020 22:43
== END 2020-09-27 12:35 | disposition home or self-care (01) | DRG 392 ==
LOC: 3E 12:07
PROC: 05HC33Z Insertion of Infusion Device into Left Basilic Vein, Percutaneous Approach (ICD-10-PCS; principal; 2020-09-22)
DX: K57.32 Diverticulitis of large intestine without perforation or abscess without bleeding (principal); R11.15 Cyclical vomiting syndrome unrelated to migraine; I25.5 Ischemic cardiomyopathy; E86.0 Dehydration; M50.10 Cervical disc disorder with radiculopathy, unspecified cervical region; G89.29 Other chronic pain; M54.9 Dorsalgia, unspecified; Z79.01 Long term (current) use of anticoagulants; K21.9 Gastro-esophageal reflux disease without esophagitis; I25.118 Atherosclerotic heart disease of native coronary artery with other forms of angina pectoris; Z95.5 Presence of coronary angioplasty implant and graft; K58.9 Irritable bowel syndrome, unspecified; Z79.02 Long term (current) use of antithrombotics/antiplatelets; E78.5 Hyperlipidemia, unspecified; I25.2 Old myocardial infarction; M79.7 Fibromyalgia; E86.1 Hypovolemia; I11.9 Hypertensive heart disease without heart failure; K59.09 Other constipation; R58 Hemorrhage, not elsewhere classified; T45.515A Adverse effect of anticoagulants, initial encounter
CPT/HCPCS: 36415; 36573; 74176; 76937; 80048; 80053; 80307; 81001; 83690; 83735; 83880; 85025; J2405; J8499

== ENCOUNTER 2020-10-18 15:40 | Emergency (ER) | payer MEDICAID, MEDICARE ==
[~2020-10-18] VITALS: Ht 162.6 cm; Wt 59.4 kg
[~2020-10-18 15:40] MED LIST changes: +ASPIRIN EC81 MG ORAL
[2020-10-18 16:00] VITALS: BP 151/93
--- NOTE | 2020-10-18 16:00 | NUR ---
ED Nurse Note: Pt walked in from home c/o abd pain with n/v d/t diverticulitis. Denies blood in vomit or stool. Pt recently hospitalized for same symptoms. Respirations even and unlabored on room air. Vitals stable as documented. A+Ox4, speaking in complete sentences.
[2020-10-18] MEDS ORDERED: Hydromorphone 0.5mg/0.5ml inj IVP ONE (16:30)
--- NOTE | 2020-10-18 16:31 | Emergency Room Report ---
History of Present Illness General Chief Complaint: Vomiting Source: Patient Present Illness HPI Is a 70-year-old female presents for increased abdominal pain. Reports of increased epigastric pain. Multiple episodes similar in the past. Had recent hospitalization for diverticulitis at [facility]. Reports of increased vomiting as well as some dark brown emesis. Reports of increased epigastric pain. States that she had been followed by Dr. Varghese for GI. Prior history of irritable bowel disease on Linzess as well as multiple other medications. 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 RESOURCE ROOM TEACHER: No COVID-19 Screening: Negative COVID-19 COVID-19 Testing Source: [facility] Patient History Past Medical History: see triage record Last Menstrual Period: na Reviewed Nursing Documentation: PMH: Agreed; PSxH: Agreed Nursing Documentation-PMH Past Medical History: No History, Except For Hx Cardiac Problems: Yes Hx Hypertension: Yes Hx Pacemaker: No Hx Cancer: No Hx Gastrointestinal Problems: Yes - diverticulitis Hx Neurological Problems: No Review of Systems All Other Systems: negative except mentioned in HPI Physical Exam Vital Signs Date Time Temp Pulse Resp B/P (MAP) Pulse Ox O2 Delivery O2 Flow Rate FiO2 10/18/20 15:50 98.4 108 20 159/98 (118) 95 Room Air Sp02 EP Interpretation: reviewed, normal General Appearance: normal inspection, well appearing, no apparent distress, alert, GCS 15 Head: atraumatic ENT: normal ENT inspection, hearing grossly normal, normal voice Neck: normal inspection, full range of motion, supple, no bony tend Respiratory: normal inspection, lungs clear, normal breath sounds, no respiratory distress, no retraction, no wheezing Cardiovascular #1: regular rate, rhythm, no edema Gastrointestinal: normal inspection, normal bowel sounds, non tender, soft, no guarding, no hernia Genitourinary: no CVA tenderness Musculoskeletal: normal inspection, back normal, normal range of motion Neurologic: alert, motor strength/tone normal, 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 Differential diagnosis include was not limited to GI bleeding, peptic ulcer disease, opiate withdrawal among others. Because of complexity of patient's case laboratory tests and imaging studies were ordered. Patient was given pain medications as well as IV fluids with improvement. Patient was subsequently able to tolerate oral fluids. Patient was discussed with Dr. Pabon and patient be followed in clinic. The patient is advised to follow up with primary care doctor in 1-2 days. Patient is advised to return if any worsening condition or if any changes in status that are concerning. This report is dictated with [employer] sugar controller software which may occasionally lead to discrepancies related to use of this software. Labs Test 10/18/20 17:00 White Blood Count 9.3 K/UL (4.8-10.8) Red Blood Count 5.37 M/UL (4.20-5.40) Hemoglobin 14.3 G/DL (12.0-16.0) Hematocrit 41.8 % (37.0-47.0) Mean Corpuscular Volume 78 FL (80-99) Mean Corpuscular Hemoglobin 26.6 PG (27.0-31.0) Mean Corpuscular Hemoglobin Concent 34.1 G/DL (32.0-36.0) Red Cell Distribution Width 15.0 % (11.6-14.8) Platelet Count 456 K/UL (150-450) Mean Platelet Volume 6.0 FL (6.5-10.1) Neutrophils (%) (Auto) 83.1 % (45.0-75.0) Lymphocytes (%) (Auto) 12.7 % (20.0-45.0) Monocytes (%) (Auto) 3.2 % (1.0-10.0) Eosinophils (%) (Auto) 0.0 % (0.0-3.0) Basophils (%) (Auto) 0.9 % (0.0-2.0) Prothrombin Time 11.8 SEC (9.30-11.50) Prothromb Time International Ratio 1.1 (0.9-1.1) Activated Partial Thromboplast Time 28 SEC (23-33) Urine Color Pale yellow Urine Appearance Slightly cloudy Urine pH 8 (4.5-8.0) Urine Specific [place] 1.010 (1.005-1.035) Urine Protein 3+ (NEGATIVE) Urine Glucose (UA) Negative (NEGATIVE) Urine Ketones 1+ (NEGATIVE) Urine Blood 4+ (NEGATIVE) Urine Nitrite Negative (NEGATIVE) Urine Bilirubin Negative (NEGATIVE) Urine Urobilinogen Normal MG/DL (0.0-1.0) Urine Leukocyte Esterase Negative (NEGATIVE) Urine RBC 30-40 /HPF (0 - 2) Urine WBC 2-4 /HPF (0 - 2) Urine Squamous Epithelial Cells Moderate /LPF (NONE/OCC) Urine Bacteria Few /HPF (NONE) Sodium Level 138 MMOL/L (136-145) Potassium Level 3.0 MMOL/L (3.5-5.1) Chloride Level 96 MMOL/L (98-107) Carbon Dioxide Level 31 MMOL/L (21-32) Anion Gap 11 mmol/L (5-15) Blood Urea Nitrogen 7 mg/dL (7-18) Creatinine 0.8 MG/DL (0.55-1.30) Estimat Glomerular Filtration Rate > 60 mL/min (>60) Glucose Level 119 MG/DL (74-106) Calcium Level 9.4 MG/DL (8.5-10.1) Total Bilirubin 0.4 MG/DL (0.2-1.0) Aspartate Amino Transf (AST/SGOT) 15 U/L (15-37) Alanine Aminotransferase (ALT/SGPT) 16 U/L (12-78) Alkaline Phosphatase 129 U/L (46-116) Troponin I 0.000 ng/mL (0.000-0.056) Total Protein 8.6 G/DL (6.4-8.2) Albumin 4.1 G/DL (3.4-5.0) Globulin 4.5 g/dL Albumin/Globulin Ratio 0.9 (1.0-2.7) Lipase 174 U/L (73-393) Last Vital Signs Date Time Temp Pulse Resp B/P (MAP) Pulse Ox O2 Delivery O2 Flow Rate FiO2 10/18/20 15:50 98.4 108 20 159/98 (118) 95 Room Air Status: improved Disposition: HOME, SELF-CARE Condition: Stable Scripts Ciprofloxacin Hcl* (CIPROFLOXACIN HCL*) 500 Mg Tablet 500 MG ORAL Q12H, #10 TAB 0 Refills Prov: Mukesh Zabala MD 10/18/20 Metronidazole* (FLAGYL*) 500 Mg Tablet 500 MG ORAL BID, #14 TAB Prov: Mukesh Zabala MD 10/18/20 Ondansetron Odt* (ZOFRAN ODT*) 8 Mg Tab.rapdis 8 MG ORAL Q6H PRN for Nausea & Vomiting, #30 TAB Prov: Mukesh Zabala MD 10/18/20 Mukesh Zabala MD Oct 18, 2020 16:31
[2020-10-18 17:52] LABS: APPEARANCE,URINE SLIGHTLY CLOUDY; BILIRUBIN, URINE NEGATIVE (NEGATIVE); COLOR,URINE PALE YELLOW; GLUCOSE, URINE (UA) NEGATIVE (NEGATIVE); KETONES,URINE 1+ (NEGATIVE); LEUKOCYTE ESTERASE ,URINE NEGATIVE (NEGATIVE); NITRITE,URINE NEGATIVE (NEGATIVE); PH,URINE 8 (4.5-8.0); PROTEIN,URINE 3+ (NEGATIVE); UROBILINOGEN,URINE NORMAL MG/DL (0.0-1.0)
[2020-10-18 17:56] LABS: INR 1.1 (0.9-1.1)
[2020-10-18 17:59] LABS: BASOPHILS % (AUTO) 0.9 % (0.0-2.0); HEMATOCRIT 41.8 % (37.0-47.0); HEMOGLOBIN 14.3 G/DL (12.0-16.0); LYMPHOCYTES % (AUTO) 12.7 % (20.0-45.0); MEAN CORPUSCULAR VOLUME 78 FL (80-99); MONOCYTES % (AUTO) 3.2 % (1.0-10.0); NEUTROPHILS % (AUTO) 83.1 % (45.0-75.0); PLATELET COUNT 456 K/UL (150-450); RED BLOOD COUNT 5.37 M/UL (4.20-5.40); WHITE BLOOD COUNT 9.3 K/UL (4.8-10.8)
[2020-10-18 18:00] VITALS: BP 147/89
[2020-10-18 18:04] LABS: ANION GAP 11 mmol/L (5-15); BLOOD UREA NITROGEN 7 mg/dL (7-18); CALCIUM 9.4 MG/DL (8.5-10.1); CARBON DIOXIDE 31 MMOL/L (21-32); CHLORIDE 96 MMOL/L (98-107); CREATININE 0.8 MG/DL (0.55-1.30); SODIUM 138 MMOL/L (136-145)
[2020-10-18 18:10] LABS: ALANINE AMINOTRANSFERASE 16 U/L (12-78); ALBUMIN 4.1 G/DL (3.4-5.0); ALBUMIN/GLOBULIN RATIO 0.9 (1.0-2.7); ALKALINE PHOSPHATASE 129 U/L (46-116); ASPARTATE AMINO TRANSFERASE 15 U/L (15-37); BILIRUBIN,TOTAL 0.4 MG/DL (0.2-1.0)
--- NOTE | 2020-10-18 19:12 | NUR ---
HAND-OFF: Report given to Tomeka FRIAS .
[2020-10-18] MEDS ORDERED: ZOFRAN ODT8 MG ORAL (19:49)
[2020-10-18] MEDS ORDERED: METRONIDAZOLE500 MG ORAL (19:49)
[2020-10-18] MEDS ORDERED: CIPROFLOXACIN500 M2 ORAL (19:50)
[2020-10-18 20:40] VITALS: BP 132/80
--- NOTE | 2020-10-18 20:40 | NUR ---
ER DISCHARGE NOTE: Patient is cleared to be discharged per ERMD, pt is aox4, on room air, with stable vital signs. pt was given dc and prescription instructions, pt was able to verbalize understanding, pt id band and iv site removed without complications. pt is able to ambulate with steady gait. pt took all belongings. Pt tolerated PO challenge well
== END 2020-10-18 20:40 | disposition home or self-care (01) ==
LOC: EMR 16:30
DX: R11.15 Cyclical vomiting syndrome unrelated to migraine (principal); I11.9 Hypertensive heart disease without heart failure; Z87.19 Personal history of other diseases of the digestive system; Z91.018 Allergy to other foods; Z79.82 Long term (current) use of aspirin; Z79.899 Other long term (current) drug therapy
CPT/HCPCS: 36415; 80053; 81003; 83690; 84484; 85025; 85610; 85730; 96361; 96374; 96375; 99284; J1170; J2405; J7030; J7040; S0028; J8499